=== PATIENT | female | born 1950 | race Two or more races ===

== ENCOUNTER 2022-09-13 06:33 | Outpatient (OUT) | payer MEDICARE, MEDICAID, SELFPAY ==
[2022-09-13 07:05] LABS: Basophils Percent Auto 0.4 % (0.2-2.0); Eosinophils Absolute Auto 0.2 10^3/uL (0.0-0.7); Eosinophils Percent Auto 2.4 % (0.9-7.0); Hematocrit 40.8 % (36.0-48.0); Hemoglobin 13.4 g/dL (12.0-16.0); Immature Granulocytes Abs Auto 0.02 10^3/uL (0.00-0.03); Immature Granulocytes Pct Auto 0.3 % (0.0-0.5); Lymphocytes Absolute Auto 2.6 10^3/uL (1.2-3.8); Lymphocytes Percent Auto 35.6 % (20.5-60.0); Mean Corpuscular HGB Conc 32.8 g/dL (29.9-35.2); Mean Corpuscular Hemoglobin 31.2 pg (26.7-34.0); Mean Corpuscular Volume 94.9 fL (81.0-99.0); Mean Platelet Volume 9.9 fL (9.5-13.5); Monocytes Absolute Auto 0.5 10^3/uL (0.3-0.8); Monocytes Percent Auto 6.6 % (1.7-12.0); Neutrophils Percent Auto 54.7 % (43.0-75.0); Platelet Count 247 10^3/uL (150-450); Red Cell Distribution Width 13.2 % (11.0-15.0); White Blood Count 7.4 10^3/uL (4.0-11.0)
[2022-09-13 07:30] LABS: Estimated Average Glucose 134 mg/dL; Glycohemoglobin A1C 6.3 % (4.5-6.2)
[2022-09-13 07:33] LABS: Alanine Aminotransferase 31 U/L (14-59); Albumin Globulin Ratio 0.8; Albumin Level 3.7 g/dL (3.4-5.0); Alkaline Phosphatase 76 U/L (46-116); Anion Gap 12.5; Aspartate Amino Transferase 13 U/L (15-37); BUN Creatinine Ratio 34.5; Bilirubin Total 0.4 mg/dL (0.2-1.0); Calcium 9.2 mg/dL (8.5-10.1); Carbon Dioxide 28.8 mmol/L (21.0-32.0); Chloride 101 mmol/L (98-107); Estimated GFR (African America >60 (>=60); Estimated GFR (Non-African Ame >60 (>=60); Globulin 4.6 g/dL; Glucose 212 mg/dL (74-106); Potassium 4.3 mmol/L (3.5-5.1); Sodium 138 mmol/L (136-145); Total Protein 8.3 g/dL (6.4-8.2)
[2022-09-13 07:43] LABS: Thyroid Stimulating Hormone 1.067 uIU/mL (0.358-3.740)
== END 2022-09-13 06:34 | disposition home or self-care (01) ==
LOC: LAB 06:33
PROVIDERS: PCP Nurse Practitioner; Visit Provider Nurse Practitioner
DX: E11.69 Type 2 diabetes mellitus with other specified complication (principal); I10 Essential (primary) hypertension
CPT/HCPCS: 36415; 80053; 80061; 82306; 83036; 84436; 84443; 85025

== ENCOUNTER 2022-10-02 10:48 | Outpatient (REF) | payer MEDICARE, MEDICAID, SELFPAY ==
[2022-10-02 11:18] LABS: Microalbumin Urine Random <1.3 mg/dL (<=30.0)
== END 2022-10-02 10:49 | disposition home or self-care (01) ==
LOC: LAB 10:48
PROVIDERS: PCP Nurse Practitioner; Visit Provider Nurse Practitioner
DX: E11.69 Type 2 diabetes mellitus with other specified complication (principal); I10 Essential (primary) hypertension
CPT/HCPCS: 82043

== ENCOUNTER 2022-11-19 20:30 | Emergency (ER) | payer MEDICARE, MEDICAID, SELFPAY ==
[2022-11-19 20:25] VITALS: BP 187/86; PULSE 98; RESP 20; TEMP 36.1; O2SAT 96; BMI 31.8
--- NOTE | 2022-11-19 20:36 | ED_ITS ---
Documented by User: [email or web address] Carranzaon 11/19/22 22:08 HPI - General Adult General Chief complaint: Altered Mental Status Stated complaint: HYPERGLYCEMIA Time Seen by Provider: 11/19/22 20:33 Source: other Source information: EMS Mode of arrival: ambulance Limitations: altered mental status History of Present Illness HPI narrative: 72 year old female presents to the ED via EMS for hyperglycemia. She has hx DM. She was sent from [facility]. Pt states she is feeling well and has no complaints at this time. She denies pain. Denies CP, SOB, abd pain, emesis, diar janie. She has hx MRDD and congenital blindness. Staff at her facility reported they recently discontinued her Metformin and doubled her trulicity dose. Her metformin was discontinued due to loose stools. Related Data Allergies Allergy/AdvReac Type Severity Reaction Status Date / Time Unable to Assess Allergy Verified 11/19/22 20:31 Review of Systems ROS Constitutional Denies: fever or chills Ears, nose, mouth, and throat Denies: throat pain Cardiovascular Denies: chest pain Respiratory Denies: shortness of breath or cough Gastrointestinal Denies: abdominal pain, nausea, vomiting or diarrhea Genitourinary Denies: painful urination, urinary frequency or urinary urgency Exam Constitutional Vital Signs, click to edit/add: Last Vital Signs Temp 97.0 F L 11/19/22 20:25 Pulse 98 H 11/19/22 20:25 Resp 20 11/19/22 20:25 BP 187/86 H 11/19/22 20:25 Pulse Ox 96 11/19/22 20:25 O2 Del Method Room Air 11/19/22 20:25 Common normals: no apparent distress and oriented x3 (at baseline) General appearance: cooperative and comfortable; not in distress and not ill appearing [facility] Head and scalp: normal to inspection Face and sinus: face symmetric Nose: external nose normal Mouth: oral and palatal mucosa normal, lip normal and tongue normal Neck & C-Spine Common normals: supple Chest Chest: symmetrical chest wall rise Respiratory Common normals: normal respiratory effort, no use of accessory muscles and clear to auscultation bilaterally Effort & inspection: symmetric chest movement Cardio Common normals: regular rate and regular rhythm GI Common normals: soft to palpation and non-tender Other: Abdomen round Extremity Common normals: normal capillary refill Neuro Common normals: moves all extremities Sensorium/orientation: awake Course Vital Signs Vital signs: Vital Signs Temperature 97.0 F L 11/19/22 20:25 Pulse Rate 98 H 11/19/22 20:25 Respiratory Rate 20 11/19/22 20:25 Blood Pressure 187/86 H 11/19/22 20:25 Pulse Oximetry 96 11/19/22 20:25 Oxygen Delivery Method Room Air 11/19/22 20:25 Temperature 97.0 F L 11/19/22 20:25 Pulse Rate 98 H 11/19/22 20:25 Respiratory Rate 20 11/19/22 20:25 Blood Pressure 187/86 H 11/19/22 20:25 Pulse Oximetry 96 11/19/22 20:25 Oxygen Delivery Method Room Air 11/19/22 20:25 Medical Decision Making MDM Narrative Medical decision making narrative: Her blood sugar was 389. SQ insulin was ordered. Care was resumed to Dr. Ramos. See her dictation for further evaluation and treatment. The plan is to discharge the patient back to her correction. Medical Records Medical records reviewed: Yes I reviewed the patient's medical records Lab Data Lab results reviewed: Yes I reviewed the patient's lab results Labs: Lab Results 11/19/22 11/19/22 11/19/22 Range/Units 21:00 21:16 22:42 WBC 7.5 (4.0-11.0) 10^3/uL RBC 4.30 (4.20-5.40) 10^6/uL Hgb 13.4 (12.0-16.0) g/dL Hct 40.1 (36.0-48.0) % MCV 93.3 (81.0-99.0) fL MCH 31.2 (26.7-34.0) pg MCHC 33.4 (29.9-35.2) g/dL RDW 13.2 (11.0-15.0) % Plt Count 250 (150-450) 10^3/uL MPV 10.1 (9.5-13.5) fL Neut % (Auto) 56.8 (43.0-75.0) % Lymph % (Auto) 34.0 (20.5-60.0) % [place] % (Auto) 6.9 (1.7-12.0) % Eos % (Auto) 1.7 (0.9-7.0) % Baso % (Auto) 0.3 (0.2-2.0) % Neut # (Auto) 4.3 (1.4-6.5) 10^3/uL Lymph # (Auto) 2.6 (1.2-3.8) 10^3/uL [place] # (Auto) 0.5 (0.3-0.8) 10^3/uL Eos # (Auto) 0.1 (0.0-0.7) 10^3/uL Baso # (Auto) 0.0 (0.0-0.1) 10^3/uL Abs Immat Gran (auto) 0.02 (0.00-0.03) 10^3/uL Imm/Tot Granulo (auto) 0.3 (0.0-0.5) % VBG pH 7.376 (7.330-7.430) VBG pCO2 45.8 (40.0-52.0) mmHg Sodium 135 L (136-145) mmol/L Potassium 4.1 (3.5-5.1) mmol/L Chloride 101 (98-107) mmol/L Carbon Dioxide 26.6 (21.0-32.0) mmol/L Anion Gap 11.5 BUN 18.0 (7.0-18.0) mg/dL Creatinine 0.79 (0.55-1.02) mg/dL Est GFR ( Amer) >60 (>=60) Est GFR (Non-Af Amer) >60 (>=60) BUN/Creatinine Ratio 22.8 Glucose 389 H (74-106) mg/dL Calcium 8.9 (8.5-10.1) mg/dL Total Bilirubin 0.4 (0.2-1.0) mg/dL AST 19 (15-37) U/L ALT 43 (14-59) U/L Alkaline Phosphatase 87 (46-116) U/L Total Protein 8.1 (6.4-8.2) g/dL Albumin 3.8 (3.4-5.0) g/dL Globulin 4.3 g/dL Albumin/Globulin Ratio 0.9 Urine Color Lt. yellow (YELLOW) Urine Clarity Clear (CLEAR) Urine pH 6.5 (5.0-9.0) Ur Specific [place] <=1.005 A (1.005-1.025) Urine Protein Negative (NEG/TRACE) mg/dL Urine Glucose (UA) >=1000 A (NEGATIVE) mg/dL Urine Ketones Negative (NEGATIVE) mg/dL Urine Occult Blood Negative (NEGATIVE) Urine Nitrite Negative (NEGATIVE) Urine Bilirubin Negative (NEGATIVE) Urine Urobilinogen 0.2 (0.2-1.0) EU/dL Ur Leukocyte Esterase Small A (NEGATIVE) Urine RBC 0-2 (0-2) #/HPF Urine WBC 0-2 A (NONE SEEN) #/HPF Ur Squamous Epith Cells Rare (NONE/RARE) #/LPF Urine Crystals None seen (None Seen) #/HPF Urine Bacteria None seen (NONE SEEN) #/HPF Urine Casts None seen (NONE SEEN) #/LPF Urine Mucus None seen (NONE SEEN) Ur Culture Indicated? Yes POC Glucose 296 H (74-106) mg/dL Discharge Plan Discharge Chief Complaint: Altered Mental Status Clinical Impression: Hyperglycemia Patient Disposition: Home, Self-Care Time of Disposition Decision: 23:17 Condition: Good Mode of Transportation: Private Vehicle Instructions: Diabetic Hyperglycemia (ED) Stand Alone Forms: Portal Instructions Referrals: ANIKA BARKSDALE [Primary Care Provider] - 1 week Documented by User: Rachel Ramos MD 11/19/22 23:24 HPI - General Adult General Chief complaint: Altered Mental Status Stated complaint: HYPERGLYCEMIA Time Seen by Provider: 11/19/22 20:33 Related Data Allergies Allergy/AdvReac Type Severity Reaction Status Date / Time Unable to Assess Allergy Verified 11/19/22 20:31 Exam Constitutional Vital Signs, click to edit/add: Last Vital Signs Temp 97.0 F L 11/19/22 20:25 Pulse 98 H 11/19/22 20:25 Resp 20 11/19/22 20:25 BP 187/86 H 11/19/22 20:25 Pulse Ox 96 11/19/22 20:25 O2 Del Method Room Air 11/19/22 20:25 Course Vital Signs Vital signs: Vital Signs Temperature 97.0 F L 11/19/22 20:25 Pulse Rate 98 H 11/19/22 20:25 Respiratory Rate 20 11/19/22 20:25 Blood Pressure 187/86 H 11/19/22 20:25 Pulse Oximetry 96 11/19/22 20:25 Oxygen Delivery Method Room Air 11/19/22 20:25 Temperature 97.0 F L 11/19/22 20:25 Pulse Rate 98 H 11/19/22 20:25 Respiratory Rate 20 11/19/22 20:25 Blood Pressure 187/86 H 11/19/22 20:25 Pulse Oximetry 96 11/19/22 20:25 Oxygen Delivery Method Room Air 11/19/22 20:25 Medical Decision Making MDM Narrative Medical decision making narrative: Her blood sugar was 389. SQ insulin was ordered. Care was resumed to Dr. Ramos. See her dictation for further evaluation and treatment. The plan is to discharge the patient back to her correction. This patient was seen and evaluated conjunction with the nurse practitioner. Please refer to her H and P. The patient was sent to the emergency department for evaluation of elevated blood pressure after recent medication change. They noted that she was not having any mental status changes. She has not had any fever. She has not had any vomiting or diarrhea. She has no sign of DKA. She is alert and active in the emergency department. Blood pressure was noted to be elevated. Her labs are normal with the exception of glucose of 389. She was given subcutaneous insulin and on recheck she is under 300. She will be discharged home at this time with recommendation for close follow-up with her family physician. Lab Data Lab results narrative: normal with elevated glucose, no normal Venous Ph and PCO2. Urine culture pending Labs: Lab Results 11/19/22 11/19/22 11/19/22 Range/Units 21:00 21:16 22:42 WBC 7.5 (4.0-11.0) 10^3/uL RBC 4.30 (4.20-5.40) 10^6/uL Hgb 13.4 (12.0-16.0) g/dL Hct 40.1 (36.0-48.0) % MCV 93.3 (81.0-99.0) fL MCH 31.2 (26.7-34.0) pg MCHC 33.4 (29.9-35.2) g/dL RDW 13.2 (11.0-15.0) % Plt Count 250 (150-450) 10^3/uL MPV 10.1 (9.5-13.5) fL Neut % (Auto) 56.8 (43.0-75.0) % Lymph % (Auto) 34.0 (20.5-60.0) % [place] % (Auto) 6.9 (1.7-12.0) % Eos % (Auto) 1.7 (0.9-7.0) % Baso % (Auto) 0.3 (0.2-2.0) % Neut # (Auto) 4.3 (1.4-6.5) 10^3/uL Lymph # (Auto) 2.6 (1.2-3.8) 10^3/uL [place] # (Auto) 0.5 (0.3-0.8) 10^3/uL Eos # (Auto) 0.1 (0.0-0.7) 10^3/uL Baso # (Auto) 0.0 (0.0-0.1) 10^3/uL Abs Immat Gran (auto) 0.02 (0.00-0.03) 10^3/uL Imm/Tot Granulo (auto) 0.3 (0.0-0.5) % VBG pH 7.376 (7.330-7.430) VBG pCO2 45.8 (40.0-52.0) mmHg Sodium 135 L (136-145) mmol/L Potassium 4.1 (3.5-5.1) mmol/L Chloride 101 (98-107) mmol/L Carbon Dioxide 26.6 (21.0-32.0) mmol/L Anion Gap 11.5 BUN 18.0 (7.0-18.0) mg/dL Creatinine 0.79 (0.55-1.02) mg/dL Est GFR ( Amer) >60 (>=60) Est GFR (Non-Af Amer) >60 (>=60) BUN/Creatinine Ratio 22.8 Glucose 389 H (74-106) mg/dL Calcium 8.9 (8.5-10.1) mg/dL Total Bilirubin 0.4 (0.2-1.0) mg/dL AST 19 (15-37) U/L ALT 43 (14-59) U/L Alkaline Phosphatase 87 (46-116) U/L Total Protein 8.1 (6.4-8.2) g/dL Albumin 3.8 (3.4-5.0) g/dL Globulin 4.3 g/dL Albumin/Globulin Ratio 0.9 Urine Color Lt. yellow (YELLOW) Urine Clarity Clear (CLEAR) Urine pH 6.5 (5.0-9.0) Ur Specific [place] <=1.005 A (1.005-1.025) Urine Protein Negative (NEG/TRACE) mg/dL Urine Glucose (UA) >=1000 A (NEGATIVE) mg/dL Urine Ketones Negative (NEGATIVE) mg/dL Urine Occult Blood Negative (NEGATIVE) Urine Nitrite Negative (NEGATIVE) Urine Bilirubin Negative (NEGATIVE) Urine Urobilinogen 0.2 (0.2-1.0) EU/dL Ur Leukocyte Esterase Small A (NEGATIVE) Urine RBC 0-2 (0-2) #/HPF Urine WBC 0-2 A (NONE SEEN) #/HPF Ur Squamous Epith Cells Rare (NONE/RARE) #/LPF Urine Crystals None seen (None Seen) #/HPF Urine Bacteria None seen (NONE SEEN) #/HPF Urine Casts None seen (NONE SEEN) #/LPF Urine Mucus None seen (NONE SEEN) Ur Culture Indicated? Yes POC Glucose 296 H (74-106) mg/dL Discharge Plan Discharge Chief Complaint: Altered Mental Status Clinical Impression: Hyperglycemia Patient Disposition: Home, Self-Care Time of Disposition Decision: 23:17 Condition: Good Mode of Transportation: Private Vehicle Instructions: Diabetic Hyperglycemia (ED) Stand Alone Forms: Portal Instructions Referrals: ANIKA BARKSDALE [Primary Care Provider] - 1 week
[2022-11-19 21:16] LABS: PCO2 VBG 45.8 mmHg (40.0-52.0); pH VBG 7.376 (7.330-7.430)
[2022-11-19 21:17] LABS: Basophils Percent Auto 0.3 % (0.2-2.0); Eosinophils Absolute Auto 0.1 10^3/uL (0.0-0.7); Eosinophils Percent Auto 1.7 % (0.9-7.0); Hematocrit 40.1 % (36.0-48.0); Hemoglobin 13.4 g/dL (12.0-16.0); Immature Granulocytes Abs Auto 0.02 10^3/uL (0.00-0.03); Immature Granulocytes Pct Auto 0.3 % (0.0-0.5); Lymphocytes Absolute Auto 2.6 10^3/uL (1.2-3.8); Mean Corpuscular HGB Conc 33.4 g/dL (29.9-35.2); Mean Corpuscular Hemoglobin 31.2 pg (26.7-34.0); Mean Corpuscular Volume 93.3 fL (81.0-99.0); Mean Platelet Volume 10.1 fL (9.5-13.5); Monocytes Absolute Auto 0.5 10^3/uL (0.3-0.8); Monocytes Percent Auto 6.9 % (1.7-12.0); Neutrophils Absolute Auto 4.3 10^3/uL (1.4-6.5); Neutrophils Percent Auto 56.8 % (43.0-75.0); Platelet Count 250 10^3/uL (150-450); Red Cell Distribution Width 13.2 % (11.0-15.0); White Blood Count 7.5 10^3/uL (4.0-11.0)
[2022-11-19 21:46] LABS: Alanine Aminotransferase 43 U/L (14-59); Albumin Globulin Ratio 0.9; Albumin Level 3.8 g/dL (3.4-5.0); Alkaline Phosphatase 87 U/L (46-116); Anion Gap 11.5; Aspartate Amino Transferase 19 U/L (15-37); BUN Creatinine Ratio 22.8; Bilirubin Total 0.4 mg/dL (0.2-1.0); Calcium 8.9 mg/dL (8.5-10.1); Carbon Dioxide 26.6 mmol/L (21.0-32.0); Chloride 101 mmol/L (98-107); Estimated GFR (African America >60 (>=60); Estimated GFR (Non-African Ame >60 (>=60); Globulin 4.3 g/dL; Glucose 389 mg/dL (74-106); Potassium 4.1 mmol/L (3.5-5.1); Sodium 135 mmol/L (136-145); Total Protein 8.1 g/dL (6.4-8.2)
[2022-11-19 22:01] LABS: Bilirubin Urine NEGATIVE (NEGATIVE); Blood Urine NEGATIVE (NEGATIVE); Clarity Urine CLEAR (CLEAR); Color Urine LT. YELLOW (YELLOW); Glucose Urine UA >=1000 mg/dL (NEGATIVE); Ketones Urine NEGATIVE (NEGATIVE); Leukocyte Esterase Urine SMALL (NEGATIVE); Nitrite Urine NEGATIVE (NEGATIVE); Protein Urine NEGATIVE (NEG/TRACE); Specific Gravity Urine <=1.005 (1.005-1.025); Urobilinogen Urine 0.2 EU/dL (0.2-1.0); pH Urine 6.5 (5.0-9.0)
[2022-11-19] MEDS: INSULIN REGULAR 300 UNITS/3 ML 4 UNIT SUBQ (22:06)
[2022-11-19 22:08] LABS: Urine Microscopic Indicated YES
[2022-11-19 22:10] LABS: Bacteria Urine NONE SEEN #/HPF (NONE SEEN); Cast Seen? NONE SEEN #/LPF (NONE SEEN); Crystals Seen? None Seen #/HPF (None Seen); Mucus Urine NONE SEEN (NONE SEEN); RBC Urine 0-2 #/HPF (0-2); Squamous Epithelial Cell Urine RARE #/LPF (NONE/RARE); Urine Culture Indicated YES; WBC Urine 0-2 #/HPF (NONE SEEN)
[2022-11-19 22:43] LABS: Glucometer 296 mg/dL (74-106)
== END 2022-11-19 23:56 | disposition home or self-care (01) ==
PROVIDERS: Nurse Practitioner Family; Emergency Provider Emergency Medicine; PCP Nurse Practitioner
DX: E11.65 Type 2 diabetes mellitus with hyperglycemia (principal); F79 Unspecified intellectual disabilities; H54.3 Unqualified visual loss, both eyes; R82.998 Other abnormal findings in urine
CPT/HCPCS: 36415; 80053; 81001; 82800; 85025; 87086; 87150; 87186; 99285

== ENCOUNTER 2023-06-27 06:38 | Outpatient (OUT) | payer MEDICARE, MEDICAID, SELFPAY ==
[2023-06-27 07:41] LABS: Basophils Percent Auto 0.4 % (0.2-2.0); Eosinophils Absolute Auto 0.1 10^3/uL (0.0-0.7); Eosinophils Percent Auto 1.4 % (0.9-7.0); Hematocrit 44.2 % (36.0-48.0); Hemoglobin 14.4 g/dL (12.0-16.0); Immature Granulocytes Abs Auto 0.02 10^3/uL (0.00-0.03); Immature Granulocytes Pct Auto 0.3 % (0.0-0.5); Lymphocytes Absolute Auto 3.1 10^3/uL (1.2-3.8); Mean Corpuscular HGB Conc 32.6 g/dL (29.9-35.2); Mean Corpuscular Hemoglobin 31.1 pg (26.7-34.0); Mean Corpuscular Volume 95.5 fL (81.0-99.0); Mean Platelet Volume 10.3 fL (9.5-13.5); Monocytes Absolute Auto 0.5 10^3/uL (0.3-0.8); Monocytes Percent Auto 6.7 % (1.7-12.0); Neutrophils Absolute Auto 3.6 10^3/uL (1.4-6.5); Neutrophils Percent Auto 49.2 % (43.0-75.0); Platelet Count 245 10^3/uL (150-450); Red Blood Count 4.63 10^6/uL (4.20-5.40); Red Cell Distribution Width 13.3 % (11.0-15.0); White Blood Count 7.3 10^3/uL (4.0-11.0)
[2023-06-27 09:04] LABS: Alanine Aminotransferase 49 U/L (14-59); Albumin Globulin Ratio 0.8; Albumin Level 3.9 g/dL (3.4-5.0); Alkaline Phosphatase 89 U/L (46-116); Anion Gap 14.6; Aspartate Amino Transferase 18 U/L (15-37); BUN Creatinine Ratio 17.6; Bilirubin Total 0.7 mg/dL (0.2-1.0); Calcium 9.3 mg/dL (8.5-10.1); Carbon Dioxide 29.2 mmol/L (21.0-32.0); Chloride 100 mmol/L (98-107); Chol HDL Ratio 2.4; Cholesterol 151 mg/dL (<=200); Estimated GFR (African America >60 (>=60); Estimated GFR (Non-African Ame >60 (>=60); Globulin 4.8 g/dL; Glucose 175 mg/dL (74-106); HDL Cholesterol 62 mg/dL (40-60); Potassium 3.8 mmol/L (3.5-5.1); Sodium 140 mmol/L (136-145); Total Protein 8.7 g/dL (6.4-8.2); Triglycerides 69 mg/dL (<=150); VLDL CHOLESTEROL 13.8 mg/dL
[2023-06-27 11:44] LABS: Estimated Average Glucose 355 mg/dL; Glycohemoglobin A1C >14.0 % (4.5-6.2)
== END 2023-06-27 06:39 | disposition home or self-care (01) ==
LOC: LAB 06:38
PROVIDERS: PCP Nurse Practitioner; Visit Provider Nurse Practitioner
DX: E11.69 Type 2 diabetes mellitus with other specified complication (principal); E78.2 Mixed hyperlipidemia
CPT/HCPCS: 36415; 80053; 80061; 83036; 85025

== ENCOUNTER 2024-03-06 06:50 | Outpatient (OUT) | payer MEDICARE, MEDICAID, SELFPAY ==
[2024-03-06 07:35] LABS: Basophils Percent Auto 0.4 % (0.2-2.0); Eosinophils Absolute Auto 0.2 10^3/uL (0.0-0.7); Eosinophils Percent Auto 2.8 % (0.9-7.0); Hematocrit 43.6 % (36.0-48.0); Immature Granulocytes Abs Auto 0.02 10^3/uL (0.00-0.03); Immature Granulocytes Pct Auto 0.3 % (0.0-0.5); Lymphocytes Absolute Auto 2.7 10^3/uL (1.2-3.8); Lymphocytes Percent Auto 34.3 % (20.5-60.0); Mean Corpuscular HGB Conc 32.1 g/dL (29.9-35.2); Mean Corpuscular Hemoglobin 28.6 pg (26.7-34.0); Mean Platelet Volume 9.6 fL (9.5-13.5); Monocytes Absolute Auto 0.5 10^3/uL (0.3-0.8); Monocytes Percent Auto 5.6 % (1.7-12.0); Neutrophils Absolute Auto 4.5 10^3/uL (1.4-6.5); Neutrophils Percent Auto 56.6 % (43.0-75.0); Platelet Count 267 10^3/uL (150-450); Red Cell Distribution Width 14.2 % (11.0-15.0)
[2024-03-06 08:34] LABS: Alanine Aminotransferase 34 U/L (14-59); Albumin Globulin Ratio 0.8; Albumin Level 3.6 g/dL (3.4-5.0); Alkaline Phosphatase 93 U/L (46-116); Anion Gap 13.9; Aspartate Amino Transferase 17 U/L (15-37); BUN Creatinine Ratio 13.2; Bilirubin Total 0.5 mg/dL (0.2-1.0); Calcium 9.3 mg/dL (8.5-10.1); Carbon Dioxide 33.1 mmol/L (21.0-32.0); Chloride 100 mmol/L (98-107); Chol HDL Ratio 2.3; Cholesterol 154 mg/dL (<=200); Estimated GFR (African America >60 (>=60 mL/min/1.73m^2); Estimated GFR (Non-African Ame >60 (>=60 mL/min/1.73m^2); Globulin 4.8 g/dL; Glucose 209 mg/dL (74-106); HDL Cholesterol 68 mg/dL (40-60); Sodium 143 mmol/L (136-145); Total Protein 8.4 g/dL (6.4-8.2); Triglycerides 61 mg/dL (<=150); VLDL CHOLESTEROL 12.2 mg/dL
[2024-03-06 10:05] LABS: Estimated Average Glucose 203 mg/dL; Glycohemoglobin A1C 8.7 % (4.5-6.2)
== END 2024-03-06 06:51 | disposition home or self-care (01) ==
LOC: LAB 06:51
PROVIDERS: PCP Nurse Practitioner; Visit Provider Nurse Practitioner
DX: E55.9 Vitamin D deficiency, unspecified (principal); E11.69 Type 2 diabetes mellitus with other specified complication; E11.9 Type 2 diabetes mellitus without complications; I10 Essential (primary) hypertension
CPT/HCPCS: 36415; 80053; 80061; 83036; 85025

== ENCOUNTER 2025-03-22 06:31 | Outpatient (OUT) | payer MEDICARE, MEDICAID, SELFPAY ==
--- OUTSIDE RECORDS SUMMARY | 2025-03-22 06:34 | XMS_ITS | Clinical Summary ---
Author Organization [facility] tem Address [id number] [place] [address] Care Team Providers Care Investor Relations Analyst Name Role Phone Heron Edwards FIGHTER PILOT-COMMUNITY ENGAGEMENT REPRESENTATIVE Primary Care Provider + Allergies Active AllergyReactionsCriticalityNoted DateCommentsNo Known Drug Allergies 08/01/2016 Medications * This document contains information received from the source organization and may not represent a complete record from that organization. MedicationSigDispense QuantityRefillsLast FilledStart DateEnd DateStatus eyelid cleanser combination 7 foam Apply topically. Tue, thur , sunActive CHEST CONGESTION RELIEF 100 mg/5 mL syrup TAKE 5 ML BY MOUTH EVERY 6 HOURS NEEDED FOR COUGH 473 mL ctive ammonium lactate (LAC-HYDRIN) 12 % lotion APPLY TOPICALLY TO DRY SKIN 2 TIMES DAILY NEEDED 225 g 3Active SITagliptin phosphate (JANUVIA) 100 mg tablet Indications: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)TAKE 1 TABLET BY MOUTH EVERY MORNING 30 tablet 5Active loperamide (IMODIUM) 2 mg capsule TAKE 1 CAPSULE BY MOUTH 4 TIMES DAILY NEEDED FOR DIARRHEA (MAX 16MG/24HRS) 30 capsule 5Active metFORMIN XR (GLUCOPHAGE XR) 500 mg 24 hr tablet Indications: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)Take 1 tablet (500 mg total) by mouth daily with breakfast. 30 tablet 5Active tirzepatide (MOUNJARO) 10 mg/0.5 mL pen injector Indications:DM type 2 with diabetic mixed hyperlipidemia [place]Inject 10 mg under the skin once a week. 2 mL 11006/17/5Active acetaminophen (TYLENOL) 325 mg tablet TAKE 2 TABLETS (650MG) BY MOUTH EVERY 6 HOURS NEEDED FOR MINOR DISCOMFORT OR TEMPERATURE GREATERTHAN 101 60 tablet 11006/18/5Active risperiDONE (RisperDAL) 0.5 mg tablet Indications:Impulse control disorderTake 1 tablet (0.5 mg total) by mouth in the morning and at bedtime. 62 tablet 1105Active escitalopram (LEXAPRO) 10 mg tablet Indications:Impulse control disorderTake 1 tablet (10 mg total) by mouth every morning. 31 tablet 1105Active aspirin 81 mg Indications:DM type 2, not at goal [place]Essential hypertensionTAKE 1 TABLET BY MOUTH ONCE EVERY DAY FOR HYPERTENSION (8PM) 90 tablet 107/5Active alendronate (FOSAMAX) 70 mg tablet TAKE 1 TABLET BY MOUTH ONCE WEEKLY ON SATURDAY 30 MIN BEFORE 1ST MEAL AND OTHER MEDS W/FULL GLASS WATER AND REMAIN UPRIGHT FOR 1/2 HR (6:30AM) 4 tablet 5Active chlorhexidine (PERIDEX) 0.12 % solution Indications:Decay, teeth,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, without long-term current use of insulin [place]Apply 15 mL to the mouth or throat in the morning and 15 mL before bedtime. 946 mL 110//5Active atorvastatin (LIPITOR) 10 mg tablet Indications:DM type 2 with diabetic mixed hyperlipidemia ([facility])Take 1 tablet (10 mg total) by mouth in the morning. 30 tablet 5Active cholecalciferol, vitamin D3, 2,000 units capsule Indications:Vitamin D deficiencyTake 1 capsule (2,000 Units total) by mouth in the morning. 30 capsule //5Active amLODIPine (NORVASC) 10 mg tablet Indications:DM type 2 with diabetic mixed hyperlipidemia ([facility])Take 1 tablet (10 mg total) by mouth every morning. 30 tablet 509//5Active tolnaftate (TINACTIN) 1 % powder APPLY TOPICALLY TO AFFECTED AREA OF EXCORIATION UNDER BREAST 2 TIMES DAILY NEEDED 45 g 1012/28/2025Active tolnaftate (TINACTIN) 1 % powder APPLY TOPICALLY TO AFFECTED AREA OF EXCORIATION UNDER BREAST 2 TIMES DAILY NEEDED 45 g 4105/22/2024Discontinued Active Problems ProblemNoted DateDiagnosed DateDental ownfwq5907/24/2021 Overview (02/20/2022): Added automatically from request for surgery [id number] Localized edema2Diabetes mellitus treated with injections of non- insulin /17/8093Fooijsfsuefaa37/17/2020Medicare annual wellness visit, ttmihiymre19/19/2018Impulse control hndwvohr45/15/2018Intellectual iabyewuorh74/12/2018Receptive language bogsbobq42/12/2018Ventricular diastolic dysfunction determined by gpaukosxbfuunelk87/10/2017Heart syyejd1512/19/2016 Elevated ALT uxnkvkvprjr97/27/2017Essential ozjhyksmxijm75/07/2017DM type 2 with diabetic mixed awmiphixlalads76/07/2017 Resolved Problems ProblemNoted DateDiagnosed DateResolved DateImpacted cerumen of both ears Encounters DateTypeDepartmentCare IftlWgblwgvoiyl05/24/2025Refill [facility] [address] [place] [address] Heron Edwards, FIGHTER PILOT-COMMUNITY ENGAGEMENT REPRESENTATIVE 01/04/2025 1:40 PM EDTOffice Visit [facility] [address] [place] [address] Heron Edwards, FIGHTER PILOT-COMMUNITY ENGAGEMENT REPRESENTATIVE Diabetes mellitus treated with injections of non-insulin medication ([facility]) (Primary Dx); Essential hypertension; Encounter for ftvpmsuyryjp21/13/3294Rbzpnd85/29/2025Orders Only [facility] [address] [place] [address] Lloyd Barragan, DO DM type 2 with diabetic mixed hyperlipidemia ([facility]); Vitamin D deficiencyfrom Last 3 Months Immunizations ImmunizationAdministration DatesNext DueCOVID-19, mRNA, LNP-S, PF, 100mcg/0.5mL Dose05/02/2020,04/04/2020OVID-19, mRNA, LNP-S, PF, 30mcg/0.3mL Dose05/02/2020, 04/04/2020H1N1 Inj03/02/2009Hepatitis B012/18/1982,05/04/1982Influenza High Dose Preservative Free IM01/23/2021,01/05/2019,01/09/2018Influenza Vaccine, Quadrivalent, Ovniecktfi40/03/2023,02/01/2022Influenza, High-dose, Quadrivalent 01/14/2020Influenza, Injectable, quadrivalent (PF)12/31/2016Influenza, Trivalent, Xhhsoahgkb01/13/2025,02/07/2024Influenza, Ududwbfeyyd07/09/2017MMR 09/11/1982Pneumococcal Conjugate 20-sjiqaa473Pneumococcal Polysaccharide 02/16/2013,02/08/2006Polio, Poircebwjrk63/17/9077Lznympyg23/27/1971Td (adult), 2 Lf tetanus toxoid, preservative free, /12/1993,09/11/1982,04/06/1979 Td, Ulpifbukbvd06/12/1993,09/11/1982,04/06/1979Tdap11/28/2010Typhoid, Rpmhzsvomiz77/24/1973Zoster Live12/02/2018Zoster Vaccine Ankonqvzsqc52/02/2019, 12/02/2018 Family History Medical HistoryRelationNameCommentsBreast cancerNeg Hx Social History Tobacco UseTypesPacks/DayYears UsedDateSmoking Tobacco: NeverSmokeless Tobacco: Never Tobacco Cessation:Counseling Given: Not Answered Alcohol UseStandard Drinks/WeekCommentsNo0 (1 standard drink = 0.6 oz pure alcohol)Overall Financial Resource Strain (CARDIA)AnswerDate RecordedHow hard is it for you to pay for the very basics like food, housing, medical care, and heating?Not hard at all01/04/2025PHQ-2AnswerDate RecordedTotal Ogvny515 PRAPARE - TransportationAnswerDate RecordedIn the past 12 months, has lack of transportation kept you from medical appointments or from getting medications?No 01/04/2025In the past 12 months, has lack of transportation kept you from meetings, work, or from getting things needed for daily living?No01/04/2025 Housing InstabilityAnswerDate RecordedAre you worried or concerned that in the next two months you may not have stable housing that you own, rent or stay in as a part of a household?No01/04/2025hildcareAnswerDate RecordedChildcareUnknown 08/23/2018EmploymentAnswerDate MsboabauGodqgfxyyiKirgufa87/01/2019Hunger ScreeningAnswerDate RecordedWithin the past 12 months we worried whether our food would run out before we got money to buy more.Never True01/04/2025Within the past 12 months the food we bought just didn't last and we didn't have money to get more.Never True01/04/2025Purpose - LifeAnswerDate RecordedPurpose and direction in xojuXutyupq78/15/2021CommentsNoSex and Gender Information ValueDate RecordedSex Assigned at BirthNot on fileLegal FkyYgvsmh40/06/2015 11:33 AM EDTGender IdentityNot on fileSexual OrientationNot on file Last Filed Vital Signs Vital SignReadingTime TakenCommentsBlood Moceqrdy214/6201/04/2025 1:42 PM EDT Lgxvo097901/04/2025 1:42 PM IIAXwdorlfhoeh88.8 ??C (98.3 ??F)01/04/2025 1:42 PM EDTRespiratory Hafs1244 1:42 PM EDTOxygen Abfdtbyfug79%01/04/2025 1:42 PM EDTInhaled Oxygen Concentration--Ksodek27.5 kg (135 lb 9.6 oz)01/04/2025 1:42 PM FNLYwchyc255.3 cm (4' 9.99 )01/04/2025 1:42 PM EDTBody Mass Index28.35 01/04/2025 1:42 PM EDT Plan of Treatment DateTypeDepartmentCare Team (Latest Contact Info)Vmyrgviragh56/13/2026 9:00 AM ESTOffice Visit [facility] [address] [place] [address] Heron Edwards, FIGHTER PILOT-COMMUNITY ENGAGEMENT REPRESENTATIVE [address] [place], [place] [id number] Health MaintenanceDue DateLast DoneCommentsMedicare Annual Wellness Visit /DTaP,Tdap and Td Vaccines (2 - Td or Tdap)11/28/2020 11/28/2010, 01/03/1993, 01/03/1993, Additional history existsDiabetic Ophthalmology Exam/OVID-19 Vaccine ( season) /, 05/02/2020, 05/02/2020, Additional history existsMammogram /04/2024, 02/04/2023, 07/27/2021, Additional history existsDiabetic Foot Exam/dult BMI Follow Up Plan/Fall Risk Ktiqfcfqe64/Statin Use: Vwwaflig38/29//dult BMI Zrdmtbged75/Depression Jxytevtmi30/Tobacco Ypnihifcq12RSV ( or age 60+ yrs) (1 - 1-dose 75+ series)02/02/20261755Cgawwfmzxqp63, 02/19/2022, 11/17/2015Zoster (Shingles) KtknxcoChxguiifs82/02/2019, 12/02/2018, 12/02/2018Influenza Vaccine Fbfguochq61/13/2025, 02/07/2024, 01/25/2023, Additional history exists Medical Devices Not on file Procedures Procedure NamePriorityDate/TimeAssociated DiagnosisCommentsPOCT HEMOGLOBIN A1C Xubbwmh0001/04/2025 2:01 PM EDT Diabetes mellitus treated with injections of non-insulin medication ([facility]) MAMM SCREENING BILATERAL W TQRYoksuom28/02/2025 1:51 PM EST Encounter for screening mammogram for malignant neoplasm of breast MIPLFDWODZU32/28/2022 8:26 AM EST from Last 3 Months or Most Recently Relevant to Health Maintenance Results * (ABNORMAL) POCT Hemoglobin A1c (01/04/2025 2:01 PM EDT)ComponentValueRef Range Test MethodAnalysis TimePerformed AtPathologist SignatureExternal Poct Hgb A1C 7.7(A)4 - 7 %MANUALLY TRANSCRIBED RESULTSSpecimen (Source)Anatomical Location / LateralityCollection Method / VolumeCollection TimeReceived TimeBlood 01/04/2025 2:01 PM EDT Narrative Authorizing ProviderResult TypeResult StatusHeron Edwards FIGHTER PILOT-HE[facility] REHABILITATION CENTERPOINT OF CARE TEST ORDERABLESFinal ResultPerforming OrganizationAddressCity/State/ZIP Code Phone Number MANUALLY TRANSCRIBED RESULTS * Mammography screening bilateral with CAD (03/26/2024 1:51 PM EST)Anatomical RegionLateralityModalityBreastBilateralMammographySpecimen (Source)Anatomical Location / LateralityCollection Method / VolumeCollection TimeReceived Time 03/26/2024 2:08 PM EST Narrative 03/26/2024 2:11 PM EST JOSE JHA 1950 [id number] EXAM: MAMM SCREENING BILATERAL W CAD, 03/26/2024 1:36 PM CLINICAL INDICATIONS: Screening, Encounter for screening mammogram for malignant neoplasm of breast COMPARISON: 02/04/2023 and earlier TECHNIQUE: Bilateral digital tomosynthesis MLO and CC views of the breasts were obtained, with creation of synthetic 2D views. Computer aided detection was utilized. FINDINGS: The breasts are heterogeneously dense, which may obscure small masses. There are no suspicious masses, calcifications, or areas of architectural distortion. IMPRESSION: No mammographic evidence of malignancy. BI-RADS: BI-RADS 1 - Negative RECOMMENDATION: ??Routine screening mammogram in 1 year. RISK ASSESSMENT: TC Lifetime risk: 4.99%. The patient's reported personal and family medical history was used calculate their Tyrer-Cuzick lifetime risk of malignancy. Scores less than 20% are not considered high risk per ACR guidelines and patient should continue with the above recommendation. Finalized by Yan Mary MD on 03/26/2024 2:11 PM 1 c MAMM 1 YR [facility] Accredited Performing Facility: [facility] - Mammography/DEXA Imaging [address] [place] [facility] [address] Procedure Note Yan Mary MD - 03/26/2024 JOSE ABHIJEET 1950 [id number] EXAM: MAMM SCREENING BILATERAL W CAD, 03/26/2024 1:36 PM CLINICAL INDICATIONS: Screening, Encounter for screening mammogram formalignant neoplasm of breast COMPARISON: 02/04/2023 and earlier TECHNIQUE: Bilateral digital tomosynthesis MLO and CC views of the breastswere obtained, with creation of synthetic 2D views. Computer aideddetection was utilized. FINDINGS: The breasts are heterogeneously dense, which may obscure small masses. There are no suspicious masses, calcifications, or areas of architectural distortion. IMPRESSION: No mammographic evidence of malignancy. BI-RADS: BI-RADS 1 - Negative RECOMMENDATION: Routine screening mammogram in 1 year. RISK ASSESSMENT: TC Lifetime risk: 4.99%. The patient's reported personal and family medical history was usedcalculate their Tyrer-Cuzick lifetime risk of malignancy. Scores less than20% are not considered high risk per ACR guidelines and patient shouldcontinue with the above recommendation. Finalized by Yan Mary MD on 03/26/2024 2:11 PM 1 c MAMM 1 YR [facility] Accredited Performing Facility: [facility] - Mammography/DEXA Imaging [address] [place] [facility] [address] Authorizing ProviderResult TypeResult StatusValeritammi Morocho FIGHTER PILOT-CNPIMG MAMMOGRAPHY ORDERABLESFinal Result * Colonoscopy (02/19/2022 8:26 AM EST)Specimen (Source)Anatomical Location / LateralityCollection Method / VolumeCollection TimeReceived Time02/19/2022 8:26 AM EST Narrative PM CARDIOVASCULAR - 02/19/2022 8:46 AM EST [facility] Patient Name: Jose Jha ?? Procedure Date No Time: 02/19/2022 ?? CSN : [id number] Date of : 1950 Admit Type: Outpatient Age: 72 Room: [facility] Gender: Female Note Status: Finalized Attending MD: Sadi Solis DO Procedure: ? Colonoscopy Indications: ? Screening for colorectal malignant neoplasm Providers: ? Sadi Solis, DO Medicines: ? Propofol per Anesthesia Complications: ? No immediate complications. Procedure: ? After I obtained informed consent, the scope was ? passed under direct vision. Throughout the procedure, ? the patient's blood pressure, pulse, and oxygen ? saturations were monitored continuously. The [employer] ? CF-190L # [id number] ADULT COLONOSCOPE was introduced ? through the anus and advanced to the cecum, identified ? by appendiceal orifice and ileocecal valve. The ? colonoscopy was performed without difficulty. The ? patient tolerated the procedure well. The quality of ? the bowel preparation was good. Findings: ? The perianal and digital rectal examinations were normal. ? Many medium-mouthed diverticula were found in the sigmoid colon. ? A 4 mm polyp was found in the distal rectum. The polyp was sessile. The ? polyp was removed with a hot snare. Resection and retrieval were ? complete. ? The exam was otherwise without abnormality. Estimated Blood Loss: ??Estimated blood loss: none. Impression: ?- Diverticulosis in the sigmoid colon. ? - One 4 mm polyp in the distal rectum, removed with a ? hot snare. Resected and retrieved. ? - The examination was otherwise normal. Recommendation: ?- Discharge patient to home. ? - Patient has a contact number available for ? emergencies. The signs and symptoms of potential ? delayed complications were discussed with the patient. ? Return to normal activities tomorrow. Written ? discharge instructions were provided to the patient. ? - High fiber diet for the rest of the patient's life. ? - Repeat colonoscopy in 5 years for surveillance based ? on pathology results. ? - Return to my office PRN. Procedure Code(s): ? --- Professional --- ? 32169, Colonoscopy, flexible; with removal of ? tumor(s), polyp(s), or other lesion(s) by snare ? technique Diagnosis Code(s): ? --- Professional --- ? D12.8, Benign neoplasm of rectum ? Z12.11, Encounter for screening for malignant neoplasm of colon ? K57.30, Diverticulosis of large intestine without perforation or abscess ? without bleeding CPT copyright 2020 [employer]. All rights reserved. The codes documented in this report are preliminary and upon icd 9 coder review may be revised to meet current compliance requirements. DO Sadi Stoner DO 02/19/2022 8:46:29 AM Number of Addenda: 0 Note Initiated On: 02/19/2022 8:26 AM Procedure Note Sadi Solis DO - 02/19/2022 [facility] Patient Name: Jose Jha Procedure Date No Time: 02/19/2022 CSN : [id number] Date of : 1950 Admit Type: Outpatient Age: 72 Room: [place] [address] Gender: Female Note Status: Finalized Attending MD: Sadi Solis DO Procedure: Colonoscopy Indications: Screening for colorectal malignant neoplasm Providers: Sadi Solis DO Medicines: Propofol per Anesthesia Complications: No immediate complications. Procedure: After I obtained informed consent, the scope was passed under direct vision. Throughout theprocedure, the patient's blood pressure, pulse, and oxygen saturations were monitored continuously. [employer] CF-190L # [id number] ADULT COLONOSCOPE was introduced through the anus and advanced to the cecum,identified by appendiceal orifice and ileocecal valve. The colonoscopy was performed without difficulty. The patient tolerated the procedure well. The qualityof the bowel preparation was good. Findings: The perianal and digital rectal examinations were normal. Many medium-mouthed diverticula were found in the sigmoid colon. A 4 mm polyp was found in the distal rectum. The polyp was sessile.The polyp was removed with a hot snare. Resection and retrieval were complete. The exam was otherwise without abnormality. Estimated Blood Loss: Estimated blood loss: none. Impression: - Diverticulosis in the sigmoid colon. - One 4 mm polyp in the distal rectum, removed witha hot snare. Resected and retrieved. - The examination was otherwise normal. Recommendation: - Discharge patient to home. - Patient has a contact number available for emergencies. The signs and symptoms of potential delayed complications were discussed with thepatient. Return to normal activities tomorrow. Written discharge instructions were provided to thepatient. - High fiber diet for the rest of the patient'slife. - Repeat colonoscopy in 5 years for surveillancebased on pathology results. - Return to my office PRN. Procedure Code(s): --- Professional --- 68843, Colonoscopy, flexible; with removal of tumor(s), polyp(s), or other lesion(s) by snare technique Diagnosis Code(s): --- Professional --- D12.8, Benign neoplasm of rectum Z12.11, Encounter for screening for malignant neoplasm of colon K57.30, Diverticulosis of large intestine without perforation orabscess without bleeding CPT copyright 2020 [employer]. All rights reserved. The codes documented in this report are preliminary and upon icd 9 coder reviewmay be revised to meet current compliance requirements. DO Sadi Stoner DO 02/19/2022 8:46:29 AM Number of Addenda: 0 Note Initiated On: 02/19/2022 8:26 AM Authorizing ProviderResult TypeResult StatusMiccitlali ORELLANA PROCEDURE ORDERABLESFinal ResultPerforming OrganizationAddressCity/State/ZIP CodePhone Number PM CARDIOVASCULAR from Last 3 Months or Most Recently Relevant to Health Maintenance Insurance Care Teams Team MemberRelationshipSpecialtyStart DateEnd Date Heron Edwards, FIGHTER PILOT-COMMUNITY ENGAGEMENT REPRESENTATIVE [address] [place] [address] PCP - GeneralInternal Medicine10/22/24
--- OUTSIDE RECORDS SUMMARY | 2025-03-22 06:34 | XMS_ITS | Clinical Summary ---
Author Organization [facility] Address [address] [place], [place] [address] Care Team Providers Care Coal Grader Name Role Phone Rufino Aguilar Primary Care Provider [phone] Social History Tobacco UseTypesPacks/DayYears UsedDateSmoking Tobacco: Never Assessed CommentsUnknownSex and Gender InformationValueDate RecordedSex Assigned at Not on fileLegal KbiEamtxm12/02/2012 10:03 AM ESTGender IdentityNot on file Sexual OrientationNot on file Plan of Treatment Health MaintenanceDue DateLast DoneCommentsAnxiety Vblgpiqwo35/11/1969Depression Ncxwyfajp70/11/1969Hepatitis C Ltxdadyev17/11/1969DTaP,Tdap,Td Vaccine (1 - Tdap)1970Mammogram Ztsartsbv97/11/1991CT Lxjnotnbpimv39/11/1996Cologuard (FIT-DNA)02/03/19960454Ehwuulrkmch06/11/1996Colorectal Cancer Eqpwdzhfs66/11/1996 Diabetes Tsmoufjgs11/11/1996Fecal Occult Blood02/03/1996Lipid Screening 02/03/19966122Gvanflfbeccap31/11/1996Pneumococcal Vaccine: 50+ (1 of 1 - PCV) 2001Shingrix Vaccine (1 of 2)2001Bone Density Kdstnsyff92/11/2016 Advance Directive Lrhjeycjfg35/01/2025ovid-19 Vaccine (1 - 2024- season) 2024Influenza Vaccine (#1)2024RSV Vaccine (1 - 1-dose 75+ series) 2026 Care Teams Team MemberRelationshipSpecialtyStart DateEnd Date Rufino Aguilar [address] [place] [address] [facility] - Tuvmumi09/16/03
--- OUTSIDE RECORDS SUMMARY | 2025-03-22 06:34 | XMS_ITS | CCD ---
Author Organization [facility] Care Team Providers Care Packing House Laborer Name Role Phone Unavailable Primary Care Provider UnavailTelma Shoemaker Unavailable ANIKA MOROCHO Primary Care Unavailable PAY, DR CHAMPION Admitting Unavailable PAY, DR CHAMPION Attending Unavailable ZIEBER, DR MAXIMUS Doe Consulting Unavailable PAY, DR CHAMPION Consulting Unavailable MOROCHO, ANIKA Admitting Unavailable MOROCHO, ANIKA Attending Unavailable MOROCHO, ANIKA Primary Care Unavailable MOROCHO, ANIKA Consulting Unavailable MOROCHO, ANIKA Admitting Unavailable MOROCHO, ANIKA Attending Unavailable MOROCHO, ANIKA Primary Care Unavailable MOROCHO, ANIKA Consulting Unavailable Unavailable Primary Care Provider Unavailedward e PROVIDER, UNKNOWN Admitting Unavailable PROVIDER, UNKNOWN Attending Unavailable ANIKA MOROCHO Referring Unavailable ANIKA MOROCHO Primary Care Unavailable [place] HOUSING AND RESIDENCE LIFE DIRECTOR-THERAPEUTIC ACTIVITIES SERVICES WORKER, Anika Malik Primary Care Provid er MorochoNae Guadarramaerie Unavailable [place] HOUSING AND RESIDENCE LIFE DIRECTOR-THERAPEUTIC ACTIVITIES SERVICES WORKERAnika Primary Care Provid er ARLET CONNORS Attending Unavailable ANIKA MOROCHO Referring Unavailable MOROCHOANIKA Primary Care Unavailable ANIKA MOROCHO Referring Unavailable MOROCHOANIKA WOO Primary Care Unavailable MOROCHOANIKA WOO Primary Care Unavailable MARIE NUÑEZ Attending Unavailable [place] HOUSING AND RESIDENCE LIFE DIRECTOR-THERAPEUTIC ACTIVITIES SERVICES WORKERAnika Primary Care Provid er Jerry HOUSING AND RESIDENCE LIFE DIRECTOR-THERAPEUTIC ACTIVITIES SERVICES WORKERTerese Primary Care Provider ANIKA MOROCHO Referring Unavailable ANIKA MOROCHO Primary Care Unavailable ANIKA MOROCHO Attending Unavailable ANIKA MOROCHO Attending Unavailable ANIKA MOROCHO Referring Unavailable ANIKA MOROCHO Primary Care Unavailable ANIKA MOROCHO Attending Unavailable ANIKA MOROCHO Referring Unavailable ANIKA MOROCHO Primary Care Unavailable ANIKA MOROCHO Attending Unavailable ANIKA MOROCHO Referring Unavailable ANIKA MOROCHO Primary Care Unavailable ANIKA MOROCHO Attending Unavailable ANIKA MOROCHO Referring Unavailable ANIKA MOROCHO Primary Care Unavailable TERESE EDWARDS Attending Unavailable TERESE EDWARDS Referring Unavailable TERESE EDWARDS Primary Care Unavailable MAXIMUS PEREZ Attending Unavailable MAXIMUS PEREZ Attending Unavailable MAXIMUS PEREZ Attending Unavailable Anika Mullins Unavailable Medications Current Medications MedicationDrug Class(es)DatesSig (Normalized)Sig (Original)acetaminophen 325 mg oral tablet (20 sources)Start: 11-01-2022 End: 14-99-9287zqlo 2 tablets by mouth every six hours as neededacetaminophen (Tylenol) 325 MG tablet TAKE 2 TABLETS (650MG) BY MOUTH EVERY 6 HOURS NEEDED FOR MINOR DISCOMFORT OR TEMPERATURE GREATER THAN 101 11/01/2022 ActiveStart: 57-40-4789rfvkhjkerudeh (Tylenol) 325 MG tablet 11/01/2022 Activealendronic acid 70 mg oral tablet (20 sources)BisphosphonateStart: 06-09-2019 End: 02-51-0057xsrxkgergbc (Fosamax) 70 MG tablet Take 70 mg by mouth 11/01/2022 ActiveAlendronate Sodium ActiveamLODIPine 10 mg oral tablet (20 sources)Dihydropyridine Calcium Channel BlockerStart: 06-09-2019 End: 16-41-5501etkb 1 tablet by mouth once dailyamLODIPine (Norvasc) 10 MG tablet Take 10 mg by mouth Daily 11/01/2022 ActiveNorvasc Activeamoxicillin 875 mg oral tablet (1 source)Penicillin-class AntibacterialStart: 46-11-3382rwtj 1 tablet by mouth every twelve hoursAmoxicillin 875 MG 1 tablet Orally every 12 hrs for 7 days at 8 am and 8 pm Dec, ActiveARIPiprazole 5 mg oral tablet (9 sources)Atypical AntipsychoticStart: 47-09-1347dqlk 5 mg by mouth once daily Aripiprazole Active 5 MG PO Daily June 09, 2019 12:00amaspirin 81 mg delayed release oral tablet (20 sources)Platelet Aggregation Inhibitor, Nonsteroidal Anti-inflammatory Drug Start: 11-01-2022 End: 93-69-9694cjjziof 81 MG EC tablet Take 81 mg by mouth 11/01/2022 Active Start: 03-02-3156ijco 81 mg by mouth once dailyAspirin Active 81 MG PO Daily June 09, 2019 12:00amAspirin 81 Activeatorvastatin 10 mg oral tablet (20 sources)HMG-CoA Reductase InhibitorStart: 06-09-2019 End: 95-37-8500ocdt 1 tablet by mouth once dailyatorvastatin (Lipitor) 10 MG tablet Take 10 mg by mouth Daily 11/01/2022 ActiveAtorvastatin Calcium Active carbamide peroxide 65 mg/ml otic solution (9 sources)Start: 29-02-2780Efaizmoom Peroxide (Murine Ear) 6.5 % Drops Active 5 DROPS EAR-BOTH Daily June 09, 2019 12:00amcarbamide peroxide (DEBROX/MURINE) 6.5 % otic solution Place 5 Drops in both ears 2 times a week. 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, without long-term current use of insulin ([facility]) SWISH AND SPIT 15 ML BY MOUTH TWICE DAILY *DO NOT SWALLOW* 946 mL 11 01/13/2024 12/07/2024 Discontinued (Reorder)Start: 78-37-8304Tfpovaymcrgoq Gluconate Active 15 ML BUCCAL Twice daily June 09, 2019 12:00amStart: 12-30-2017 End: 27-69-2791bhrw 15 mL by mouth twice dailychlorhexidine (PERIDEX) 0.12 % solution Indications: Decay, teeth , 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 473 mL 6 12/30/2017 01/13/2024 DiscontinuedChlorhexidine Gluconate Activecholecalciferol 0.05 mg oral capsule (20 sources)Vitamin DStart: 10-69-1371zlgu 1 capsule by mouth once in the morningcholecalciferol, vitamin D3, 2,000 units capsule Indications: Vitamin D deficiency Take 1 capsule (2,000 Units total) by mouth in the morning. 30 capsule 5 12/21/2024 ActiveStart: 10-26-2022 End: 46-93-5078pyyz 1 capsule by mouth once dailycholecalciferol (Vitamin D-3) 50 MCG (2000 UT) capsule Take 2,000 Units by mouth Daily 10/26/2022 ActiveStart: 10-26-2022 End: 69-71-1309jtiz 1 capsule by mouth once in the morningcholecalciferol, vitamin D3, 2,000 units capsule Indications: Vitamin D deficiency Take 1 capsule (2,000 Units total) by mouth in the morning. 30 each 11 10/26/2022 11/05/2023 Jipugaappkti05 hr dextromethorphan hydrobromide 30 mg / guaiFENesin 600 mg extended release oral tablet (1 source)Uncompetitive R-qayjgj-L-aspartate Receptor Antagonist, Sigma-1 AgonistStart: 16-69-1313hecx 1 tablet by mouth every twelve hoursMucinex DM 30- 600 MG 1 tablet as needed Orally every 12 hrs at 8 am and 8pm Dec, ActiveDulaglutide (Trulicity) 4.5 mg/0.5 mL pen injector (2 sources)Start: 87-37-3562Sowongjreoe (Trulicity) 4.5 mg/0.5 mL pen injector Active MG SUBCUT November 14, 2023 12:00amdulaglutide (TRULICITY) 4.5 mg/0.5 mL pen injector (11 sources)Start: 71-39-6999ndpcav 4.5 mg by subcutaneous injection every week dulaglutide (TRULICITY) 4.5 mg/0.5 mL pen injector Indications: 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) Inject 4.5 mg under the skin once a week. 2 mL 09/05/2023 ActiveStart: 09-05-2023 End: 86-35-4113gonvss 4.5 mg by subcutaneous injection every weekdulaglutide (TRULICITY) 4.5 mg/0.5 mL pen injector Indications: 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) Inject 4.5 mg under the skin once a week. 2 mL 09/05/2023 09/05/2023 Discontinued (Reorder)escitalopram 10 mg oral tablet (20 sources)Serotonin Reuptake InhibitorStart: 06-33-8501Ulxcwtxpssmi Oxalate Active MG PO November 14, 2023 12:00amStart: 99-84-5677qpeg 1 tablet by mouth in the morningescitalopram (Lexapro) 10 MG tablet Take 10 mg by mouth in the morning. 10/30/2022 ActiveEscitalopram Oxalate Activeeyelid cleanser combination 7 foam (20 sources)eyelid cleanser combination 7 foam Apply topically. mynor Lynn sun Activeeyelid cleanser combination 7 foam Apply topically. mynor Lynn sun 0 ActiveglipiZIDE (1 source)SulfonylureaglipiZIDE ActiveglipiZIDE 2.5 mg / metFORMIN hydrochloride 500 mg oral tablet (18 sources)Biguanide, SulfonylureaStart: 53-80-7580viqh 2 tablets by mouth once dailyGlipizide-Metformin Active 2 TAB PO Daily June 09, 2019 12:00am 0700 Start: 56-26-6564zbjw 1 tablet by mouth at bedtimeGlipizide-Metformin Active 1 TAB PO Bedtime June 09, 2019 12:00amguaiFENesin 20 mg/ml oral solution (20 sources)Start: 30-92-2214Nlwna Congestion Relief 100 MG/5ML liquid 11/01/2022 ActiveStart: 17-00-5048mwml 5 mL by mouth every six hours as needed for coughChest Congestion Relief 100 MG/5ML liquid TAKE 5 ML BY MOUTH EVERY 6 HOURS NEEDED FOR COUGH 11/01/2022 Activetake 5 mL by mouth every six hours as neededguaifenesin (ROBITUSSIN) 100 MG/5ML syrup Take 5 mL by mouth every 6 hours as needed. Activeammonium lactate 120 mg/ml topical lotion (20 sources)Start: 69-71-5503tvdmwvad lactate (Lac-Hydrin) 12 % lotion Apply topically 11/01/2022 ActiveStart: 09-21-9926odsyzvsq lactate (LAC-HYDRIN) 12 % lotion APPLY TOPICALLY TO DRY SKIN 2 TIMES DAILY NEEDED 225 g11 11/01/2022 Activelisinopril 5 mg oral tablet (20 sources)Angiotensin Converting Enzyme InhibitorStart: 06-09-2019 End: 33-52-7851nplk 1 tablet by mouth once dailylisinopril 5 MG tablet Take 5 mg by mouth Daily 11/01/2022 ActiveLisinopril Activeloperamide hydrochloride 2 mg oral capsule (20 sources)Opioid AgonistStart: 11-01-2022 End: 84-23-8158hhahjaijgz (Imodium) 2 MG capsule 2 mg 11/01/2022 Activetake 2 mg by mouth four times daily as neededLoperamide HCl (IMODIUM ORAL) Take 2 mg by mouth 4 times daily as needed. Viscef10 hr metFORMIN hydrochloride 500 mg extended release oral tablet (11 sources)BiguanideStart: 55-22-4800fvnl 1 tablet by mouth once daily at breakfastmetFORMIN XR (GLUCOPHAGE XR) 500 mg 24 hr tablet Indications: 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) Take 1 tablet (500 mg total) by mouth daily with breakfast. 30 tablet 11 06/17/2024 ActiveMounjaro 7.5 MG/0.5ML solution auto-injector (3 sources)Start: 45-22-2494Klhcnpmf 7.5 MG/0.5ML solution auto-injector 06/08/2024 Activemupirocin 0.02 mg/mg topical ointment (7 sources)RNA Synthetase Inhibitor Antibacterialmupirocin (BACTROBAN) 2 % ointment Apply 1 Dose topically 2 times daily. Apply to affected area twice daily . Activenirmatrelvir-ritonavir (PAXLOVID) tablets (1 source)Start: 11-15-2023 End: 72-62-9499pxua 2 tablets by mouth in the morningnirmatrelvir-ritonavir (PAXLOVID) tablets Indications: COVID-19 Take 2 tablets by mouth in the morning and 2 tablets before bedtime. Do all this for 5 days. HOLD ATORVASTATIN WHILE TAKING THIS MEDICATION. 20 tablet 11/15/2023 11/20/2023 Activenystatin 923475 unt/ml topical cream (2 sources)Polyene AntifungalStart: 48-52-7040Afkwkqxs Active 1 APPLIC TOPICAL Twice daily June 09, 2019 12:00amondansetron 4 mg disintegrating oral tablet (9 sources)Serotonin-3 Receptor AntagonistStart: 21-87-0598xmfm 4 mg by mouth every six hoursOndansetron Active 4 MG PO Q6H June 09, 2019 12:00am oseltamivir 75 mg oral capsule (2 sources)Neuraminidase InhibitorStart: 80-41-9172vovc 1 capsule by mouth twice dailyOseltamivir (Tamiflu) 75 mg capsule Active 75 MG PO Twice daily 10 June 09, 2019 12:45pmpioglitazone 30 mg oral tablet (11 sources)Peroxisome Proliferator Receptor alpha Agonist, Peroxisome Proliferator Receptor gamma Agonist, ThiazolidinedioneStart: 11-14-2023 Pioglitazone Active MG PO November 14, 2023 12:00amStart: 09-05-2023 End: 44-96-2217odlf 1 tablet by mouth in the morningpioglitazone (ACTOS) 30 mg tablet Indications: 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) Take 1 tablet (30 mg total) by mouth in the morning. At 8am. 30 tablet 11 09/05/2023 01/16/2024 Discontinued (Therapy completed)predniSONE 10 mg oral tablet (3 sources)Start: 01-12-2024 End: 05-23-2034fyon 3 tablets by mouth once daily, then take 2 tablets by mouth once daily, then take 1 tablet by mouth once dailypredniSONE (DELTASONE) 10 mg tablet Take 3 tablets (30 mg total) by mouth daily for 3 days, THEN 2 tablets (20 mg total) daily for 3 days, THEN 1 tablet (10 mg total) daily for 3 days. 18 tablet 01/12/2024 01/21/2024 ActiverisperiDONE 0.5 mg oral tablet (20 sources)Atypical AntipsychoticStart: 71-21-1477Ljlhhuuezqu Active MG PO November 14, 2023 12:00amStart: 16-58-9371xzbh 1 tablet by mouth in the morning risperiDONE (RisperDAL) 0.5 MG tablet Take 0.5 mg by mouth in the morning and 0.5 mg in the evening. 10/30/2022 Activetake 1 tablet by mouth twice daily risperiDONE (RISPERDAL) 0.25 MG tablet Take 0.25 mg by mouth 2 times daily. ActiverisperiDONE ActiveSITagliptin 100 mg oral tablet (20 sources)Dipeptidyl Peptidase 4 InhibitorStart: 07-08-2023 End: 16-39-2510rfnx 1 tablet by mouth once daily in the morningSITagliptin phosphate (JANUVIA) 100 mg tablet Indications: 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) TAKE 1 TABLET BY MOUTH EVERY MORNING 30 tablet 11 05/27/2024 Activetirzepatide (MOUNJARO) 10 mg/0.5 mL pen injector (11 sources)Start: 54-62-8292fobovp 10 mg by subcutaneous injection every week tirzepatide (MOUNJARO) 10 mg/0.5 mL pen injector Indications: 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) Inject 10 mg under the skin once a week. 2 mL 11 06/17/2024 Activetolnaftate 0.01 mg/mg topical powder (20 sources)Start: 97-68-5511elaumsdrmk (Tinactin) 1 % powder if needed 11/01/2022 ActiveStart: 11-01-2022 End: 30-17-7222igfjspdmkr (TINACTIN) 1 % powder APPLY TOPICALLY TO AFFECTED AREA OF EXCORIATION UNDER BREAST 2 TIMES DAILY NEEDED 45 g 11 02/04/2024 Active End: 72-88-3261tvywabpohw (TINACTIN) 1 % cream Apply 1 Dose topically in the morning and 1 Dose before bedtime. 01/16/2024 Discontinued (Therapy completed) Trulicity 3 MG/0.5ML solution pen-injector (6 sources)Start: 14-46-3506lmsklr 3 mg by subcutaneous injection every week Trulicity 3 MG/0.5ML solution pen-injector Inject 3 mg under the skin 1 (one) time per week 03/14/2023 Active Completed/Discontinued Medications MedicationDrug Class(es)DatesSig (Normalized)Sig (Original)calcium carbonate 1250 mg / cholecalciferol 0.01 mg oral tablet (2 sources)Vitamin DStart: 06-09-2019 End: 75-40-3627mmxo 1 tablet by mouth three times dailyCalcium Carbonate-Vitamin D3 (Oystercal-D) 500 mg(1,250mg) -400 unit Tablet Discontinued 1 TAB PO Three times daily June 09, 2019 12:00am November 14, 2023 12:26pm0.5 ml dulaglutide 3 mg/ml auto-injector (10 sources)GLP-1 Receptor AgonistStart: 06-09-2019 End: 03-28-1681Beblmzuwmhm (Trulicity) 1.5 mg/0.5 mL Pen Injector Discontinued 1.5 MG SUBCUT every week June 09, 2019 12:00am November 14, 2023 12:26pm Trulicity Activedulaglutide (TRULICITY) 3 mg/0.5 mL pen injector (9 sources)Start: 03-14-2023 End: 57-20-2688yewcsr 3 mg by subcutaneous injection every weekdulaglutide (TRULICITY) 3 mg/0.5 mL pen injector Indications: 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) Inject 3 mg under the skin once a week. 2 mL 11 03/14/2023 09/05/2023 DiscontinuedStart: 43-87-1896rmjdac 3 mg by subcutaneous injection every weekdulaglutide (TRULICITY) 3 mg/0.5 mL pen injector Indications: 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) Inject 3 mg under the skin once a week. 2 mL 11 03/14/2023 Activedulaglutide 4.5 mg/0.5 mL pen injector (1 source)Start: 11-14-2023 End: 19-78-3276xjuwkbqlind 4.5 mg/0.5 mL pen injector 11/14/2023 01/16/2024 Discontinued (Duplicate Listing)loratadine 10 mg oral tablet (3 sources)Start: 01-12-2024 End: 46-79-1820dfax 1 tablet by mouth in the morningloratadine (CLARITIN) 10 mg tablet Take 1 tablet (10 mg total) by mouth in the morning for 10 doses. 10 tablet 01/12/2024 01/16/2024 Discontinued (Therapy completed)tirzepatide (MOUNJARO) 7.5 mg/0.5 mL pen injector (4 sources)Start: 03-10-2024 End: 44-92-0434nqfnsd 7.5 mg by subcutaneous injection every weektirzepatide (MOUNJARO) 7.5 mg/0.5 mL pen injector Indications: 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) Inject 7.5 mg under the skin once a week. 2 mL 11 03/10/2024 06/17/2024 Discontinued (Therapy completed)Start: 81-42-5870drpyhw 7.5 mg by subcutaneous injection every weektirzepatide (MOUNJARO) 7.5 mg/0.5 mL pen injector Indications: 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) Inject 7.5 mg under the skin once a week. 2 mL 11 03/10/2024 Active Problems Active Problems Problem ClassificationProblemDateDocumented DateEpisodic/ChronicBlindness and vision defects (1 source)Unspecified visual loss; Translations: [UNSPECIFIED VISUAL LOSS]Onset: 92-75-8677UhaxawbNqdbmiyfpdqtz disorders (20 sources)Unspecified intellectual disabilities; Translations: [Intellectual disability]Onset: 129405-45-8567EqgughdKbjlwifp mellitus with complications (20 sources)Type 2 diabetes mellitus with other specified complication; Translations: [Mixed hyperlipidemia dueto type 2 diabetes mellitus]Onset: 46-59-6772IqkimdiEsfvawck mellitus without complication (20 sources)Diabetic on non-insulin injectable medication; Translations: [Type 2 diabetes mellitus without complications]Onset: 529253-60-5142Ybjkrkk Disorders of lipid metabolism (2 sources)Mixed hyperlipidemia; Translations: [Mixed hyperlipidemia]Onset: 78-29-1716UryqqidWxnzpnrtm hypertension (20 sources)Essential (primary) hypertension; Translations: [Essential hypertension]Onset: 739793-08-0231UjpfhmmSrcmltulxohoa symptoms and ill- defined conditions (1 source)Nocturnal enuresis; Translations: [Nocturnal enuresis]06-07-2024 ChronicImpulse control disorders, NEC (20 sources)Impulse control disorder; Translations: [Impulse disorder, unspecified]Onset: 952816-01-7444IgcqqkqJicdfpqxl (2 sources)Influenza; Translations: [Influenza due to unidentified influenza virus with other respiratory manifestations]10-94-0541AyvyauffQftccxo (3 sources)Onychomycosis due to dermatophyte ; Translations: [Tinea unguium] 59-34-6944RlvinwfhCesagcwxzux deficiencies (7 sources)Vitamin D deficiency, unspecified; Translations: [Vitamin D deficiency]Onset: 516002-52-2984TpydqecGkedo and ill-defined heart disease (20 sources)Disorder of cardiac ventricle; Translations: [Other ill-defined heart diseases]Onset: 385421-71-0540KsgpwknPtcfv connective tissue disease (6 sources)Pain in toe; Translations: [Pain in right toe(s)]28-83-5361Rbhrdfzs Other diseases of bladder and urethra (1 source)Spasm of bladder; Translations: [Other specified disorders of bladder] 98-45-1611JgofezfFaehn nutritional; endocrine; and metabolic disorders (20 sources)Hypercalcemia; Translations: [Hypercalcemia]Onset: 05-11-2019 45-83-2326KgaupxyRlwtn skin disorders (3 sources)Dystrophia unguium; Translations: [Nail dystrophy]24-78-2134Whyxahom Other skin disorders (1 source)Ingrowing nail; Translations: [Ingrowing nail]70-71-6564XjjqddjgBltisb media and related conditions (1 source)Otitis media, unspecified, right earEpisodicUnclassified (1 source)Long-term (current) use of injectable non-insulin antidiabetic drugs; Translations: [Long-term (current) use of injectable non-insulin antidiabetic drugs]Onset: 90-56-4673Fwwoopafbufr (1 source)Establish careOnset: 90-38-5394Ydezr infection (2 sources)COVID-19; Translations: [Other specified viral infection]11-14-2023 Episodic Past or Other Problems Problem ClassificationProblemDateDocumented DateEpisodic/ChronicDisorders of teeth and jaw (20 sources)Dental caries; Translations: [Dental caries, unspecified]Onset: 35-09-8950XhusuokfR Codes: Struck by; against (1 source)Striking against other object with subsequent fall, initial encounter; Translations: [VENKAT [place] OTH OBJ SBSQT FALL INIT]Onset: 63-07-7024Zkyfrxrq Heart valve disorders (20 sources)Heart murmur; Translations: [Cardiac murmur, unspecified]Onset: 496933-19-4751QgtcrbzaKmijvlyynbpoc and screening for infectious disease (5 sources)Contact with and (suspected) exposure to other viral communicable diseases; Translations: [Patient encounter status]Onset: 29-06-8956LxascpqbHhxs disorders (20 sources)Mood disordersOnset: 01-16-2024 Resolved: Other aftercare (1 source)legal support assistant (current) use of aspirin; Translations: [CODING AUDITOR CURRENT USE OF ASPIRIN]Onset: 24-11-0320FabhoborUyhjf aftercare (1 source)Other chcf (current) drug therapy; Translations: [OTH CODING AUDITOR CURRENT DRUG THERAPY]Onset: 52-60-9970OfcdorgqIgvxo aftercare (1 source)legal support assistant (current) use of oral hypoglycemic drugs; Translations: [CODING AUDITOR USE ORAL HYPOGLYCEMIC DX]Onset: 23-28-1971ChzomxlqBalhm ear and sense organ disorders (20 sources)Impacted cerumen of bilateral ears; Translations: [Impacted cerumen, bilateral]Onset: 12-26-2016 Resolved: 131690-25-2305OacqerbrCybzt injuries and conditions due to external causes (1 source)Angioedema; Translations: [Angioneurotic edema, subsequent encounter] 03-06-6332ZxexwccuVcbyi injuries and conditions due to external causes (1 source)Angioneurotic edema, initial encounter; Translations: [Angioneurotic edema, initial encounter]Onset: 51-07-1712MyaisljcKfyaj injuries and conditions due to external causes (1 source)Angioneurotic edema, subsequent encounter; Translations: [Angioneurotic edema, subsequent encounter]Onset: 72-64-1878WriyrafrTfijn liver diseases (20 sources)ALT (SGPT) level raised; Translations: [Elevated ALT measurement] Onset: 017712-11-1392ZumyeryfPsalb screening for suspected conditions (not mental disorders or infectious disease) (1 source)Patient encounter status; Translations: [Encounter for screening mammogram for malignant neoplasm of breast]05-28-8083QislefokItehs skin disorders (2 sources)Facial swellingOnset: 19-04-4478UffogrnwPhnojufe codes; unclassified (20 sources)Localized edema; Translations: [Localized edema]Onset: 06-02-2021 39-60-8794GopscjigCthboyntsha injury; contusion (4 sources)Contusion of left knee, initial encounter; Translations: [CONTUSION LEFT KNEE INITIAL ENC]Onset: 63-77-8841EnbzmuhjDooxudejdcqm (20 sources)Onset: 01-16-2024 Resolved: Viral infection (1 source)COVID-19 Results Test NameValueInterpretationReference RangeFacilityPOCT Hemoglobin A1con 53-50-6750QvG5f (Bld) [Mass fraction]7.7 %Abnormal4 - 7 %[facility] Interpretation and review of laboratory resultsAbnoThedaCare Regional Medical Center–NeenahCBC WITH AUTO DIFFERENTIALon 83-02-1870KJOOCMTEN ABSOLUTE COUNT (10*3/UL) BY AUTOMATED COUNT0.1 10*3/uLNormal0.0-0.2PHol[facility] Ambulatory PPGComment on above:Performed By: #### CBCA #### [facility] ([facility]) [address] [place] [address] VIRBASOPHILS RELATIVE PERCENT BY AUTOMATED COUNT0.7 %Normal [facility] Ambulatory PPGComment on above:Performed By: #### CBCA #### [facility] ([facility]) [address] [place] [address] VIRCELLAVISION DIFFERENTIAL TYPEAUTOMATED DIFFERENTIALNormal [facility] Ambulatory PPGComment on above:Performed By: #### CBCA #### [facility] ([facility]) [address] [place] [address] VIREosinophils (Bld) [#/Vol]0.2 10*3/uLNormal0.0-0.4[facility]ulatory PPGComment on above:Performed By: #### CBCA #### [facility] ([facility]) [address] [place] [address] VIREOSINOPHILS RELATIVE PERCENT BY AUTOMATED COUNT1.7 %Normal [facility] Ambulatory PPGComment on above:Performed By: #### CBCA #### [facility] ([facility]) [address] [place] [address] VIRErythrocyte distribution width (RBC) [Ratio]14.1 %Normal 11.5-15[facility] Ambulatory PPGComment on above:Performed By: #### CBCA #### [facility] ([facility]) [address] [place] [address] VIRHematocrit (Bld) [Volume fraction]41.8 %Ihrhql62-05YpoAadoho [facility] Ambulatory PPGComment on above:Performed By: #### CBCA #### [facility] ([facility]) [address] [place] [address] VIRHemoglobin (Bld) [Mass/Vol]14.4 g/uCCirkxt83.7-15.5[facility] Ambulatory PPGComment on above:Performed By: #### CBCA #### [facility] ([facility]) [address] [place] [address] VIRLYMPHOCYTES ABSOLUTE COUNT (10*3/UL) BY AUTOMATED COUNT2.7 10*3/uLNormal1.0-3.5PHol[facility] Ambulatory PPGComment on above:Performed By: #### CBCA #### [facility] ([facility]) [address] [place] [address] VIRLYMPHOCYTES RELATIVE PERCENT BY AUTOMATED COUNT30.2 %Normal [facility] Ambulatory PPGComment on above:Performed By: #### CBCA #### [facility] ([facility]) [address] [place] [address] VIRMCH (RBC) [Entitic mass]30.9 ndJhtvgj62-74QnmCttcvw Hospital Ambulatory PPGComment on above:Performed By: #### CBCA #### [facility] ([facility]) [address] [place] [address] VIRMCHC (RBC) [Mass/Vol]34.5 g/zZPwjtoz27-33HvnIcsjtb Hospital Ambulatory PPGComment on above:Performed By: #### CBCA #### [facility] ([facility]) [address] [place] [address] VIRMCV (RBC) [Entitic vol]90 iGPqtpkl56-763UedQwwsqw Hospital Ambulatory PPGComment on above:Performed By: #### CBCA #### [facility] ([facility]) [address] [place] [address] VIRMONOCYTES ABSOLUTE COUNT (10*3/UL) BY AUTOMATED COUNT0.7 10*3/uLNormal0.0-0.9[facility] Ambulatory PPGComment on above:Performed By: #### CBCA #### [facility] ([facility]) [address] [place] [address] VIRMONOCYTES RELATIVE PERCENT BY AUTOMATED COUNT7.8 %Normal [facility] Ambulatory PPGComment on above:Performed By: #### CBCA #### [facility] ([facility]) [address] [place] [address] VIRNEUTROPHILS ABSOLUTE COUNT BY AUTOMATED COUNT5.2 10*3/uL Normal1.5-6.6[facility] Ambulatory PPGComment on above:Performed By: #### CBCA #### [facility] ([facility]) [address] [place] [address] VIRNEUTROPHILS RELATIVE PERCENT BY AUTOMATED COUNT59.6 %Normal [facility] Ambulatory PPGComment on above:Performed By: #### CBCA #### [facility] ([facility]) [address] [place] [address] VIRPlatelet mean volume (Bld) [Entitic vol]8.4 fLNormal7-12 [facility] Ambulatory PPGComment on above:Performed By: #### CBCA #### [facility] ([facility]) [address] [place] [address] VIRPlatelets (Bld) [#/Vol]257 10*3/fVUrmohr590-677RetPlxbvb Hospital Ambulatory PPGComment on above:Performed By: #### CBCA #### [facility] ([facility]) [address] [place] [address] VIRRBC COUNT4.67 X10E12/LNormal3.8-5.2PHol[facility] Ambulatory PPGComment on above:Performed By: #### CBCA #### [facility] ([facility]) [address] [place] [address] VIRWBC (Bld) [#/Vol]8.8 10*3/uLNormal4-11[facility] Ambulatory PPGComment on above:Performed By: #### CBCA #### [facility] ([facility]) [address] [place] [address] VIRCOMPREHENSIVE METABOLIC PANELon 08-24-5722Xrrpanm [Mass/Vol] 4.6 g/dLNormal3.2-5.3PHol[facility] Ambulatory PPGComment on above:Performed By: #### CMP #### [facility] ([facility]) [address] [place] [address] VIRALP [Catalytic activity/Vol]75 U/AJphuvt40-147GhiMoucjn Hospital Ambulatory PPGComment on above:Performed By: #### CMP #### [facility] ([facility]) [address] [place] [address] VIRALT [Catalytic activity/Vol]26 U/LNormal<=31PHol[facility] Ambulatory PPGComment on above:Performed By: #### CMP #### [facility] ([facility]) [address] [place] [address] VIRAnion gap [Moles/Vol]10 mmol/LNormal5-15[facility] Ambulatory PPGComment on above:Performed By: #### CMP #### [facility] ([facility]) [address] [place] [address] VIRAST [Catalytic activity/Vol]17 U/LNormal<=41[facility] Ambulatory PPGComment on above:Performed By: #### CMP #### [facility] ([facility]) [address] [place] [address] VIRBilirubin [Mass/Vol]0.5 mg/dLNormal0.3-1.2PHol[facility] Ambulatory PPGComment on above:Performed By: #### CMP #### [facility] ([facility]) [address] [place] [address] VIRCalcium [Mass/Vol]10.1 mg/dLNormal8.5-10.5PHol[facility] Ambulatory PPGComment on above:Performed By: #### CMP #### [facility] ([facility]) [address] [place] [address] VIRChloride [Moles/Vol]100 mmol/YEigatn97-448BluQsfpzb Hospital Ambulatory PPGComment on above:Performed By: #### CMP #### [facility] ([facility]) [address] [place] [address] VIRCO2 [Moles/Vol]27 mmol/JLdgwqf14-51SzyKtmpsj Hospital Ambulatory PPGComment on above:Performed By: #### CMP #### [facility] ([facility]) [address] [place] [address] VIRCreatinine [Mass/Vol]0.67 mg/dLNormal0.40-1.00[facility] Ambulatory PPGComment on above:Result Comment: METHOD TRACEABLE TO IDMS STANDARDPerformed By: #### CMP #### [facility] ([facility]) [address] [place] [address] VIREGFR (CKD-EPI) NON-RACE DEPENDENT>^90Normal>=60[facility] Ambulatory PPGComment on above:Result Comment: Reported eGFR is based on the CKD-EPI 2020 equation that does not use a race coefficient.Performed By: #### CMP #### [facility] ([facility]) [address] [place] [address] VIRGlucose [Mass/Vol]173 mg/gMEdgn00-04GrvHlssrf Hospital Ambulatory PPGComment on above:Performed By: #### CMP #### [facility] ([facility]) [address] [place] [address] VIRPotassium [Moles/Vol]4.1 mmol/LNormal3.5-5.0[facility] Ambulatory PPGComment on above:Performed By: #### CMP #### [facility] ([facility]) [address] [place] [address] VIRProtein [Mass/Vol]8.5 g/dLHigh6.0-8.0[facility] Ambulatory PPGComment on above:Performed By: #### CMP #### [facility] ([facility]) [address] [place] [address] VIRSodium [Moles/Vol]137 mmol/SIanioo377-047FldWxlmbi Hospital Ambulatory PPGComment on above:Performed By: #### CMP #### [facility] ([facility]) [address] [place] [address] VIRUrea nitrogen [Mass/Vol]15 mg/dLNormal5-27[facility] Ambulatory PPGComment on above:Performed By: #### CMP #### [facility] ([facility]) [address] [place] [address] VIRPOCT Hemoglobin M6jLqhehhe By: Michelle Kahn on 09-17-2024 HbA1c (Bld) [Mass fraction]8 %Abnormal4 - 7 %[facility] Interpretation and review of laboratory resultsAbnoalProHealth Waukesha Memorial Hospital SystemTSHon 51-80-8822RAS4.77 uIU/mLNormal0.49-4.67[facility] Ambulatory PPGComment on above:Performed By: #### TSH #### [facility] ([facility]) [address] [place] [address] VIRVITAMIN D 25 HYDROXYon 71-09-0068FXCISAM D 25 HYD TOT36.0 ng/eGCwuysw98.0-100.0[facility] Ambulatory PPGComment on above:Order Comment: Vitamin D status 25 [place] Vitamin D Deficiency <20 ng/mL Insufficiency 20-29 ng/mL Sufficiency 30-100 ng/mL Toxicity >100 ng/mL NOTE: A pediatric reference range has not been established by the marzipan maker of this kit. The [place] [employer] recommends a Vitamin D level of = or >20ng/mL in infants and children.Performed By: #### VITD #### [facility] ([facility]) [address] [place] [address] VIRPOCT Hemoglobin Y0rPgnqare By: Nia Merino on 06-17-2024 HbA1c (Bld) [Mass fraction]10.3 %Abnormal4 - 7 %[facility] Interpretation and review of laboratory resultsAbnoThedaCare Regional Medical Center–NeenahMAMM SCREENING BILATERAL W CADon 31-13-8826KNMD SCREENING BILATERAL W CADMAMM SCREENING BILATERAL W CAD JOSE JHA 1950 [id number] EXAM: MAMM SCREENING BILATERAL W CAD, 03/26/2024 [...] 03/26/2024 2:11 PM 1 c MAMM 1 YRNormalProChristus Good Shepherd Medical Center – MarshallCBC AND AUTO DIFFon 23-08-2595PKIUEJHW BASOPHIL0.0 X10E9/LNormal0.0-0.2PProMedica Toledo HospitalComment on above: Performed By: #### CMP CBCA #### [facility] ([id number]) [address] [place] [address]JHUSOTJP NEUTROPHIL4.5 X10E9/LNormal1.5-6.6Sal[facility] City HospitalComment on above:Performed By: #### CMP, CBCA #### [facility] ([id number]) [address] [place] [address]Gdwtoujxw/100 WBC (Bld)0.5 %[facility] Comment on above:Performed By: #### CMP, CBCA #### [facility] ([id number]) [address] [place] [address]Weedhbxkpby (Bld) [#/Vol]0.2 10*3/uLNormal0.0-0.4[facility] City HospitalComment on above:Performed By: #### CMP, CBCA #### [facility] ([id number]) [address] [place] [address]Ihgwlqohiwd/100 WBC (Bld)1.9 %[facility] Comment on above:Performed By: #### CMP, CBCA #### [facility] ([id number]) [address] [place] [address]Ufskvkfvoyb distribution width (RBC) [Ratio]15.3 %High11.5-15.0 [facility]ist Medical CenterComment on above:Performed By: #### CMP, CBCA #### [facility] ([id number]) [address] [place] [address]Ofsvpqehyv (Bld) [Volume fraction]34.4 %Lsz86-69XiiZxkxgaChristus Good Shepherd Medical Center – MarshallComment on above:Performed By: #### CMP, CBCA #### [facility] ([id number]) [address] [place] [address]Vcysxjmkxx (Bld) [Mass/Vol]11.3 g/dLLow11.7-15.5PProMedica Toledo HospitalComment on above:Performed By: #### CMP, CBCA #### [facility] ([id number]) [address] [place] [address]Ckoelyphfna (Bld) [#/Vol]2.5 10*3/uLNormal1.0-3.5PProMedica Toledo HospitalComment on above:Performed By: #### CMP, CBCA #### [facility] ([id number]) [address] [place] [address]Cxiakzzugri/100 WBC (Bld)31.3 %NormalSalem City Hospital Comment on above:Performed By: #### CMP, CBCA #### [facility] ([id number]) [address] [place] [address]SUE (RBC) [Entitic mass]31.2 tgPdhiuj65-26EeuUyioqcSalem City HospitalComment on above:Performed By: #### CMP, CBCA #### [facility] ([id number]) [address] [place] [address], [place] [address]NDIV (RBC) [Mass/Vol]32.8 g/aSAycgae34-99DjpEfzvlhChristus Good Shepherd Medical Center – MarshallComment on above:Performed By: #### CMP, CBCA #### [facility] ([id number]) [address] [place] [address]EOQ (RBC) [Entitic vol]95 hTJyiter54-048JtpAbphkgSalem City HospitalComment on above:Performed By: #### CMP, CBCA #### [facility] ([id number]) [address] [place] [address]85[address]Bwbcxrwgi (Bld) [#/Vol]0.9 10*3/uLNormal0-0.9[facility] City HospitalComuniversity of michigan health on above:Performed By: #### CMP, CBCA #### [facility] ([id number]) [address] [place] [address]Zmrblozhe/100 WBC (Bld)11.4 %[facility] Comment on above:Performed By: #### CMP, CBCA #### [facility] ([id number]) [address] [place] [address]Andlwxxvluq/100 WBC (Bld)54.9 %[facility] Comment on above:Performed By: #### CMP, CBCA #### [facility] ([id number]) [address] [place] [address]Djwzrkqp mean volume (Bld) [Entitic vol]8.6 fLNormal7-12 [facility] HospitalComuniversity of michigan health on above:Performed By: #### CMP, CBCA #### [facility] ([id number]) [address] [place] [address]Tmrmaefim (Bld) [#/Vol]197 10*3/cWRemsaa613-435OtjSiqgbq [facility]remont HospitalComment on above:Performed By: #### CMP, CBCA #### [facility] ([id number]) [address] [place] [address]FWD COUNT3.61 X10E12/LLow3.80-5.20[facility] Comment on above:Performed By: #### PASCUAL, CBCA #### [facility] ([id number]) [address] [place] [address]FIA (Bld) [#/Vol]8.1 10*3/uLNormal4.0-11.0ProChristus Good Shepherd Medical Center – MarshallComment on above:Performed By: #### CMP, CBCA #### [facility] ([id number]) [address] [place] [address]WVYHCDSHSBROO METABOLIC PANELon 06-11-0200Iwtsypg [Mass/Vol]4.1 g/dLNormal3.2-5.3PProMedica Toledo HospitalComment on above:Performed By: #### PASCUAL, CBCA #### [facility] ([id number]) [address] [place] [address], [place] [address]EGL [Catalytic activity/Vol]67 U/AHczqfc23-176CxrAelufbChristus Good Shepherd Medical Center – MarshallComment on above:Performed By: #### PASCUAL, CBCA #### [facility] ([id number]) [address] [place] [address], [place] [address]RJG [Catalytic activity/Vol]23 U/LNormal0-31PProMedica Toledo HospitalComment on above:Performed By: #### CMP, CBCA #### [facility] ([id number]) [address] [place] [address], [place] [address]Egodo gap [Moles/Vol]9 mmol/LNormal5-15ProChristus [facility] Shepherd Medical Center – MarshallComment on above:Performed By: #### CMP, CBCA #### [facility] ([id number]) [address] [place] [address], [place] [address]PRO [Catalytic activity/Vol]23 U/LNormal0-41ProChristus [facility] Shepherd Medical Center – MarshallComment on above:Performed By: #### CMP, CBCA #### [facility] ([id number]) [address] [place] [address], [place] [address]Sttgqdyti [Mass/Vol]0.7 mg/dLNormal0.3-1.2PProMedica Toledo HospitalComment on above:Performed By: #### CMP, CBCA #### [facility] ([id number]) [address] [place] [address], [place] [address]Djnouhr [Mass/Vol]8.9 mg/dLNormal8.5-10.5PProMedica Toledo HospitalComment on above:Performed By: #### PASCUAL, CBCA #### [facility] ([id number]) [address] [place] [address], [place] [address]Ljihiwmy [Moles/Vol]102 mmol/XCnesfu85-840IucRxmvmkChristus Good Shepherd Medical Center – MarshallComment on above:Performed By: #### PASCUAL, CBCA #### [facility] ([id number]) [address] [place] [address], [place] [address]CP7 [Moles/Vol]26 mmol/OXiubvr36-28XuoKnbhclProMedica Toledo Hospital Comment on above:Performed By: #### PASCUAL, CBCA #### [facility] ([id number]) [address] [place] [address], [place] [address]Jvbjkjsqyn [Mass/Vol]0.67 mg/dLNormal0.40-1.00ProChristus Good Shepherd Medical Center – MarshallComment on above:Result Comment: METHOD TRACEABLE TO IDMS STANDARD Performed By: #### PASCUAL, CBCA #### [facility] ([id number]) [address] [place] [address], [place] [address]yAVZ (CKD-EPI) NON-RACE DEPENDENT>90Normal>59ProChristus Good Shepherd Medical Center – MarshallComment on above:Result Comment: Reported eGFR is based on the CKD-EPI 2020 equation that does not use a race coefficient.Performed By: #### CMP, CBCA #### [facility] ([id number]) [address] [place] [address], [place] [address]Grlcvag [Mass/Vol]200 mg/gXSsai62-30BvfFankmsSalem City Hospital Comment on above:Performed By: #### PASCUAL CBCA #### [facility] ([id number]) [address] [place] [address], [place] [address]Ueviaqndp [Moles/Vol]4.4 mmol/LNormal3.5-5.0ProChristus [facility] Shepherd Medical Center – MarshallComment on above:Performed By: #### CMP, CBCA #### [facility] ([id number]) [address] [place] [address], [place] [address]Bvgmnun [Mass/Vol]8.1 g/dLHigh6.0-8.0[facility] Comment on above:Performed By: #### PASCUAL, CBCA #### [facility] ([id number]) [address] [place] [address], [place] [address]Dcrubv [Moles/Vol]137 mmol/BEvfxjk260-953UtpUnuaft [facility]remont HospitalComment on above:Performed By: #### PASCUAL, CBCA #### [facility] ([id number]) [address] [place] [address]Qloa nitrogen [Mass/Vol]24 mg/dLNormal5-27ProChristus Good Shepherd Medical Center – MarshallComment on above:Performed By: #### CMP, CBCA #### [facility] ([id number]) [address] [place] [address], [place] [address]CBLM Hemoglobin A1con 01-26-2932NjN4z (Bld) [Mass fraction]6.3 %4 - 7 %[facility] HospitalRespiratory specimen 2019 novel coronavirus RNA detection by probe and target amplifion 11-14-2023 SARS-CoV-2 (COVID-19) RNA MACRINA+probe Ql (Resp)PositiveHarrison Community HospitalCBC AND AUTO DIFFon 67-71-8675Zlzqwwqqa/100 WBC (Bld)0.3 %NormalProOhiohealth Van Wert Hospital SystemComment on above:Performed By: #### CBCKathy, CMP, 3016-3, 62973-7, HA1C #### [facility] ([id number]) [address], [address] [place], [place] [address]Azyzelpfpai (Bld) [#/Vol]0.1 10*3/uLNormal0.0-0.4ProOhiohealth Van Wert Hospital SystemComment on above:Performed By: #### CBCA, CMP, 3016-3, 60408-2, HA1C #### [facility] ([id number]) [address], [facility] [address] [place], [place] [address]Pcdesdgtsda/100 WBC (Bld)1.2 %NormalProOhiohealth Van Wert Hospital System Comment on above:Performed By: #### CBCA, CMP, 3016-3, 92913-4, HA1C #### [facility] ([id number]) [address], [facility] [address] [place], [place] [address]Cmbrwjyfpun distribution width (RBC) [Ratio]13.6 %Normal 11.5-15.0ProOhiohealth Van Wert Hospital SystemComment on above:Performed By: #### CBCKathy, CMP, 3016-3, 98774-2, HA1C #### [facility] ([id number]) [address] [address] [place], [place] [address]Mxlhhmmyib (Bld) [Volume fraction]39.7 %[place]21-16VegFdfgrg Health SystemComment on above:Performed By: #### CBCA, CMP, 3016-3, 33515-8, HA1C #### [facility] ([id number]) [address] [address] [place], [place] [address]Ygqhiodxpc (Bld) [Mass/Vol]13.6 g/xLCphuow51.7-15.5Pro[facility] SystemComment on above:Performed By: #### CBCA, CMP, 3016-3, 94386-3, HA1C #### [facility] ([id number]) [address], [address] [place], [place] [address]Eqkypzksgvj (Bld) [#/Vol]2.7 10*3/uLNormal1.0-3.5PAdena Pike Medical CenterComment on above:Performed By: #### CBCA, CMP, 3016-3, 93937-8, HA1C #### [facility] ([id number]) [address], [address] [place], [place] [address]Zzonwyrzdpi/100 WBC (Bld)33.0 %NormalBlanchard Valley Health System Comment on above:Performed By: #### CBCA, CMP, 3016-3, 96144-4, HA1C #### [facility] ([id number]) [address], [address] [place], [place] [address]RXW (RBC) [Entitic mass]31.8 scEvihyc07-38ZodMsylht Health SystemComment on above:Performed By: #### CBCA, CMP, 3016-3, 61908-8, HA1C #### [facility] ([id number]) [address], [address] [place], [place] [address]WAEZ (RBC) [Mass/Vol]34.3 g/xLAlqqyj67-29JvyOkqidxBlanchard Valley Health System Comment on above:Performed By: #### CBCA, CMP, 3016-3, 17503-1, HA1C #### [facility] ([id number]) [address], [address] [place], [place] [address]PBJ (RBC) [Entitic vol]93 aYFocsbd19-486BqbDvtmrs Health System Comment on above:Performed By: #### CBCA, CMP, 3016-3, 61596-8, HA1C #### [facility] ([id number]) [address], [address] [place], [place] [address]Yboibslpt (Bld) [#/Vol]0.5 10*3/uLNormal0-0.9[facility] SystemComment on above:Performed By: #### CBCA, CMP, 3016-3, 90626-0, HA1C #### [facility] ([id number]) [address], [address] [place], [place] [address]Qyabilfwq/100 WBC (Bld)6.7 %NormalProOhiohealth Van Wert Hospital SystemComment on above:Performed By: #### CBCA, CMP, 3016-3, 58770-0, HA1C #### [facility] ([id number]) [address], [address] [place], [place] [address]Krjnztkklos/100 WBC (Bld)58.8 %NormalTrinity Health System System Comment on above:Performed By: #### CBCA, CMP, 3016-3, 45329-9, HA1C #### [facility] ([id number]) [address], [address] [place], [place] [address]Xdqmwjtq mean volume (Bld) [Entitic vol]8.7 fLNormal7-12 [facility] SystemComment on above:Performed By: #### CBCA, CMP, 3016-3, 00950-4, HA1C #### [facility] ([id number]) [address], [address] [place], [place] [address]Eztdnlbgr (Bld) [#/Vol]248 10*3/iYRppihl992-748GnxKvtwsw Health SystemComment on above:Performed By: #### CBCA, CMP, 3016-3, 06489-7, HA1C #### [facility] ([id number]) [address], [address] [place], [place] [address]QLWIOWLX BASOPHIL0.0 X10E9/LNormal0.0-0.2Pro[facility] Sanborn HospitalComment on above:Performed By: #### CBCA, CMP, 3016-3, 16230-1, HA1C #### [facility] ([id number]) [address], [address] [place], [place] [address]QMQBHAYK NEUTROPHIL4.8 X10E9/LNormal1.5-6.6ProMercer County Community HospitalComment on above:Performed By: #### PASCUAL ESTRELLA, 3016-3, 58615-1, HA1C #### [facility] ([id number]) [address], [address] [address]YPC COUNT4.28 X10E12/LNormal3.80-5.20ProChildren[facility] Comment on above:Performed By: #### PASCUAL ESTRELLA, 3016-3, 22833-1, HA1C #### [facility] ([id number]) [address] [address]XFY (Bld) [#/Vol]8.1 10*3/uLNormal4.0-11.0ProMercer County Community HospitalComment on above:Performed By: #### PASCUAL ESTRELLA, 3016-3, 91045-5, HA1C #### [facility] ([id number]) [address] [address]BJX auto differentialon 37-64-6030Tagalmmiq (Bld) [#/Vol]0.0 10*3/[facility] SystemNeutrophils (Bld) [#/Vol]4.8 10*3/[facility] SystemRBC (Bld) [#/Vol]4.28 10*6/[facility] HospitalWBC corrected for nucl RBC Auto (Bld) [#/Vol]8.1PThe [facility] COMPREHENSIVE METABOLIC PANELon 46-70-0296Hcpxdib [Mass/Vol]4.3 g/dLNormal 3.2-5.3PSelect Medical Specialty Hospital - ColumbusComment on above:Performed By: #### CBCA, CMP, 3016-3, 00982-4, HA1C #### [facility] ([id number]) [address] [place], [place] [address]YBG [Catalytic activity/Vol]70 U/UAtlhuo11-796UprNazuay [place] HospitalComment on above:Performed By: #### SAMEER CMP, 3016-3, 93940-0, HA1C #### [facility] ([id number]) [address], [address] [place], [place] [address]LBH [Catalytic activity/Vol]30 U/LNormal0-31ProMedSamaritan Hospital HospitalComment on above:Performed By: #### CBCKathy, CMP, 3016-3, 76106-9, HA1C #### [facility] ([id number]) [address], [address] [place], [place] [address]Jpvzw gap [Moles/Vol]9 mmol/LNormal5-15ProChildren'[facility] For [facility] Hospital Comment on above:Performed By: #### PASCUAL ESTRELLA, 3016-3, 70826-3, HA1C #### [facility] ([id number]) [address], [address] [place], [place] [address]XKI [Catalytic activity/Vol]20 U/LNormal0-41ProChildren'S Hospital For Rehabilitation HospitalComment on above:Performed By: #### SAMEER, CMP, 3016-3, 24565-3, HA1C #### [facility] ([id number]) [address], [address] [place], [place] [address]Stdgkzqcd [Mass/Vol]0.6 mg/dLNormal0.3-1.2ProMedhelen keller hospital [place] HospitalComment on above:Performed By: #### CBCKathy, CMP, 3016-3, 99078-2, HA1C #### [facility] ([id number]) [address], [address] [place], [place] [address]Pwzpong [Mass/Vol]9.8 mg/dLNormal8.5-10.5ProMedhelen keller hospital [place] HospitalComment on above:Performed By: #### SAMEER, CMP, 3016-3, 60409-1, HA1C #### [facility] ([id number]) [address], [address] [place], [place] [address]Bzpstjti [Moles/Vol]98 mmol/IXvuols50-385KkeIefuml [place] HospitalComment on above:Performed By: #### SAMEER, CMP, 3016-3, 58902-2, HA1C #### [facility] ([id number]) [address], [address] [place], [place] [address]WX6 [Moles/Vol]28 mmol/QHsxvbd51-84PirTtiplwSelect Medical Specialty Hospital - [facility] Comment on above:Performed By: #### PASCUAL ESTRELLA, 3016-3, 00249-3, HA1C #### [facility] ([id number]) [address], [address] [place], [place] [address]Mitvcvxpys [Mass/Vol]0.63 mg/dLNormal0.40-1.00ProMercer County Community HospitalComment on above:Result Comment: METHOD TRACEABLE TO IDMS STANDARD Performed By: #### PASCUAL ESTRELLA, 3016-3, 05916-0, HA1C #### [facility] ([id number]) [address] [address] [place], [place] [address]lWQM (CKD-EPI) NON-RACE DEPENDENT>90Normal>59ProMercer County Community HospitalComment on above:Result Comment: Reported eGFR is based on the CKD-EPI 2020 equation that does not use a race coefficient.Performed By: #### SAMEER, PASCUAL, 3016-3, 88072-0, HA1C #### [facility] ([id number]) [address] [address] [place], [place] [address]Pyoktzu [Mass/Vol]212 mg/gTBjyd69-56WbuNejkytOhioHealth Grant Medical Center Comment on above:Performed By: #### DOROTHYA, CMP, 3016-3, 33673-6, HA1C #### [facility] ([id number]) [address] [place], [place] [address]Xfsbdsand [Moles/Vol]4.0 mmol/LNormal3.5-5.0ProChildren'S Hospital For Rehabilitation HospitalComment on above:Performed By: #### PASCUAL ESTRELLA, 3016-3, 61581-6, HA1C #### [facility] ([id number]) [address] [place], [place] [address]Iteraax [Mass/Vol]7.7 g/dLNormal6.0-8.0ProChildren'[facility] Hospital [facility] Hospital Comment on above:Performed By: #### SAMEER, PASCUAL, 3016-3, 12524-8, HA1C #### [facility] ([id number]) [address], [address] [place], [place] [address]Cwzqvn [Moles/Vol]135 mmol/QVnvyai499-559OxiXackrm [place] HospitalComment on above:Performed By: #### PASCUAL ESTRELLA, 3016-3, 26067-5, HA1C #### [facility] ([id number]) [address], [address] [place], [place] [address]Aiaa nitrogen [Mass/Vol]16 mg/dLNormal5-27ProChildren'S Hospital For Rehabilitation HospitalComment on above:Performed By: #### SAEMER, PASCUAL, 3016-3, 58050-1, HA1C #### [facility] ([id number]) [address], [address] [place], [place] [address]FCZ A1C (GLYCO-HGB)on 66-01-4945Onyerpt [Mass/Vol]206 mg/dL NormalProChildren'S Hospital For Rehabilitation HospitalComment on above:Performed By: #### SAMEER, PASCUAL, 3016-3, 38401-3, HA1C #### [facility] ([id number]) [address], [address] [place], [place] [address]MyQ7h (Bld) [Mass fraction]8.8 %High4.4-5.6ProChildren'S Hospital For Rehabilitation HospitalComment on above:Result Comment: NOTE ADA Guidelines Result HgbA1c Normal : less than 5.7 % Prediabetes : 5.7 % to 6.4 % Diabetes : > 6.4 % Use with caution in patients with abnormal hemoglobin variants as the half-life of red blood cells and in vivo glycation rates are affected.Performed By: #### PASCUAL ESTRELLA, 3016-3, 19947-0, HA1C #### [facility] ([id number]) [address] [facility], [address] [place], [place] [address]MNXU urinalysis dipstick onlyon 35-62-2276Kleoergpvo (U)clear [facility] SystemExternal Poct Urine BilirubinNegativeProUniversity Hospitals Lake West Medical Centerca Health SystemExternal Poct Urine BloodNegativeProVeterans Affairs Medical Center-B[facility] Health SystemExternal Poct Urine ColoryellowProOhiohealth [facility] SystemExternal Poct Urine GlucoseNegative [facility] Health SystemExternal Poct Urine KetonesNegativeTrumbull Regional Medical Center Health SystemExternal Poct Urine Leukocyte EsteraseNegativeTrumbull Regional Medical Center Health System External Poct Urine NitriteNegativeTrumbull Regional Medical Center Health SystemExternal Poct Urine Ph 5.5PLallie Kemp Regional Medical Center Health SystemExternal Poct Urine ProteinNegativeProVeterans Affairs Medical Center-Birmingham Health SystemExternal Poct Urine Specific Gravity1.025[facility] SystemExternal Poct Urine Urobilinogen0.2PHolzer Hospital SystemTrinity Health System SystemTSH Qnon 68-00-5076JWY0.63 uIU/mLNormal0.49-4.67OhioHealth Grant Medical CenterComment on above:Performed By: #### PASCUAL ESTRELLA, 3016-3, 13985-7, HA1C #### [facility] ([id number]) [address] [place], [place] [address]Wszaajc D+Metabolites [Mass/Vol]on 09-92-3009COPNOKJ D 25 HYD TOT33.5 ng/tUMdlujy32-819VvfLumngt [place] HospitalComment on above:Result Comment: Vitamin D status 25 [place] Vitamin D Deficiency <20 ng/mL Insufficiency 20-29 ng/mL Sufficiency 30-100 ng/mL Toxicity >100 ng/mL NOTE: A pediatric reference range has not been established by the marzipan maker of this kit. The [place] [employer] recommends a Vitamin D level of = or >20ng/mL in infants and children.Performed By: #### CBCA, CMP, 3016-3, 10528-6, HA1C #### [facility] ([id number]) [address] [facility], [address] [place], [place] [address]GMTG Hemoglobin A1con 89-54-9396OyN3c (Bld) [Mass fraction]8.2 g/dLAbnormal4 - 7 g/dLBlanchard Valley Health SystemInterpretation and review of laboratory resultsAbnoPrime Healthcare ServicesProgress Noteson 90-63-7330Pxyshkaqonjtj Authentication Interface Message Text----- Saturday, October 03, 2022 at 11:57:14 AM ----- ----- Provider: Randy Leon DMD -- Clinic: [place] ----- OR EVALUATION Patient presents for evaluation to determine best course of treatment due to history of No significant medical history. Patient is accompanied by caregiver for today's appointment. Patient partially cooperated for a partial intraoral exam. Clinical findings: Normal findings It is best suited that this patient have full comprehensive examination, radiographs and treatment completed in the OR setting. Explained that the patient will be added to our OR waiting list, and the legal guardian will be contacted once a time slot becomes available. Legal Guardian: [employer] in [place] is patient's legal guardian. Hortensiaroberto Home: Telma (nurse): [phone] NOTE: Patient allowed me to just look in her mouth today. Was able to note red, irriated gingiva and generalize plaque/calculus build up. Patient is not indicating that she is in any pain. Explained process of the waitlist/OR to patient's caregiver. Next Visit: ORNormalThe [facility] SystemCBC AUTO DIFFon 53-84-5920UOBC #0.0 103/ulNormal0.0-0.1The [facility] CenterComment on above:Performed By: #### CBC #### [facility] [address] [place] [address] Dr. Gagandeep BrookeBasophils/100 WBC (Bld)0.5 %Normal0.2-2.0[facility] Comment on above:Performed By: #### CBC #### [facility] [address] [place] [address] Dr. Gagandeep Boo #0.2 103/ulNormal0.0-0.7The [facility] Medical CenterComment on above: Performed By: #### CBC #### [facility] [address] [place] [address] Dr. Gagandeep Castilloosinophils/100 WBC (Bld)2.5 %Normal0.9-7.0[facility] Comment on above:Performed By: #### CBC #### [facility] [address] [place] [address] Dr. Gagandeep Castillorythrocyte distribution width (RBC) [Ratio]13.5 %Jaogso66.0-15.0 The [facility] CenterComment on above:Performed By: #### CBC #### [facility] [address] [place] [address] Dr. Gagandeep BrookeHematocrit (Bld) [Volume fraction]40.7 %Sbmnka50.0-48.0The [facility] CenterComment on above:Performed By: #### CBC #### [facility] [address] [place] [address] Dr. Gagandeep BrookeHemoglobin (Bld) [Mass/Vol]13.7 g/zZXtzzno76.0-16.0The [facility] CenterComment on above:Performed By: #### CBC #### [facility] [address] [place] [address] Dr. Gagandeep Vega #0.01 10e3/ulNormal0.00-0.03The [facility] CenterComment on above:Performed By: #### CBC #### [facility] [address] [place] [address] Dr. Gagandeep Vega %0.1 %Normal0.0-0.5The [facility] Medical CenterComment on above: Performed By: #### CBC #### [facility] [address] [place] [address] Dr. Gagandeep He #2.9 103/ulNormal1.2-3.8The [facility] CenterComment on above:Performed By: #### CBC #### [facility] [address] [place] [address] Dr. Gagandeep Garcíahocytes/100 WBC (Bld)39.1 %Tqrmwa05.5-60.0The [facility] Medical CenterComment on above:Performed By: #### CBC #### [facility] [address] [place] [address] Dr. Gagandeep Simons DIFF REQNONormalThe [facility] CenterComment on above: Performed By: #### CBC #### [facility] [address] [place] [address] Dr. Gagandeep Weller (RBC) [Entitic mass]31.2 foXzmpei95.7-34.0The [facility] CenterComment on above:Performed By: #### CBC #### [facility] [address] [place] [address] Dr. Gagandeep Coulter (RBC) [Mass/Vol]33.7 g/lDLkkgef68.9-35.2The [facility] CenterComment on above:Performed By: #### CBC #### [facility] [address] [place] [address] Dr. Gagandeep Rojas (RBC) [Entitic vol]92.7 bUKwhdgq57.0-99.0The [facility] CenterComment on above:Performed By: #### CBC #### [facility] [address] [place] [address] Dr. Gagandeep Watson #0.6 103/ulNormal0.3-0.8The [facility] CenterComment on above:Performed By: #### CBC #### [facility] [address] [place] [address] Dr. Yilan ChangMonocytes/100 WBC (Bld)8.5 %Normal1.7-12.0The [facility] Comment on above:Performed By: #### CBC #### [facility] [address] [place] [address] Dr. Gagandeep Hoffmann #3.6 103/ulNormal1.4-6.5The [facility] CenterComment on above:Performed By: #### CBC #### [facility] [address] [place] [address] Dr. Gagandeep Comerutrophils/100 WBC (Bld)49.3 %Mtlcqc03.0-75.0The [facility] CenterComment on above:Performed By: #### CBC #### [facility] [address] [place] [address] Dr. Gagandeep BrookePlatelet mean volume (Bld) [Entitic vol]9.5 fLNormal9.5-13.5The [facility] CenterComment on above:Performed By: #### CBC #### [facility] [address] [place] [address] Dr. Gagandeep BrookePLT244 103/vzXkzswf804-546Fny [facility] CenterComment on above: Performed By: #### CBC #### [facility] [address] [place] [address] Dr. Gagandeep BrookeRBC4.39 106/ulNormal4.20-5.40The [facility] CenterComment on above:Performed By: #### CBC #### [facility] [address] [place] [address] Dr. Gagandeep BrookeWBC7.3 103/ulNormal4.0-11.0The [facility] CenterComment on above: Performed By: #### CBC #### [facility] [address] [place] [address] Dr. Gagandeep BrookeGLYCOHEMOGLOBIN A1Con 83-62-0625YRX RECOMMENDATIONSEE BELOWNormal The [facility] CenterComment on above:Result Comment: ADA RECOMMENDED LIMIT 4.0 - 6.0 ADA THERAPEUTIC TARGET < 7.0 ACTION SUGGESTED > 7.0Performed By: #### A1C #### [facility] [address] [address] [address] Gagandeep BrookeGlucose [Mass/Vol]123 mg/dLOhio Valley Surgical HospitalComment on above:Performed By: #### A1C #### [facility] [address] [address] [address] Gagandeep BrookeHbA1c (Bld) [Mass fraction]5.9 %Normal4.5-6.2The [facility] CenterComment on above:Performed By: #### A1C #### [facility] [address] [address] [address] Gagandeep BrookeLIPID PROFILEon 47-33-8910TGMJ-HDL RATIO NORMSEE [facility] HospitalComun[facility] of [facility] on above:Result Comment: 3.3 - 4.4 LOW RISK 4.4 - 7.1 AVERAGE RISK 7.1 - 11.0 MODERATE RISK >11.0 HIGH RISKPerformed By: #### LIPID, CMP #### [facility] [address] [address] [address] Gagandeep Petersesterol [Mass/Vol]126 mg/dLNormal<=200[facility] Comment on above:Performed By: #### LIPID, CMP #### [facility] [address] [address] [address] Gagandeep Petersesterol in HDL [Mass/Vol]70 mg/dLCritically wglw12-19Bbi [facility] on above:Performed By: #### LIPID, CMP #### [facility] [address] [address] [address] Gagandeep Petersesterol in LDL [Mass/Vol]45.2 mg/dLOhio Valley Surgical HospitalComuniversity of michigan health on above:Performed By: #### LIPID, CMP #### [facility] [address] [address] [address] Gagandeep Petersesterol.total/Cholesterol in HDL [Mass ratio]1.8 {ratio} NormalThe [facility] Medical CenterComment on above:Performed By: #### LIPID, CMP #### [facility] [address] [address] [address] Gagandeep Mosqueda NORMAL> or = 60 mg/dl - LOW CARDIOVASCULAR RISK <40 mg/dl - HIGH CARDIOVASCULAR RISKOhio Valley Surgical HospitalComment on above:Performed By: #### LIPID, CMP #### [facility] [address] [address] [address] Gagandeep Fermin CALC NORMALSEE BELOWOhio Valley Surgical HospitalComment on above:Result Comment: <100 mg/dl OPTIMAL 100 - 129 mg/dl NEAR OR ABOVE OPTIMAL 130 - 159 mg/dl BORDERLINE HIGH 160 - 189 mg/dl HIGH >190 mg/dl VERY HIGH Performed By: #### LIPID, CMP #### [facility] [address] [address] [address] Gagandeep BrookeTriglyceride [Mass/Vol]54 mg/dLNormal<=150The [facility] Comment on above:Performed By: #### LIPID, CMP #### [facility] [address] [address] [address] Gagandeep GayLDL CALC10.8 mg/dLNoLutheran HospitalComment on above: Performed By: #### LIPID, CMP #### [facility] [address] [address] [address] Gagandeep BrookePROYao 14(COMP METB)on 45-87-1807Apzsceq [Mass/Vol]3.9 g/dLNormal 3.4-5.0Wilson HealthComment on above:Performed By: #### LIPID, CMP #### [facility] [address] [place] [address] Dr. Gagandeep BrookeAlbumin/Globulin [Mass ratio]0.9 {ratio}NormalThe [facility] CenterComment on above:Performed By: #### LIPID, CMP #### [facility] [address] [place] [address] Dr. Gagandeep Sewell [Catalytic activity/Vol]74 U/KSbtycm75-765Kpl [facility] CenterComuniversity of mich[facility] health on above:Performed By: #### LIPID, CMP #### [facility] [address] [place] [address] Dr. Yilan ChangALT [Catalytic activity/Vol]26 U/WZlsscs72-37Blb [facility] CenterComment on above:Performed By: #### LIPID, CMP #### [facility] [address] [place] [address] Dr. Gagandeep Manzanoon gap [Moles/Vol]13.1 mmol/LNormalWilson Health Comment on above:Performed By: #### LIPID, CMP #### [facility] [address] [place] [address] Dr. Gagandeep BrookeAST [Catalytic activity/Vol]19 U/WInxinu00-72Spt [facility] CenterComment on above:Performed By: #### LIPID, CMP #### [facility] [address] [place] [address] Dr. Gagandeep BrookeBilirubin [Mass/Vol]0.4 mg/dLNormal0.2-1.0[facility] Comment on above:Performed By: #### LIPID, CMP #### [facility] [address] [place] [address] Dr. Gagandeep BrookeCalcium [Mass/Vol]9.1 mg/dLNormal8.5-10.1[facility] Comment on above:Performed By: #### LIPID, CMP #### [facility] [address] [place] [address] Dr. Gagandeep BrookeChloride [Moles/Vol]102 mmol/JBaheci66-283UrqWilson Health Comment on above:Performed By: #### LIPID, CMP #### [facility] [address] [place] [address] Dr. Gagandeep BrookeCO2 [Moles/Vol]27.4 mmol/MEzyifg15.0-32.0The [facility] Comment on above:Performed By: #### LIPID, CMP #### [facility] [address] [place] [address] Dr. Gagandeep BrookeCreatinine [Mass/Vol]0.50 mg/dLCritically low0.55-1.02The [facility] CenterComment on above:Performed By: #### LIPID, CMP #### [facility] [address] [place] [address] Dr. Gagandeep CastilloGFR-AF CZECH>60Normal>=60The [facility] CenterComment on above:Performed By: #### LIPID, CMP #### [facility] [address] [place] [address] Dr. Gagandeep CastilloGFR-NON AF CZECH>60Normal>=60The [facility] CenterComment on above:Performed By: #### LIPID, CMP #### [facility] [address] [address] [address] Gagandeep BrookeGlobulin (S) [Mass/Vol]4.4 g/dLNormalThe [facility] CenterComment on above:Performed By: #### LIPID, CMP #### [facility] [address] [place] [address] Dr. Gagandeep BrookeGlucose [Mass/Vol]104 mg/kOCdaedu59-892WhgWilson Health Comment on above:Performed By: #### LIPID, CMP #### [facility] [address] [place] [address] Dr. Gagandeep BrookePotassium [Moles/Vol]4.5 mmol/LNormal3.5-5.1[facility] Comment on above:Performed By: #### LIPID, CMP #### [facility] [address] [place] [address] Dr. Gagandeep BrookeProtein [Mass/Vol]8.3 g/dLCritically high6.4-8.2Wilson HealthComment on above:Performed By: #### LIPID, CMP #### [facility] [address] [place] [address] Dr. Gagandeep BrookeSodium [Moles/Vol]138 mmol/ZEltdus500-440Hhj [facility] Comment on above:Performed By: #### LIPID, CMP #### [facility] [address] [place] [address] Dr. Gagandeep BrookeUrea nitrogen [Mass/Vol]15.0 mg/dLNormal7.0-18.0The [facility] CenterComment on above:Performed By: #### LIPID, CMP #### [facility] [address] [place] [address] Dr. Gagandeep Espinal nitrogen/Creatinine [Mass ratio]30.0 mg/mgNormalThe [facility] CenterComment on above:Performed By: #### LIPID, CMP #### [facility] [address] [place] [address] Dr. Gagandeep BrookeCOVID/FLU RT-PCRon 41-79-1436XVNX-CoV-2 (COVID-19) RNA MACRINA+probe Ql (Unsp spec)PositiveNort Protek-dor Other COVID/FLU RT-PCRNegativeNoSoStupid.com Other t4 LABCORPon 92-24-2566G3 [Mass/Vol]8.4 ug/dLNormal 4.5-12.0The [facility] CenterComment on above:Performed By: #### T4LC #### [facility] [address] [place] [address] Dr. Gagandeep GarciaC AUTO DIFFon 30-69-5111GLSV #0.0 103/ulNormal0.0-0.1Wilson HealthComment on above:Performed By: #### CBC #### [facility] [address] [place] [address] Dr. Gagandeep Guadarramasophils/100 WBC (Bld)0.5 %Normal0.2-2.0[facility] Comment on above:Performed By: #### CBC #### [facility] [address] [place] [address] Dr. Gagandeep Boo #0.2 103/ulNormal0.0-0.7The [facility] CenterComment on above: Performed By: #### CBC #### [facility] [address] [place] [address] Dr. Gagandeep Castilloosinophils/100 WBC (Bld)2.2 %Normal0.9-7.0The [facility] Comment on above:Performed By: #### CBC #### [facility] [address] [place] [address] Dr. Gagandeep Castillorythrocyte distribution width (RBC) [Ratio]14.1 %Zmyuhf11.0-15.0 The [facility] CenterComment on above:Performed By: #### CBC #### [facility] [address] [place] [address] Dr. Gagandeep BrookeHematocrit (Bld) [Volume fraction]41.6 %Djforp11.0-48.0The [facility] CenterComment on above:Performed By: #### CBC #### [facility] [address] [place] [address] Dr. Gagandeep BrookeHemoglobin (Bld) [Mass/Vol]13.8 g/oNJhzgyk27.0-16.0The [facility] CenterComment on above:Performed By: #### CBC #### [facility] [address] [place] [address] Dr. Gagandeep Vega #0.02 10e3/ulNormal0.00-0.03The [facility] CenterComment on above:Performed By: #### CBC #### [facility] [address] [place] [address] Dr. Gagandeep Vega %0.3 %Normal0.0-0.5The [facility] CenterComment on above: Performed By: #### CBC #### [facility] [address] [place] [address] Dr. Gagandeep He #2.9 103/ulNormal1.2-3.8The [facility] CenterComment on above:Performed By: #### CBC #### [facility] [address] [place] [address] Dr. Gagandeep Garcíahocytes/100 WBC (Bld)36.7 %Wxxeps75.5-60.0The [facility] CenterComment on above:Performed By: #### CBC #### [facility] [address] [place] [address] Dr. Gagandeep KooUAL DIFF REQNONormalThe [facility] CenterComment on above: Performed By: #### CBC #### [facility] [address] [place] [address] Dr. Gagandeep Weller (RBC) [Entitic mass]30.5 dnVxwsoj23.7-34.0The [facility] CenterComment on above:Performed By: #### CBC #### [facility] [address] [place] [address] Dr. Gagandeep Rojas (RBC) [Mass/Vol]33.2 g/kREljbhv64.9-35.2The [facility] CenterComment on above:Performed By: #### CBC #### [facility] [address] [place] [address] Dr. Gagandeep Rojas (RBC) [Entitic vol]91.8 fGRinjze79.0-99.0The [facility] CenterComment on above:Performed By: #### CBC #### [facility] [address] [place] [address] Dr. Gagandeep Watson #0.5 103/ulNormal0.3-0.8The [facility] CenterComment on above:Performed By: #### CBC #### [facility] [address] [place] [address] Dr. Gagandeep Batesocytes/100 WBC (Bld)6.6 %Normal1.7-12.0The [facility] Comment on above:Performed By: #### CBC #### [facility] [address] [place] [address] Dr. Gagandeep Hoffmann #4.2 103/ulNormal1.4-6.5The [facility] CenterComment on above:Performed By: #### CBC #### [facility] [address] [place] [address] Dr. Gagandeep Comerutrophils/100 WBC (Bld)53.7 %Ezydfp66.0-75.0The [facility] CenterComment on above:Performed By: #### CBC #### [facility] [address] [place] [address] Dr. Gagandeep Vaughnlet mean volume (Bld) [Entitic vol]9.8 fLNormal9.5-13.5The [facility] CenterComment on above:Performed By: #### CBC #### [facility] [address] [address] [address] Gagandeep BrookePLT260 103/cnFmrdxw772-221Suo [facility] on above: Performed By: #### CBC #### [facility] [address] [address] [address] Gagandeep BrookeRBC4.53 106/ulNormal4.20-5.40The [facility] CenterComun[facility] on above:Performed By: #### CBC #### [facility] [address] [address] [address] Gagandeep BrookeWBC7.8 103/ulNormal4.0-11.0The [facility] on above: Performed By: #### CBC #### [facility] [address] [place] [address] Dr. Gagandeep BrookeGLYCOHEMOGLOBIN A1Con [id number] RECOMMENDATIONSEE BELOWNormal The [facility] CenterComun[facility] on above:Result Comment: ADA RECOMMENDED LIMIT 4.0 - 6.0 ADA THERAPEUTIC TARGET < 7.0 ACTION SUGGESTED > 7.0Performed By: #### A1C #### [facility] [address] [place] [address] Dr. Gagandeep BrookeGlucose [Mass/Vol]123 mg/dLNormalThe [facility] CenterComun[facility] on above:Performed By: #### A1C #### [facility] [address] [place] [address] Dr. Gagandeep BrookeHbA1c (Bld) [Mass fraction]5.9 %Normal4.5-6.2The [facility] CenterCom[facility] on above:Performed By: #### A1C #### [facility] [address] [place] [address] Dr. Gagandeep BrookeMICROALBUMIN, RAND URon [id number]<1.3Normal<=30.0The [facility] CenterCom[facility] on above:Performed By: #### MALBR #### [facility] [address] [address] [address] Gagandeep BrookePROF 14(COMP METB)on [id number] [Mass/Vol]4.3 g/dLNormal 3.4-5.0The [facility] CenterComment on above:Performed By: #### CMP, TSH #### [facility] [address] [place] [address] Dr. Gagandeep BrookeAlbumin/Globulin [Mass ratio]0.9 {ratio}NormalThe [facility] CenterComment on above:Performed By: #### CMP, TSH #### [facility] [address] [address] [address] Gagandeep Sewell [Catalytic activity/Vol]75 U/WYrkkqn82-802Opa [facility] CenterComment on above:Performed By: #### CMP, TSH #### [facility] [address] [place] [address] Dr. Gagandeep Pollock [Catalytic activity/Vol]34 U/IJwleci03-10Sqx [facility] CenterComment on above:Performed By: #### CMP, TSH #### [facility] [address] [place] [address] Dr. Gagandeep Baldwin gap [Moles/Vol]19.9 mmol/LNormalThe [facility] Comment on above:Performed By: #### CMP, TSH #### [facility] [address] [place] [address] Dr. Gagandeep Fletcher [Catalytic activity/Vol]16 U/PLhxzqj65-21Dqp [facility] CenterComment on above:Performed By: #### CMP, TSH #### [facility] [address] [place] [address] Dr. Gagandeep BrookeBilirubin [Mass/Vol]0.4 mg/dLNormal0.2-1.0The [facility] Comment on above:Performed By: #### CMP, TSH #### [facility] [address] [place] [address] Dr. Gagandeep BrookeCalcium [Mass/Vol]9.4 mg/dLNormal8.5-10.1The [facility] Comment on above:Performed By: #### CMP, TSH #### [facility] [address] [place] [address] Dr. Yilan ChangChloride [Moles/Vol]102 mmol/ANvxhtl76-584Kez [facility] Comment on above:Performed By: #### CMP, TSH #### [facility] [address] [place] [address] Dr. Gagandeep BrookeCO2 [Moles/Vol]22.2 mmol/JEfukty62.0-32.0The [facility] Comment on above:Performed By: #### CMP, TSH #### [facility] [address] [address] [address] Gagandeep BrookeCreatinine [Mass/Vol]0.53 mg/dLCritically low0.55-1.02The [facility] CenterComment on above:Performed By: #### CMP, TSH #### [facility] [address] [place] [address] Dr. Gagandeep CastilloGFR-AF CZECH>60Normal>=60The [facility] CenterComment on above:Performed By: #### CMP, TSH #### [facility] [address] [place] [address] Dr. Gagandeep CastilloGFR-NON AF CZECH>60Normal>=60The [facility] CenterComment on above:Performed By: #### CMP, TSH #### [facility] [address] [place] [address] Dr. Gagandeep BrookeGlobulin (S) [Mass/Vol]4.4 g/dLNormalThe [facility] CenterComment on above:Performed By: #### CMP, TSH #### [facility] [address] [place] [address] Dr. Gagandeep BrookeGlucose [Mass/Vol]71 mg/dLCritically wed78-091Bkb [facility] CenterComment on above:Performed By: #### CMP, TSH #### [facility] [address] [place] [address] Dr. Gagandeep BrookePotassium [Moles/Vol]4.2 mmol/LNormal3.5-5.1The [facility] Comment on above:Performed By: #### CMP, TSH #### [facility] [address] [place] [address] Dr. Yilan ChangProtein [Mass/Vol]8.7 g/dLCritically high6.4-8.2The [facility] CenterComment on above:Performed By: #### CMP, TSH #### [facility] [address] [address] [address] Gagandeep Akbardium [Moles/Vol]140 mmol/XCqgypv207-528Kno [facility] Comment on above:Performed By: #### CMP, TSH #### [facility] [address] [address] [address] Gagandeep Espinal nitrogen [Mass/Vol]18.0 mg/dLNormal7.0-18.0The [facility] CenterComment on above:Performed By: #### CMP, TSH #### [facility] [address] [address] [address] Gagandeep Espinal nitrogen/Creatinine [Mass ratio]33.9 mg/mgNoLutheran HospitalComment on above:Performed By: #### CMP, TSH #### [facility] [address] [address] [address] Gagandeep Marrero [id number] uIU/mLNormal0.358-3.740Wilson HealthComment on above:Performed By: #### CMP, TSH ####[facility] [address] [address]. Gagandeep Moore RANGESEE BELOWOhio Valley Surgical HospitalComment on above:Result Comment: <0.34 UIU/ml HYPERTHYROID 0.34-5.60 UIU/ml EUTHYROID >5.60 UIU/ml HYPOTHYROIDPerformed By: #### CMP, TSH ####[facility] [address] [id number]. Gagandeep Brooke Vital Signs Date TimeVital SignValuePerforming UvtuijlkwGhfshqqq47-44-1177 09:28-0500Body odsacm107.9 cmSteven [email or web address] DPM Work Phone: [facility] HospitalWnsyhxpkrk41-03-5140 09:28-0500Body mass index (BMI) [Ratio]27.47 kg/i2Tjinma Chris DPM Work Phone: [facility] HospitalHhzwfrlzla97-91-1182 09:28-0500Body kwrdik11.69 kgSteven Chris DPM Work Phone: [facility] HospitalSucwhjbcqf40-20-8965 13:42-0400Body .3 cmTerese Griffinzer HOUSING AND RESIDENCE LIFE DIRECTOR-THERAPEUTIC ACTIVITIES SERVICES WORKER Work Phone: [facility]10-13-2025 13:42-0400Body mass index (BMI) [Ratio]28.35 kg/m2Terese Griffinzer HOUSING AND RESIDENCE LIFE DIRECTOR-THERAPEUTIC ACTIVITIES SERVICES WORKER Work Phone: [facility] [employer] Bordwc47-06-6125 13:42-0400Body wpfxgvtwqic37.29 [degF]Terese Griffinzer HOUSING AND RESIDENCE LIFE DIRECTOR-THERAPEUTIC ACTIVITIES SERVICES WORKER Work Phone: [facility] [employer] Lexyjf70-01-7712 13:42-0400Body nhaspv42.51 kgTerese Griffinzer HOUSING AND RESIDENCE LIFE DIRECTOR-THERAPEUTIC ACTIVITIES SERVICES WORKER Work Phone: [facility]10-13-2025 13:42-0400Diastolic blood wufqyjas38 mm[Hg]Terese Griffinzer HOUSING AND RESIDENCE LIFE DIRECTOR-THERAPEUTIC ACTIVITIES SERVICES WORKER Work Phone: [facility] [employer] Rgdziu20-85-6890 13:42-0400Heart rate 71 /minTerese Griffinzer HOUSING AND RESIDENCE LIFE DIRECTOR-THERAPEUTIC ACTIVITIES SERVICES WORKER Work Phone: [facility] [employer] Ijiier36-59-7351 13:42-0400 Respiratory rate18 /minTerese Griffinzer HOUSING AND RESIDENCE LIFE DIRECTOR-THERAPEUTIC ACTIVITIES SERVICES WORKER Work Phone: [facility]10-13-2025 13:42-2339ErX9% (BldA) [Mass fraction]96 %Terese Griffinzer HOUSING AND RESIDENCE LIFE DIRECTOR-THERAPEUTIC ACTIVITIES SERVICES WORKER Work Phone: [facility]10-13-2025 13:42-0400Systolic blood mgkauita906 mm[Hg]Terese Griffinzer HOUSING AND RESIDENCE LIFE DIRECTOR-THERAPEUTIC ACTIVITIES SERVICES WORKER Work Phone: [facility]06-20-2025 08:38-0400Body mass index (BMI) [Ratio]29.05 kg/l2WbzpdbeAnika Morocho APRN-THERAPEUTIC ACTIVITIES SERVICES WORKER Work Phone: [facility] [employer] Elwngq53-55-4213 08:38-0400Body fjqxtgvozba92 [degF]Anika Morocho APRN-THERAPEUTIC ACTIVITIES SERVICES WORKER Work Phone: [facility]06-20-2025 08:38-0400Body .05 kgAnika Morocho APRN-THERAPEUTIC ACTIVITIES SERVICES WORKER Work Phone: [facility]06-20-2025 08:38-0400Diastolic blood jupgnvbr49 mm[Hg]Anika Morocho APRN-THERAPEUTIC ACTIVITIES SERVICES WORKER Work Phone: [facility]06-20-2025 08:38-0400Heart rate 81 /minAnika Morocho APRN-THERAPEUTIC ACTIVITIES SERVICES WORKER Work Phone: [facility]06-20-2025 08:38-0400 Respiratory rate18 /minAnika Morocho APRN-[place] Work Phone: [facility]06-20-2025 08:38-3957HjA0% (BldA) [Mass fraction]96 %Anika Morocho APRN-[place] Work Phone: [facility]06-20-2025 08:38-0400Systolic blood hrzncidq953 mm[Hg]Anika Morocho APRN-THERAPEUTIC ACTIVITIES SERVICES WORKER Work Phone: [facility]05-09-2025 09:11-0400Body mass index (BMI) [Ratio]29.05 kg/f7ZwpwjyrAnika Morocho APRN-THERAPEUTIC ACTIVITIES SERVICES WORKER Work Phone: [facility] [employer] Qzmyho50-19-8282 09:11-0400Body jhizienjpyd08.5 [degF]Anika Morocho APRN-THERAPEUTIC ACTIVITIES SERVICES WORKER Work Phone: [facility] [employer] Idzysc27-30-3391 09:11-0400Body zerjvd15.05 kgAnika Morocho APRN-THERAPEUTIC ACTIVITIES SERVICES WORKER Work Phone: [facility]05-09-2025 09:110400Diastolic blood ffhokfpa89 mm[Hg]Anika Morocho APRN-THERAPEUTIC ACTIVITIES SERVICES WORKER Work Phone: [facility]05-09-2025 09:110400Heart rate 64 /minAnika Morocho HOUSING AND RESIDENCE LIFE DIRECTOR-THERAPEUTIC ACTIVITIES SERVICES WORKER Work Phone: [facility]05-09-2025 09:11-0400 Respiratory rate18 /minAnika Morocho HOUSING AND RESIDENCE LIFE DIRECTOR-THERAPEUTIC ACTIVITIES SERVICES WORKER Work Phone: [facility]05-09-2025 09:11-3076PyU9% (BldA) [Mass fraction]96 %Anika Morocho APRN-THERAPEUTIC ACTIVITIES SERVICES WORKER Work Phone: [facility]05-09-2025 09:11-0400Systolic blood mm[Hg]Anika Morocho APRN-THERAPEUTIC ACTIVITIES SERVICES WORKER Work Phone: [facility]05-08-2025 12:53-0400Body tygiyj413.9 cmSteven Rusher DPM Work Phone: [phone])[address]05-08-2025 12:53-0400Body mass index (BMI) [Ratio]27.47 kg/f0Xhxrjx Rusher DPM Work Phone: [phone])[address]05-08-2025 12:53-0400Body arfxtg34.69 kgSteven Rusher DPM Work Phone: [phone])[address]02-14-2025 09:16-0500Body mass index (BMI) [Ratio]29.47 kg/q2LavlrwgAnika Morocho HOUSING AND RESIDENCE LIFE DIRECTOR-THERAPEUTIC ACTIVITIES SERVICES WORKER Work Phone: [facility]02-14-2025 09:16-0500Body gvxpeafumlk18.29 [degF]Anika Morocho APRN-THERAPEUTIC ACTIVITIES SERVICES WORKER Work Phone: [facility]02-14-2025 09:16-0500Body ynwnrg30.96 kgAnika Morocho HOUSING AND RESIDENCE LIFE DIRECTOR-THERAPEUTIC ACTIVITIES SERVICES WORKER Work Phone: [facility]02-14-2025 09:16-0500Diastolic blood axfohrai13 mm[Hg]Anika Morocho HOUSING AND RESIDENCE LIFE DIRECTOR-THERAPEUTIC ACTIVITIES SERVICES WORKER Work Phone: [facility]02-14-2025 09:16-0500Heart rate 79 /minAnika Morocho HOUSING AND RESIDENCE LIFE DIRECTOR-THERAPEUTIC ACTIVITIES SERVICES WORKER Work Phone: [facility]02-14-2025 09:16-0500 Respiratory rate17 /minAnika Morocho HOUSING AND RESIDENCE LIFE DIRECTOR-THERAPEUTIC ACTIVITIES SERVICES WORKER Work Phone: [facility]02-14-2025 09:16-0877DsZ5% (BldA) [Mass fraction]98 %Anika Morocho HOUSING AND RESIDENCE LIFE DIRECTOR-THERAPEUTIC ACTIVITIES SERVICES WORKER Work Phone: [facility]02-14-2025 09:16-0500Systolic blood fprtibwf994 mm[Hg]Anika Morocho HOUSING AND RESIDENCE LIFE DIRECTOR-THERAPEUTIC ACTIVITIES SERVICES WORKER Work Phone: [facility]11-25-2024 10:13-0500Body bppqiz395.4 cmSteven Rusher DPM Work Phone: [phone])[address]11-25-2024 10:13-0500Body mass index (BMI) [Ratio]26.56 kg/f7Nxjdlx Rusher DPM Work Phone: [phone]11-25-2024 10:13-0500Body .69 kgSteven Rusher DPM Work Phone: [phone] [address]-15-2024 09:02-0500Body mass index (BMI) [Ratio]31.98 kg/y1Tyuzbijaugust Morocho HOUSING AND RESIDENCE LIFE DIRECTOR-THERAPEUTIC ACTIVITIES SERVICES WORKER Work Phone: [facility]11-15-2024 09:02-0500Body upxqjy83.4 kgMarisabelriaugust Morocho HOUSING AND RESIDENCE LIFE DIRECTOR-THERAPEUTIC ACTIVITIES SERVICES WORKER Work Phone: [facility]11-15-2024 09:02-0500Diastolic blood sokmjtfc33 mm[Hg]Anika Morocho HOUSING AND RESIDENCE LIFE DIRECTOR-THERAPEUTIC ACTIVITIES SERVICES WORKER Work Phone: [facility] [employer] Isksey30-75-1933 09:02-0500Heart rate 58 /minAnika Morocho APRN-THERAPEUTIC ACTIVITIES SERVICES WORKER Work Phone: [facility] [employer] Oybvjl72-59-5693 09:02-6145SgP0% (BldA) [Mass fraction]94 %Anika Morocho APRN-THERAPEUTIC ACTIVITIES SERVICES WORKER Work Phone: [facility] [employer] Qtraxw99-40-6293 09:02-0500Systolic blood mm[Hg]Anika Morocho APRN-THERAPEUTIC ACTIVITIES SERVICES WORKER Work Phone: [facility] [employer] Flsqgc23-27-3006 15:03-0400Body fyxxgl051.3 cmVyaneli Morocho APRN-THERAPEUTIC ACTIVITIES SERVICES WORKER Work Phone: [facility] [employer] Zwhaek98-98-1350 15:03-0400Body mass index (BMI) [Ratio]34.74 kg/z1PrmufeeAnika Morocho APRN-THERAPEUTIC ACTIVITIES SERVICES WORKER Work Phone: [facility] [employer] Shdmdj24-88-2827 15:03-0400Body aqaefqnukfw42.29 [degF]Anika Morocho APRN-THERAPEUTIC ACTIVITIES SERVICES WORKER Work Phone: [facility] [employer] Jnjzvv80-96-1949 15:03-0400Body nzqjjy14.39 kgAnika Morocho APRN-THERAPEUTIC ACTIVITIES SERVICES WORKER Work Phone: [facility] [employer] Snwtlt79-89-1110 15:03-0400Diastolic blood idtyayzf45 mm[Hg]Anika Morocho APRN-THERAPEUTIC ACTIVITIES SERVICES WORKER Work Phone: [facility] [employer] Figgrm99-46-1151 15:03-0400Heart rate 70 /minAnika Morocho APRN-THERAPEUTIC ACTIVITIES SERVICES WORKER Work Phone: [facility] [employer] Cxqgxk63-29-4044 15:03-0400 Respiratory rate18 /minAnika Morocho APRN-THERAPEUTIC ACTIVITIES SERVICES WORKER Work Phone: [facility] [employer] Zurivo33-35-2761 15:03-2517ByR8% (BldA) [Mass fraction]92 %Anika TEJADA Work Phone: [facility] [employer] Umpksq55-81-8038 15:03-0400Systolic blood ospxwifv566 mm[Hg]Anika TEJADA Work Phone: [facility] [employer] Okubea96-40-4812 14:59-0400Body imynzjbewpg42.3 [degF]Anika Morocho APRN-[place] Work Phone: [facility]10-15-2024 14:59-0400Heart rate 63 /Sharda Morocho APRN-[place] Work Phone: [facility]10-15-2024 14:59-0400 Respiratory rate18 /Sharda Morocho APRN-[place] Work Phone: [facility]10-15-2024 14:59-9485RlM6% (BldA) [Mass fraction]96 %Anika TEJADA Work Phone: [facility]08-22-2024 13:38-0400Body zyytfa583.32 [facility] 13:38-0400Body mass index (BMI) [Ratio]30.4 kg/f8FfnhbbajwHarrison Community Hospital08-22-2024 13:38-0400Body yexgzjnfggn78 [degF][facility]08-22-2024 13:38-0400Body mrjrej36.94 kgH[facility]08-22-2024 13:38-0400Diastolic blood buccgpjh62 mm[Hg][facility] 11-14-2023 13:38-0400Heart rate71 /[facility] 11-14-2023 13:38-0400Respiratory rate18 /[facility] 11-14-2023 13:38-6133SxP6% (BldA) [Mass fraction]95 %[facility]08-22-2024 13:38-0400Systolic blood mm[Hg][facility]06-07-2024 09:01-0400Body mass index (BMI) [Ratio]27.99 kg/m2 Anika Morocho HOUSING AND RESIDENCE LIFE DIRECTOR-THERAPEUTIC ACTIVITIES SERVICES WORKER Work Phone: [facility]06-07-2024 09:01-0400Body bxikrcolqhg89.29 [degF]Anika Morocho HOUSING AND RESIDENCE LIFE DIRECTOR-THERAPEUTIC ACTIVITIES SERVICES WORKER Work Phone: [facility]06-07-2024 09:01-0400Body akvkrs69.74 kgAnika Morocho HOUSING AND RESIDENCE LIFE DIRECTOR-THERAPEUTIC ACTIVITIES SERVICES WORKER Work Phone: [facility]06-07-2024 09:01-0400Diastolic blood zudnsgdt52 mm[Hg]Anika Morocho HOUSING AND RESIDENCE LIFE DIRECTOR-THERAPEUTIC ACTIVITIES SERVICES WORKER Work Phone: [facility]06-07-2024 09:01-0400Heart rate 79 /minAnika Morocho HOUSING AND RESIDENCE LIFE DIRECTOR-THERAPEUTIC ACTIVITIES SERVICES WORKER Work Phone: [facility]06-07-2024 09:01-0400Systolic blood euijeond688 mm[Hg]Anika Morocho HOUSING AND RESIDENCE LIFE DIRECTOR-THERAPEUTIC ACTIVITIES SERVICES WORKER Work Phone: [facility]05-17-2024 08:00-0400Body mass index (BMI) [Ratio]27.99 kg/i8OcqcrlsAnika Morocho APRN-THERAPEUTIC ACTIVITIES SERVICES WORKER Work Phone: [facility]05-17-2024 08:00-0400Body xmyduwbechu17.9 [degF]Anika Morocho HOUSING AND RESIDENCE LIFE DIRECTOR-THERAPEUTIC ACTIVITIES SERVICES WORKER Work Phone: [facility]05-17-2024 08:00-0400Body .74 kgAnika Morocho HOUSING AND RESIDENCE LIFE DIRECTOR-THERAPEUTIC ACTIVITIES SERVICES WORKER Work Phone: [facility]05-17-2024 08:00-0400Diastolic blood kytpphce79 mm[Hg]Anika Morocho HOUSING AND RESIDENCE LIFE DIRECTOR-THERAPEUTIC ACTIVITIES SERVICES WORKER Work Phone: [facility]05-17-2024 08:00-0400Heart rate 76 /minAnika Morocho HOUSING AND RESIDENCE LIFE DIRECTOR-THERAPEUTIC ACTIVITIES SERVICES WORKER Work Phone: [facility] [employer] Ifynvs51-94-1793 08:00-0400 Respiratory rate16 /minAnika Morocho APRN-THERAPEUTIC ACTIVITIES SERVICES WORKER Work Phone: [facility] [employer] Wiqvew74-53-4836 08:00-1144OhG8% (BldA) [Mass fraction]98 %Anika Morocho APRN-THERAPEUTIC ACTIVITIES SERVICES WORKER Work Phone: [facility] [employer] Djuldy99-27-0895 08:00-0400Systolic blood nyquhyjw996 mm[Hg]Anika Morocho APRN-THERAPEUTIC ACTIVITIES SERVICES WORKER Work Phone: [facility] [employer] Egpgyr76-91-3582 14:29-0400Body bxoadc073.3 cmVyaneli Morocho APRN-THERAPEUTIC ACTIVITIES SERVICES WORKER Work Phone: [facility] [employer] Waitvh86-06-9712 14:29-0400Body mass index (BMI) [Ratio]28.38 kg/e8AkpxlrbAnika Morocho APRN-THERAPEUTIC ACTIVITIES SERVICES WORKER Work Phone: [facility] [employer] Ngbozp80-18-2338 14:29-0400Body gjnkhqicbpu58.81 [degF]Anika Morocho APRN-THERAPEUTIC ACTIVITIES SERVICES WORKER Work Phone: [facility] [employer] Ujdpzp73-99-0192 14:29-0400Body reexde24.6 kgAnika Morocho APRN-THERAPEUTIC ACTIVITIES SERVICES WORKER Work Phone: [facility] [employer] Muhpgs71-30-5747 14:29-0400Diastolic blood szlejhzd85 mm[Hg]Anika Morocho APRN-THERAPEUTIC ACTIVITIES SERVICES WORKER Work Phone: [facility] [employer] Gisaju40-74-4849 14:29-0400Heart rate 75 /minAnika Morocho APRN-THERAPEUTIC ACTIVITIES SERVICES WORKER Work Phone: [facility] [employer] Bvrbre41-47-0079 14:29-0400 Respiratory rate18 /minAnika Morocho APRN-THERAPEUTIC ACTIVITIES SERVICES WORKER Work Phone: [facility] [employer] Ycmfkr22-83-4110 14:29-2627GnY8% (BldA) [Mass fraction]94 %Anika Morocho HOUSING AND RESIDENCE LIFE DIRECTOR-THERAPEUTIC ACTIVITIES SERVICES WORKER Work Phone: [facility] [employer] Myrjdt43-80-3810 14:29-0400Systolic blood yzawglkh053 mm[Hg]Anika Moorcho HOUSING AND RESIDENCE LIFE DIRECTOR-THERAPEUTIC ACTIVITIES SERVICES WORKER Work Phone: [facility] [employer] Bvjlze26-52-1848 08:03-0500Body mass index (BMI) [Ratio]28.59 kg/e1AvbfrpuAnika Morocho HOUSING AND RESIDENCE LIFE DIRECTOR-THERAPEUTIC ACTIVITIES SERVICES WORKER Work Phone: [facility] [employer] Xroynj64-07-3637 08:03-0500Body auvoapwgpoh19.11 [degF]Anika Morocho HOUSING AND RESIDENCE LIFE DIRECTOR-THERAPEUTIC ACTIVITIES SERVICES WORKER Work Phone: [facility] [employer] Tgytey89-88-8640 08:03-0500Body xgpmvu57.05 kgAnika Morocho HOUSING AND RESIDENCE LIFE DIRECTOR-THERAPEUTIC ACTIVITIES SERVICES WORKER Work Phone: [facility] [employer] Okyhgs58-68-7640 08:03-0500Diastolic blood mm[Hg]Anika Morocho HOUSING AND RESIDENCE LIFE DIRECTOR-THERAPEUTIC ACTIVITIES SERVICES WORKER Work Phone: [facility] [employer] Tycjug48-05-4001 08:03-0500Heart rate 78 /minAnika Morocho APRN-THERAPEUTIC ACTIVITIES SERVICES WORKER Work Phone: [facility] [employer] Nwmaqu77-82-3967 08:03-0500 Respiratory rate16 /minAnika Morocho HOUSING AND RESIDENCE LIFE DIRECTOR-THERAPEUTIC ACTIVITIES SERVICES WORKER Work Phone: [facility] [employer] Gnegrd72-02-2118 08:03-0500Systolic blood zodyuldl955 mm[Hg]Anika Morocho HOUSING AND RESIDENCE LIFE DIRECTOR-THERAPEUTIC ACTIVITIES SERVICES WORKER Work Phone: [facility] [employer] Ciazot25-88-5997 12:55-0400Body xkxdcqfssti72.1 [degF]Telma Camacho Other [place] [employer] Other 10-09-2022 12:55-0400Body pwitxr17.78 kgTelma Camacho Other [facility] [employer] Other 10-09-2022 12:55-0400Respiratory rate18 /minSemily Camacho Other [facility] [employer] Other 10-09-2022 12:55-1735RsL2% (BldA) [Mass fraction]92 % Telma Camacho Other [facility] [employer] Other Encounters Encounter DateEncounter TypeCare ProviderFacilityStart: 02-01-2025 End: 78-96-1179Xohxqa flowsheetSteven A Rusher DPM Work Phone: [facility] PodiatryStart: 02-01-2025 End: 98-94-6935Rzldqs flowsheetSteven A Rusher DPM Work Phone: [facility] PodiatryStart: 02-01-2025 End: 16-17-8047Toxdnsh encounter procedureSteven A Rusher DPM Work Phone: [facility] PodiatryComment on above:Dermatophytosis of nail (Primary Dx); Dystrophic nail; Pain around toenail, right foot; Pain around toenail, left footStart: 02-01-2025 End: 45-24-8683hymvidohimLTBTIM A RUSHERNot AvailableStart: 01-04-2025 End: 56-73-6365Gfvjvk outpatient visit 25 minutesTerese Edwards HOUSING AND RESIDENCE LIFE DIRECTOR-THERAPEUTIC ACTIVITIES SERVICES WORKER Work Phone: [facility] - Family MedicineComment on above:Diabetes mellitus treated with injections of non- insulin medication ([facility]-H[facility]) (Primary Dx); Essential hypertension; Encounter for immunizationStart: 01-04-2025 End: 66-97-9275xoeivmorddLCLZ D KROTZERSum[facility] Ambulatory PPGStart: 12-21-2024 End: 23-17-3586Udfjtq Lillian Barragan DO Work Phone: [facility] - Family MedicineComment on above:DM type 2 with diabetic mixed hyperlipidemia ([facility]-HCC); Vitamin D deficiencyStart: 12-07-2024 End: 56-04-8309GafzueLiydvbs Boggs [facility]ITALProMedica [facility] Internal Medicine - Family MedicineComment on above:Decay, teeth; 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, without long-term current use of insulin ([facility])Start: 11-04-2024 End: 34-77-7238JbnwuaNbvigbqPaul Morocho APRN-THERAPEUTIC ACTIVITIES SERVICES WORKER Work Phone: [facility] Internal Medicine - Family MedicineStart: 10-16-2024 End: 34-65-3255OodkkjFacdmziPaul Morocho APRN-THERAPEUTIC ACTIVITIES SERVICES WORKER Work Phone: [facility] Internal Medicine - Family MedicineComment on above:DM type 2 with diabetic mixed hyperlipidemia ([facility]-HCC) Start: 10-13-2024 End: 89-22-0898TiaacyZqouydrPaul Morocho APRN-THERAPEUTIC ACTIVITIES SERVICES WORKER Work Phone: [facility] Internal Medicine - Family MedicineComment on above:Vitamin D deficiency; DM type 2, not at goal ([facility]-HCC); Essential hypertension; DM type 2 with diabetic mixed hyperlipidemia ([facility]-HCC)Start: 09-17-2024 End: 47-32-3344Kfxcuvmk SupportAnika Morocho APRN-THERAPEUTIC ACTIVITIES SERVICES WORKER Work Phone: [facility] Internal Medicine - Family MedicineComment on above:DM type 2 with diabetic mixed hyperlipidemia ([facility]-HCC) (Primary Dx); Vitamin D deficiencyStart: 09-11-2024 End: 02-36-5672jievzjqzhjDumdwvy J Castillo APRN-THERAPEUTIC ACTIVITIES SERVICES WORKER Work Phone: [facility] Internal Medicine - Family MedicineStart: 09-11-2024 End: 28-32-3158Rqwdpas encounter procedureAnika Morocho APRN-THERAPEUTIC ACTIVITIES SERVICES WORKER Work Phone: [facility] Internal Medicine - Family MedicineComment on above:Medicare annual wellness visit, subsequent (Primary Dx) Start: 07-31-2024 End: 97-05-8969Rkadtuulff CareAnika Morocho APRN-CECILLE Work Phone: [facility] - Family MedicineComment on above:Essential hypertension (Primary Dx); Diabetes mellitus treated with injections of non-insulin medication (CMS-HCC); 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) ; Impulse control disorder; Intellectual disabilityStart: 07-30-2024 End: 99-25-9272Fukswo flowsheetSteven A Rusher DPM Work Phone: [facility] PODIATRYStart: 07-30-2024 End: 11-85-3971Prsfya flowsheetSteven A Rusher DPM Work Phone: [facility] PODIATRYStart: 07-30-2024 End: 55-17-7990Wldvkko encounter procedureSteven A Rusher DPM Work Phone: n[facility] PODIATRYComment on above:Dermatophytosis of nail (Primary Dx); Dystrophic nail; Onychocryptosis; Pain around toenail, right foot; Pain around toenail, left footStart: 07-30-2024 End: 70-31-8164aundjibumxWQKCUB A RUSHERNot AvailableStart: 07-02-2024 End: 91-03-3446rvodpdcahiMPKK J BELLEVUE HOSPITALZORAIDAAshtabula County Medical Centertart: 06-18-2024 End: 97-33-7696VrbpaaAgkdqwjPaul Morocho APRN-CECILLE Work Phone: [facility] Family MedicineStart: 06-17-2024 End: 53-25-7070Tfnqzkeb SupportAnika Morocho APRN-CECILLE Work Phone: [facility] - Family MedicineComment on above:DM type 2 with diabetic mixed hyperlipidemia ([facility]CC) (Primary Dx)Start: 06-15-2024 End: 66-89-6354RdyldiJtqynvvPaul Morocho APRN-CECILLE Work Phone: [facility] - Family MedicineStart: 05-27-2024 End: 82-99-1463WbdanhNmqzniePaul Morocho APRN-THERAPEUTIC ACTIVITIES SERVICES WORKER Work Phone: [facility] - Family MedicineComment on above:DM type 2 with diabetic mixed hyperlipidemia ([facility]) Start: 05-08-2024 End: 51-49-3324Mvsoxtxfks CareAnika Morocho APRN-THERAPEUTIC ACTIVITIES SERVICES WORKER Work Phone: [facility] - Family MedicineComment on above:Diabetes mellitus treated with injections of non- insulin medication (CMS-HCC) (Primary Dx); Essential hypertension; 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) ; Impulse control disorder; Intellectual disability; Comprehensive diabetic foot examination, type 2 DM, encounter for ([facility]) Start: 03-26-2024 End: 58-85-3402rydtnypjrxZDBHOZSChanell Diaz [facility] Presbyteriantart: 02-17-2024 End: 25-13-1855Bcihmz flowsheetSteven A Rusher DPM Work Phone: [facility] PODIATRYStart: 02-17-2024 End: 68-87-7252Ubipbp flowsheetSteven A Rusher DPM Work Phone: [facility] PODIATRYStart: 02-17-2024 End: 90-96-9064Mzsnygu encounter procedureSteven A Rusher DPM Work Phone: [facility] PODIATRYComment on above:Dermatophytosis of nail (Primary Dx); Dystrophic nail; Pain around toenail, right foot; Pain around toenail, left footStart: 02-17-2024 End: 47-66-4144esfgdayeilYZBLCU A RUSHERNot AvailableStart: 02-07-2024 End: 52-09-9689Myfngpew SupportAnika Morocho APRN-THERAPEUTIC ACTIVITIES SERVICES WORKER Work Phone: [facility] Medicine - Family MedicineComment on above:Encounter for immunization (Primary Dx)DM type 2 with diabetic mixed hyperlipidemia ([facility]-HCC) (Primary Dx); Impulse control disorder; Intellectual disability; Essential hypertensionStart: 02-03-2024 End: 76-19-7058YbbshuFyizdal J Rashawn DEVINE-THERAPEUTIC ACTIVITIES SERVICES WORKER Work Phone: [facility] - Family MedicineStart: 01-16-2024 End: 61-20-8983Esdblv outpatient visit 15 minutesKristinaugust Malik Rashawn HOUSING AND RESIDENCE LIFE DIRECTOR-THERAPEUTIC ACTIVITIES SERVICES WORKER Work Phone: [facility] Internal Medicine - Family MedicineComment on above:Angioedema, subsequent encounter (Primary Dx)Start: 01-16-2024 End: 85-75-4115gsmzdpslzwUEWEIAYNorth Valley Hospital Ambulatory PPG Start: 01-13-2024 End: 15-39-0989LujivvYyqzfej Helena Rashawn DEVINE-THERAPEUTIC ACTIVITIES SERVICES WORKER Work Phone: [facility] Internal Medicine - Family MedicineComment on above:Decay, teeth; 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, without long-term current use of insulin ([facility])Start: 01-13-2024 End: 59-12-2485Qoxslnfgp encounterTiffany Cardenas [facility] HospitalMeditn [facility] Internal Medicine - Family MedicineComment on above:Er Follow-upStart: 01-12-2024 End: 59-08-7491Bfksueftt department patient visitCrichton Rehabilitation Centertart: 01-07-2024 End: 39-93-7513Qjnqoazb SupportValesandrita Helena Rashawn HOUSING AND RESIDENCE LIFE DIRECTOR-THERAPEUTIC ACTIVITIES SERVICES WORKER Work Phone: [facility] - Family MedicineComment on above:DM type 2 with diabetic mixed hyperlipidemia ([facility]-HCC) (Primary Dx)Start: 11-15-2023 End: 88-30-8098Vmuitr outpatient visit 15 minutesAnika Helena Rashawn HOUSING AND RESIDENCE LIFE DIRECTOR-THERAPEUTIC ACTIVITIES SERVICES WORKER Work Phone: [facility] - Family MedicineComment on above:COVID-19 (Primary Dx)Start: 11-14-2023 End: 11-24-3801nanoxhpqssKsbtaysigVeterans Health Administration Work Phone: Start: 11-14-2023 End: 10-68-7690Xqjiqdj encounter [facility] Work Phone: Start: 11-14-2023 End: 40-15-6282kapgkjjapfQbosudphoNewark Hospital Work Phone: Start: 11-14-2023 End: 64-96-3026Gmrtnbd encounter procedureM[facility] Work Phone: Start: 11-10-2023 End: 38-52-5303Bfynhw encounterMetroHealthStart: 11-04-2023 End: 47-13-8454VuedbfFurpaaiPaul TEJADA Work Phone: [facility] Phys[facility] Internal Medicine - Family MedicineComment on above:Vitamin D deficiency; DM type 2, not at goal ([facility]); Essential hypertension; DM type 2 with diabetic mixed hyperlipidemia ([facility]-HCC)Start: 09-05-2023 End: 77-88-5493Qclzgy OnlyAnika TEJADA Work Phone: [facility] Internal Medicine - Family MedicineComment on above:DM type 2 with diabetic mixed hyperlipidemia ([facility]) Start: 09-04-2023 End: 91-72-0272pecuncxtopJJPFETM J CASTILLOTrinity Health System SystemComment on above: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, without long-term current use of insulin ([facility]) (Primary Dx); DM type 2 with diabetic mixed hyperlipidemia ([facility]) ; Vitamin D deficiency; Bladder spasmsStart: 08-30-2023 End: 28-72-8911svgryhlbotHcemixpChanell TEJADA Work Phone: [facility] Internal Medicine - Family MedicineStart: 08-30-2023 End: 21-87-5742Axxujtc encounter Alessandro TEJADA Work Phone: [facility] Internal Medicine - Family MedicineComment on above:Medicare annual wellness visit, subsequent (Primary Dx); Nocturnal enuresis; Encounter for screening mammogram for malignant neoplasm of breastStart: 08-09-2023 End: 29-91-8830Ajzbmewofv Dominik Morocho APRN-THERAPEUTIC ACTIVITIES SERVICES WORKER Work Phone: [facility] Internal Medicine - Family MedicineComment on above: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, without long-term current use of insulin (CMS-HCC) (Primary Dx); 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) ; Diabetes mellitus treated with injections of non-insulin medication (CMS-HCC) ; Intellectual disability; Impulse control disorderStart: 07-08-2023 End: 08-75-7815Yuecbh outpatient visit 15 minutesMarisabelsandrita Helena TEJADA Work Phone: [facility] Internal Medicine - Family MedicineComment on above: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) (Primary Dx)Start: 52-83-8707Tayrdxqqib Dominik Morocho APRN-THERAPEUTIC ACTIVITIES SERVICES WORKER Work Phone: [facility] Internal Medicine - Family MedicineComment on above: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) (Primary Dx); Essential hypertension; Diabetes mellitus treated with injections of non-insulin medication (CMS-HCC) ; Receptive language disorder; Intellectual disability; Impulse control disorderStart: 82-29-2766Llvodv Fredrick Morocho APRN-THERAPEUTIC ACTIVITIES SERVICES WORKER Work Phone: [facility] Medicine - Family MedicineComment on above: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) Start: 08-63-7521Jrklzw Fredrick Morocho APRN-THERAPEUTIC ACTIVITIES SERVICES WORKER Work Phone: [facility] Internal Medicine - Family MedicineComment on above: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) Start: 90-35-8640Bexekf Fredrick Morocho APRN-THERAPEUTIC ACTIVITIES SERVICES WORKER Work Phone: [facility] Internal Medicine - Family MedicineComment on above: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) (Primary Dx)Start: 10-03-2022 End: 10-91-5181vibriwauadSMXHKDA PROVIDERFacility:METROHealthStart: 10-03-2022 End: 08-62-4766Rpqhpva encounter Kj Leon DMD Work Phone: [facility] DentistryStart: 73-27-3375Heofgd encounterMetroHealthStart: 03-22-2022 End: 94-68-7640lrdoyfpztdVGQEZGH CASTILLOFacility:V0Mrglb: 12-31-2021 End: 83-39-2285expreezrcuGbkcknypc Breault Other [facility] [employer] Other Start: 46-10-0918Wzihlq outpatient visit 15 minutes Telma CamachoFPG Urgent Care ClydeStart: 00-46-0718Qyxdts encounter MetroHealthStart: 38-21-5978rdqkbpwpblMclw Kay Karbon RN, BSNMetroHPresbyterian Medical Center[facility] Start: 08-28-2021 End: 13-60-8159Qfdqjau encounter Sahara Espinoza DDS Work Phone: [facility] DentistryStart: 61-46-2985Dnuhsgbud encounterMeldominick Vito RNMetroHealth Main ORComment on above:Pre-surgical Evaluation (Anesthesia consent obtained)Start: 08-23-2021 End: 18-85-8727myhzgqntrkDLXADXX CASTILLOFacility:K2Ejnrt: 55-82-5369Wvclvblci encounterMeldominick Padron RNMetroHealth Pre Surgical EvaluationComment on above:Pre-surgical Evaluation (Pre-op COVID testing not needed )Start: 79-40-7960Erxeidblp to same day surgery Antony Saravia DDS Work Phone: [facility] DentistryStart: 04-21-2021 End: 80-34-3900vlasnlhwszPNHZQZL CASTILLOFacility:H6Qallj: 78-64-9601Rhrdiih encounter procedureValesandrita Morocho HOUSING AND RESIDENCE LIFE DIRECTOR-THERAPEUTIC ACTIVITIES SERVICES WORKER Work Phone: [facility] Procedures DateProcedureProcedure DetailPerforming ClinicianStart: 51-29-4170Nnskfocodh glycosylated u2uTzms D Jerry HOUSING AND RESIDENCE LIFE DIRECTOR-THERAPEUTIC ACTIVITIES SERVICES WORKER Work Phone: Start: 00-31-9652Rsqjm depression screening assessment Terese Edwards [facility] Work Phone: Start: 10-74-7590Tbqzxxtyjc glycosylated g5zUiawnvwaugust Morocho APRROCKEFELLER WAR [facility] Work Phone: Start: 59-45-4639Mfywb depression screening assessment Anika Morocho APRNMETROPOLITAN STATE HOSPITAL Work Phone: Start: 70-57-9354Nahdmxppqi glycosylated w5dVkamzkkaugust Morocho [facility] Work Phone: Start: 63-21-3470WvhqjrcufyiWjdyhje Castillo [facility] Work Phone: Start: 69-06-0343Xnoicy-up visitFollow-upANIKA MOROCHOStart: 55-98-6366Xdbfx depression screening assessmentAnika Morocho [facility] Work Phone: Start: 83-63-7766Yxorvpxuil glycosylated d2yPshmuchAnika Morocho [facility] Work Phone: Start: 06-79-6044Irvxp dip stick/tablet rgnt non-auto w/o micrscpValeriaugust Morocho APRROCKEFELLER W[facility] Work Phone: Start: 70-78-6153Hjqft depression screening assessment Anika Morocho [facility] Work Phone: Start: 78-63-6877Nrdofvaybx glycosylated n4cDcdflflaugust Morocho [facility] Work Phone: Start: 80-52-5040Jaivc depression screening assessment Anika Morocho [facility] Work Phone: Start: 78-37-8302YaotkeulzvpTpemwmu Castillo HOUSING AND RESIDENCE LIFE DIRECTORROCKEFELLER WAR [facility] Work Phone: Start: 15-85-8348Gsscwfhenvsg [Mass/volume] in Urine by Test stripAnika Morocho APRROCKEFELLER [facility] Work Phone: Start: 75-57-9854Edtcu depression screening assessment Anika Morocho HOUSING AND RESIDENCE LIFE DIRECTORMETROPOLITAN STATE HOSPITAL Work Phone: Start: 38-12-9168VghoqtrcjaoCdjrbai Castillo APRNMETROPOLITAN STATE HOSPITAL Work Phone: Start: 12-02-8332Hyokwzlr retinal eye examAnika Morocho APRNMETROPOLITAN STATE HOSPITAL Work Phone: Plan of Treatment DateCare ActivityDetailAuthorStart: 15-29-4016Ubahlxqvylm [Mass/volume] in Serum or PlasmaCholesterolMetroHealthStart: 63-41-2785Akmtdoprd for malignant neoplasm of colonColonoscopyTrinity Health System SystemStart: 07-14-7949Hqyaj BMI ScreeningAdult BMI ScreeningTrinity Health System SystemStart: 68-74-3997Frwtdwubic ScreeningDepression ScreeningTrinity Health System SystemStart: 84-31-0547Edflevf ScreeningTobacco ScreeningTrinity Health System SystemStart: 54-67-5378Zqdppc Use: DiabeticStatin Use: DiabeticTrinity Health System SystemStart: 71-06-2211Rezvbk Use: DiabeticStatin Use: DiabeticTrinity Health System SystemStart: 44-27-6629Nhzupouany ScreeningDepression ScreeningTrinity Health System SystemStart: 20-71-4645Obbm Risk ScreeningFall Risk ScreeningTrinity Health System SystemStart: 40-17-3395Dmrckwe ScreeningTobacco ScreeningTrinity Health System SystemStart: 47-15-3575Qypcr BMI Follow Up PlanAdult BMI Follow Up PlanTrinity Health System SystemStart: 09-11-2025 Adult BMI ScreeningAdult BMI ScreeningTrinity Health System SystemStart: 08-03-2025 Tobacco ScreeningTobacco ScreeningTrinity Health System SystemStart: 08-02-2025 End: 71-81-7452Jgkldsi encounter hlngpphes77/11/2026 9:30 AM EDT Procedure Visit [facility] [address] [place] [place] [id number] Maximus Perez DPM [address] [place], [place] [id number] [facility] PodiatryStart: 79-51-6926Blrlz BMI ScreeningAdult BMI ScreeningTrinity Health System SystemStart: 11-34-5531Hepxbof ScreeningTobacco ScreeningTrinity Health System SystemStart: 70-23-3376Ncmiozh ScreeningTobacco ScreeningTrinity Health System SystemStart: 16-08-6812Xbcnh BMI ScreeningAdult BMI ScreeningTrinity Health System SystemStart: 31-99-8185Eofwvesu foot examination Diabetic Foot ExamProOhiohealth Van [facility] SystemStart: 04-06-2025 End: 95-54-2316Ojlikee encounter vwrzhyzff96/13/2026 9:00 AM EST Office Visit [facility] [address] [place] [address] Terese Edwards, HOUSING AND RESIDENCE LIFE DIRECTOR-THERAPEUTIC ACTIVITIES SERVICES WORKER [address], [address] [address] [facility] Family MedicineStart: 18-02-5437Iwoylijld for malignant neoplasm of breastMammogramTrinity Health System SystemStart: 02-10-2025 Tobacco ScreeningTobacco ScreeningTrinity Health System SystemStart: 32-85-2145Xjqii BMI ScreeningAdult BMI ScreeningTrinity Health System SystemStart: 02-01-2025 End: 11-39-9607Zfqcbam encounter procedureNOMS FH PODIATRYComment on above: ArrivedStart: 65-63-1527Skrzt BMI Follow Up PlanAdult BMI Follow Up Plan [facility] SystemStart: 17-54-0273Rbgwu BMI ScreeningAdult BMI Screening [facility] SystemStart: 45-42-6686Mefqpucgfd ScreeningDepression Screening [facility] SystemStart: 37-20-1798Ulzg Risk ScreeningFall Risk Screening [facility] SystemStart: 53-51-0449Rbhrlze ScreeningTobacco Screening [facility] SystemStart: 72-05-7153Vhcuy BMI ScreeningAdult BMI Screening [facility] SystemStart: 44-37-2435Wmmsmuy ScreeningTobacco Screening [facility]: 01-04-2025 End: 24-20-7610Dzpixba encounter ouiqlvqhb23/13/2025 1:40 PM EDT Office Visit [facility] [address] [place] [address] Terese Edwards, HOUSING AND RESIDENCE LIFE DIRECTOR-THERAPEUTIC ACTIVITIES SERVICES WORKER [address], [address] [address] [facility] MedicineStart: 30-39-3222XGRRN-19 Vaccine ( season)COVID-19 Vaccine ( season)[facility] Start: 76-58-1175Rusitfiag vaccinationInfluenza VaccineBlanchard Valley Health System Start: 61-92-8494Mglmqge ScreeningTobacco ScreeningNovant Healthtart: 09-17-2024 End: 38-40-6252Pbsjruwt Catmwth9609/17/2024 3:00 PM EDT Clinical Support [facility] Internal [facility] - [facility] [address] [place] [address] Anika Morocho, HOUSING AND RESIDENCE LIFE DIRECTOR-THERAPEUTIC ACTIVITIES SERVICES WORKER [address] [place] [address] [facility] Internal Medicine [facility] MedicineStart: 04-66-6836Hlqjgywjdv Screening Depression ScreeningTrinity Health System SystemStart: 49-80-1265Rxkj Risk Screening Fall Risk ScreeningTrinity Health System SystemStart: 50-13-9519Oylpnyp Screening Tobacco ScreeningTrinity Health System SystemStart: 38-90-9639Nnsdr BMI Follow Up PlanAdult BMI Follow Up PlanNovant Healthtart: 43-14-4771Ffkng BMI ScreeningAdult BMI ScreeningTrinity Health System SystemStart: 07-30-2024 End: 66-21-3482Frqeixo encounter wvxyxlobt97/08/2025 1:00 PM EDT Procedure [facility] [address] [place] [address] Maximus Perez DPM [address] [place] [address] ArrivedNOMS PODIATRYComment on above:ArrivedStart: 51-80-5183Hhitj BMI Follow Up PlanAdult BMI Follow Up PlanTrinity Health System SystemStart: 07-07-2024 Adult BMI ScreeningAdult BMI ScreeningTrinity Health System SystemStart: 07-07-2024 Depression ScreeningDepression ScreeningTrinity Health System SystemStart: 07-07-2024 Fall Risk ScreeningFall Risk ScreeningTrinity Health System SystemStart: 07-07-2024 Tobacco ScreeningTobacco ScreeningNovant Healthtart: 06-17-2024 End: 10-14-5896Bjbfkfir Geszskz2906/17/2024 2:45 PM EDT Clinical Support [facility] [address] [place] [address] [facility]Yhpvno [facility] Internal [facility] - Family Medicine Start: 06-16-2024 End: 46-37-2679Kvucfsm encounter rotzcacgd99/25/2025 10:15 AM EDT Procedure Visit [facility] [address] [place] [phone] Maximus Perez DPM [address] [place] [address] [facility] PODIATRYStart: 02-17-2024 End: 44-30-9072Pkwokoa encounter tylrybdfn47/25/2024 10:15 AM EST Procedure Visit [facility] [address] [place] [phone] Maximus Perez DPM [address] [place], [place] [phone] ArrivedNOMS PODIATRYComment on above:ArrivedStart: 98-62-2219Uzawxec ScreeningTobacco ScreeningNovant Healthtart: 90-95-2131Mpnwf BMI ScreeningAdult BMI ScreeningProWestern Reserve Hospitaltart: 85-19-5717Yupgpxyft for malignant neoplasm of breastMammogramNovant Healthtart: 90-16-2697Ntwdfargx vaccinationInfluenza Vaccine (#1)[facility] Start: 04-19-5057WQELI-19 Vaccine ()COVID-19 Vaccine ()[facility] SystemStart: 81-33-3130LOKEY-19 Vaccine ()COVID-19 Vaccine ()[facility] Start: 78-76-2338Ttzjzlrqc vaccinationInfluenza VaccineBlanchard Valley Health System Start: 51-18-8359Hubia BMI Follow Up PlanAdult BMI Follow Up PlanNovant Healthtart: 52-06-4900Pkibu screening for proteinUrine Microalbumin [facility]art: 09-04-2023 End: 86-01-4149Dboubzcj Ddbaefh0809/04/2023 3:00 PM EDT Clinical Support [facility] Physicians Internal Medicine - Family Medicine [address] [place] [address] [facility] Internal Medicine - Family Medicine Start: 08-30-2023 End: 22-43-2676BRM Breast - bilateral screeningMammography screening bilateral with CAD Imaging Routine Encounter for screening mammogram for malignant neoplasm of breast Expected: 08/30/2023, Expires: 08/29/2024[facility] SystemComment on above:Expected: 08/30/2023, Expires: 08/29/2024Start: 38-46-8877Rotmsqujku ScreeningDepression ScreeningTrinity Health System SystemStart: 51-83-1070Oxsl Risk ScreeningFall Risk ScreeningNovant Healthtart: 18-64-7461Xsdtcehrn vaccinationInfluenza Vaccine (#1)[facility]HealthStart: 14-47-5133GCFTK-19 Vaccine ()COVID-19 Vaccine ()[facility]woodStart: 95-93-5648LKCOT-19 Vaccine ()COVID-19 Vaccine ()[facility] SystemStart: 10-03-2022 End: 72-69-9585Yuxjpip encounter sjbxdsyan58/12/2023 Procedure Visit Dentistry Michelle Luna, [facility] [address] [place], [place] [id number] [facility] DentistryStart: 07-27-2022 Screening for malignant neoplasm of breastMammographyMetroHealthStart: 15-35-1062Eigcufve screeningDibourbon community hospital Ophthalmology [facility] Start: 25-58-4468Paakcrtsy vaccinationInfluenza Vaccine (#1)[facility]woodStart: 08-28-2021 End: 62-96-6441Sjvvkkxip to same day surgery troziz7308/28/2021 Surgery Ambulatory Surgery Jim Espinoza DDS [address] [place] [address] [facility] Ambulatory SurgeryComment on above:DENTAL RESTORATIONSStart: 79-12-1224Msgovxyitw hospital visit by dxlaaziqq72/06/2022 Hospital Encounter Ambulatory Surgery Jim Espinoza DDS [address] [place] [place] [address] [facility] Ambulatory SurgeryStart: 08-28-2021 End: 13-74-0877ZVODGM RESTORATIONSPHE Surgery CenterStart: 08-28-2021 End: 24-92-5142Jpcndwv encounter lrapuyvhj02/06/2022 Procedure Visit Dentistry Jim Espinoza DDS [address] [place] [address] [facility] [place] DentistryStart: 60-17-3537RKZUO-19 Vaccine (4 - Booster for Moderna series)COVID-19 Vaccine (4 - Booster for Moderna series) [facility] FacilityroHealthStart: 18-37-3409ZICWY-19 Vaccine (4 - Booster for Moderna series) COVID-19 Vaccine (4 - Booster for Moderna series)MetroHealthStart: 11-28-2020 DTaP,Tdap and Td Vaccines (8 - Td or Tdap)DTaP,Tdap and Td Vaccines (8 - Td or Tdap)[facility] SystemStart: 20-93-4520Tyfeaql vaccinationMetroHealth Start: 48-22-5627KIOGY-19 Vaccine (3 - Booster for Moderna series)COVID-19 Vaccine (3 - Booster for Moderna series)MetroHealthStart: 05-98-6720Eaghikxwc- zoster vaccine (product)Shingles (RZV) Vaccine (3 of 3)MetroHealthStart: 02-13-2019Medicare Annual Wellness VisitMedicare Annual Wellness VisitTrinity Health System SystemStart: 58-74-9396Zuaqin Wellness Visit (G0439)Annual Wellness Visit (G0439)MetroHealthStart: 41-75-8389Ddubpsqpnahu vaccinationPneumococcal Vaccine(s) (65+ yrs) (1 of 1 - PPSV23)[facility]roHealthStart: 31-73-4950Nyvotfbwvwuk vaccinationMetroHealthStart: 33-05-8333Nwsmtaszw for osteoporosisBone DensitometryMetroHealthStart: 87-85-5401Kdrkkvykenho vaccinationPneumococcal Vaccine(s) (65+ yrs) (2 - PCV)MetroHealthStart: 96-63-2678Oazaciarl B (HBV) Vaccine (optional start 60+ years)Hepatitis B (HBV) Vaccine (optional start 60+ years)MetroHealthStart: 48-03-3234NJF vaccine (optional 60+ years)RSV vaccine (optional 60+ years)MetroHealthStart: 83-35-7420Qikhtaofewo of occult blood in single stool specimenFITMetroHealthStart: 78-32-2133Loeycbegv for malignant neoplasm of breastMammographyMetroHealthStart: 44-55-8967Njljmxmmf for malignant neoplasm of colonCRC ScreeningMetroHealthStart: 99-76-2584Adzhxfgcupx [Mass/volume] in Serum or PlasmaCholesterolMetroHealthStart: 56-91-2773Hpxjsxuce for malignant neoplasm of colonMetroHealthStart: 68-33-4842Ybzchtbyn for malignant neoplasm of breastMammographyMetroHealthStart: 19-19-7150Wtvbcs wellness visitAnnual Wellness Visit (G0438)MetroHealthStart: 77-32-5838Xhfzdjley A (HAV) Vaccine (optional start 19+ years)Hepatitis A (HAV) Vaccine (optional start 19+ years)MetroHealthStart: 67-95-6210Lrumojia foot examinationDiabetic Foot ExamProWestern Reserve Hospitaltart: 78-46-1964Mnhhtjhvi C screeningHepatitis C AntibodyMetroHealthStart: 79-91-4531Jjikdxdve for malignant neoplasm of colon [facility] End: 57-54-4180CYF W Auto Differential panel - BloodCBC auto differential Lab Routine 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) 1 Occurrences starting 04/02/2023 until 04/02/2024[facility] SystemComment on above:1 Occurrences starting 04/02/2023 until 04/02/2024 End: 87-26-8587SVT W Auto Differential panel - BloodCBC auto differential Lab Routine 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) 1 Occurrences starting 06/19/2023 until 06/18/2024[facility] SystemComment on above:1 Occurrences starting 06/19/2023 until 06/18/2024 End: 82-77-7613CMF W Auto Differential panel - BloodCBC auto differential Lab Routine 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) 1 Occurrences starting 09/17/2024 until 09/17/2025[facility] SystemComment on above:1 Occurrences starting 09/17/2024 until 6CBC W Auto Differential panel - BloodCBC auto differential Lab Routine 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) :10 PM [facility] End: 85-19-8560Oqnihmqmhtxgi metabolic 2000 panel - Serum or PlasmaComprehensive metabolic panel Lab Routine DM type 2 with diabetic mixed hyperlipidemia (CMS- HCC) 1 Occurrences starting 04/02/2023 until 04/02/2024[facility] Work Phone: Comment on above:1 Occurrences starting 04/02/2023 until 04/02/2024 End: 70-89-2575Nsbuevvnakhjn metabolic 2000 panel - Serum or PlasmaComprehensive metabolic panel Lab Routine DM type 2 with diabetic mixed hyperlipidemia (CMS- HCC) 1 Occurrences starting 09/04/2023 until 09/03/2024[facility] Comment on above:1 Occurrences starting 09/04/2023 until 09/03/2024omprehensive metabolic 2000 panel - Serum or PlasmaComprehensive metabolic panel Lab Routine 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) 09/04/2023 11:22 PM EDWilson Health End: 96-29-6652Qagdbjpoauhru metabolic 1999 panel - Serum or PlasmaComprehensive metabolic panel Lab Routine DM type 2 with diabetic mixed hyperlipidemia (CMS- HCC) 1 Occurrences starting 06/19/2023 until 06/18/2024[facility] Comment on above:1 Occurrences starting 06/19/2023 until 06/18/2024 End: 77-09-9731Smitlaqbhxwkk metabolic 2000 panel - Serum or PlasmaComprehensive metabolic panel Lab Routine DM type 2 with diabetic mixed hyperlipidemia (CMS- HCC) 1 Occurrences starting 09/17/2024 until 09/17/2025[facility] Center[facility] Work Phone: Comment on above:1 Occurrences starting 09/17/2024 until 09/17/2025omprehensive metabolic 2000 panel - Serum or Plasma Comprehensive metabolic panel Lab Routine 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) 09/17/2024 3:10 PM EDMemorial [facility] HospitalDENTAL RESTORATIONSDENTAL RESTORATIONS Routine scheduled Dental cariesPHE Surgery CenterDENTAL RESTORATIONSDENTAL RESTORATIONS Routine scheduled CariesPHE Surgery Center End: 34-09-1203Hcerhrlzux A1c/Hemoglobin.total in BloodHemoglobin A1c Lab Routine 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) 1 Occurrences starting 04/02/2023 until 04/02/2024[facility] SystemComment on above:1 Occurrences starting 04/02/2023 until 04/02/2024 End: 64-38-0511Hbrjpcqywx A1c/Hemoglobin.total in BloodHemoglobin A1c Lab Routine 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) 1 Occurrences starting 09/04/2023 until 09/03/2024ProUniversity Hospitals Lake West Medical CenterYoungevity International Health SystemComment on above:1 Occurrences starting 09/04/2023 until 09/03/2024Hemoglobin A1c/Hemoglobin.total in BloodHemoglobin A1c Lab Routine 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) 09/04/2023 11:22 PM [facility] [employer] [facility] End: 98-30-7833Ycmilldeyj A1c/Hemoglobin.total in BloodHemoglobin A1c Lab Routine 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) 1 Occurrences starting 06/19/2023 until 06/19/2024[employer] Work Phone: Comment on above:1 Occurrences starting 06/19/2023 until 06/19/2024 End: 60-31-5202Dvsrb 1996 panel - Serum or PlasmaLipid profile Lab Routine 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) 1 Occurrences starting 04/02/2023 until 04/02/2024ProUniversity Hospitals Lake West Medical Centerditlo SystemComment on above:1 Occurrences starting 04/02/2023 until 04/02/2024 End: 94-54-4839Crdgb panelLipid panel Lab Routine 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) 1 Occurrences starting 06/19/2023 until 06/18/2024 [facility] SystemComment on above:1 Occurrences starting 06/19/2023 until 06/18/2024POCT urinalysis dipstick onlyPOCT urinalysis dipstick only Point of Care Testing Routine Nocturnal enuresis Ordered: 08/30/2023[employer]Bio[employer] Work Phone: Comment on above:Ordered: 08/30/2023 End: 50-70-5282Pdczymofous [Units/volume] in Serum or PlasmaTSH Lab Routine 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) 1 Occurrences starting 09/04/2023 until 09/03/2024ProUniversity Hospitals Lake West Medical Centerditlo SystemComment on above:1 Occurrences starting 09/04/2023 until 09/03/2024Thyrotropin [Units/volume] in Serum or PlasmaTSH Lab Routine 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) 09/04/2023 11:22 PM [employer] End: 75-85-3137Ehwyoprmzvn [Units/volume] in Serum or PlasmaTSH Lab Routine DM type 2 with diabetic mixed hyperlipidemia ([facility]-HCC) 1 Occurrences starting 09/17/2024 until 09/17/2025ProUniversity Hospitals Lake West Medical Centerditlo SystemComment on above:1 Occurrences starting 09/17/2024 until 09/17/2025Thyrotropin [Units/volume] in Serum or PlasmaTSH Lab Routine 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 Hospitalditlo SystemComment on above:1 Occurrences starting 09/17/2024 until 09/18/2025Vitamin D 25 hydroxyVitamin D 25 hydroxy Lab Routine Vitamin D deficiency 09/17/2024 3:10 PM 121nexusVitamin D+Metabolites [Mass/volume] in Serum or PlasmaVitamin D 25 hydroxy Lab Routine Vitamin D deficiency 09/04/2023 11:22 PM PRX [facility] Immunizations Immunization DateImmunizationNotesCare GooaegtfOigutsnz11-78-0347Cuzbjfyh trivalent influenza vaccine, adjuvanted, preservative freeTerese Edwards HOUSING AND RESIDENCE LIFE DIRECTOR-THERAPEUTIC ACTIVITIES SERVICES WORKER Work Phone: [facility] [employer] Uanabh66-91-3210Wwwnyrmdxsaq, In Clinic,; Translations: [Drug or medicament (substance)]Terese Edwards HOUSING AND RESIDENCE LIFE DIRECTOR-THERAPEUTIC ACTIVITIES SERVICES WORKER Work Phone: [facility] SystemWhosfl64-49-2972Vmyjvlso trivalent influenza vaccine, adjuvanted, preservative freeValerie Rashawn HOUSING AND RESIDENCE LIFE DIRECTOR-THERAPEUTIC ACTIVITIES SERVICES WORKER Work Phone: [facility] Hospitalditlo Ifroqc61-06-4345Ymqaflyoloug, In Clinic,; Translations: [Drug or medicament (substance)]Anika Morocho HOUSING AND RESIDENCE LIFE DIRECTOR-[facility] Work Phone: [facility] SystemThkoae53-24-9486kaehnuxxu virus vaccine, unspecified formulationValerie Rashawn HOUSING AND RESIDENCE LIFE DIRECTOR-[facility] Work Phone: [facility] SystemTtsuml79-88-4424Llsmmswkw Vaccine, Quadrivalent, AdjuvantedValerie Morocho HOUSING AND RESIDENCE LIFE DIRECTOR-[facility] Work Phone: [facility] SystemLbrrhy15-57-9063Orjfrhhdicde Conjugate 20-valentValerie Morocho HOUSING AND RESIDENCE LIFE DIRECTOR-[facility] Work Phone: [facility] SystemDpfdwk38-88-8799pekiigzhv virus vaccine, unspecified formulationValerie Rashawn HOUSING AND RESIDENCE LIFE DIRECTOR-[facility] Work Phone: [facility] SystemSuecqu92-46-5456Vbjrjwivc, seasonal vaccine, quadrivalent, adjuvanted, 0.5mL dose, preservative free (XMD=630)Jennifer Leon DMD Work Phone: [phone]yKhkuij49-82-0557fyieqjzvp virus vaccine, unspecified formulationJennifer Leon DMD Work Phone: [phone]nPuicqh12-58-0659Xlkptlo Monovalent (12+ yrs) COVID-19 vaccine, mRNA, spike protein, LNP, PF, 100 mcg/0.5 mL (QIU=537)Jennifer Leon DMD Work Phone: [phone]aLpigmx37-93-8436dyeiwfqpm, high dose seasonal, preservative-freeMelissa Snahnican OKKfksyYngepx53-03-4212nqgwmppcw virus vaccine, unspecified lrebnrosibvTrgsjMdmovx79-82-3145GWOFT-70, mRNA, LNP-S, PF, 30mcg/0.3mL DoseValerie Morocho HOUSING AND RESIDENCE LIFE DIRECTOR-[facility] Work Phone: [facility]02-08-2021Moderna Monovalent (12+ yrs) COVID-19 vaccine, mRNA, spike protein, LNP, PF, 100 mcg/0.5 mL (LJP=706)Jennifer Suttonrashel DMD Work Phone: [phone]mWdvyin87-53-7161ZWQKS-94, mRNA, LNP-S, PF, 30mcg/0.3mL DoseValerie Morocho HOUSING AND RESIDENCE LIFE DIRECTOR-THERAPEUTIC ACTIVITIES SERVICES WORKER Work Phone: [facility]01-11-2021Moderna Monovalent (12+ yrs) COVID-19 vaccine, mRNA, spike protein, LNP, PF, 100 mcg/0.5 mL (ERH=513)Jennifer Leon DMD Work Phone: [phone]iRgskkd37-67-8420Oeoicyyix, injectable, high-dose seasonal, quadrivalent, 0.7 mL, preservative free (BLS=285)Bea Rani DDS Work Phone: [phone]aDjkqyf10-70-6063vmepoi vaccine recombinantMadhura Rani DDS Work Phone: [phone]vFyxipy65-63-2037vbrjqbkud, high dose seasonal, preservative-freeMadhura Rani DDS Work Phone: [phone]iGwzbtg52-97-1883vdoati vaccine recombinantValerie Morocho HOUSING AND RESIDENCE LIFE DIRECTOR-THERAPEUTIC ACTIVITIES SERVICES WORKER Work Phone: [facility]09-10-2019zoster vaccine, live Bea Rani DDS Work Phone: [phone]uDetnzm68-96-5564uiwcnsdxt, high dose seasonal, preservative-freeMadhura Rani DDS Work Phone: met166-7026YsgciOscdcn32-733604TfllkNkdtgd60-85-1728cwvcvajvo virus vaccine, unspecified formulationMadhura Rani DDS Work Phone: [phone]qEwccpz44-51-7249idygtofdo, injectable, quadrivalent, preservative freeValerie Morocho HOUSING AND RESIDENCE LIFE DIRECTOR-THERAPEUTIC ACTIVITIES SERVICES WORKER Work Phone: [facility] SystemRjkvop19-15-6536oocerwzzinqe polysaccharide vaccine, 23 valentBea Saravia DDS Work Phone: [phone]uSomidx09-00-1478achpbwd toxoid, reduced diphtheria toxoid, and acellular pertussis vaccine, adsorbedMnerika Saravia DDS Work Phone: [phone]dBbmkyh00-46-6241plbsw kbytawxyy-K0V7-68, injectableMaerika Saravia DDS Work Phone: [phone]nOpsslq90-31-7125iiqxv qoxoewane-B5E3-19, preservative-free, injectableStevdenis Perez DP Work Phone: [facility] HospitalVovkgncpgj38-74-9901nlvutngomhmt polysaccharide vaccine, 23 valentBea Saravia DDS Work Phone: [phone]yKcstfq61-18-4080NI(adult) unspecified formulation Anika Morocho HOUSING AND RESIDENCE LIFE DIRECTOR-THERAPEUTIC ACTIVITIES SERVICES WORKER Work Phone: [facility]10-12-1993tetanus and diphtheria toxoids, adsorbed, preservative free, for adult use (2 Lf of tetanus toxoid and 2 Lf of diphtheria toxoid)Beara Saravia DDS Work Phone: [phone]xXovgku83-61-5391pmagntrsr B vaccine, adult dosage Anika Morocho HOUSING AND RESIDENCE LIFE DIRECTOR-THERAPEUTIC ACTIVITIES SERVICES WORKER Work Phone: [facility]06-20-1983measles, mumps and rubella virus vaccineStrong Memorial Hospitalmaria elena Saravia DDS Work Phone: [phone]oYiywrz74-32-7345YI(adult) unspecified formulation Anika Morocho HOUSING AND RESIDENCE LIFE DIRECTOR-THERAPEUTIC ACTIVITIES SERVICES WORKER Work Phone: [facility]06-20-1983tetanus and diphtheria toxoids, adsorbed, preservative free, for adult use (2 Lf of tetanus toxoid and 2 Lf of diphtheria toxoid)Beara Saravia S Work Phone: [phone]oYodzhq32-94-3668kfsysfztf B vaccine, adult dosage Anika Morocho [facility] Work Phone: [facility]01-13-1980TD(adult) unspecified formulationMarisabelriaugust Morocho [facility] Work Phone: [facility]01-13-1980tetanus and diphtheria toxoids, adsorbed, preservative free, for adult use (2 Lf of tetanus toxoid and 2 Lf of diphtheria toxoid)Bea Saravia S Work Phone: [phone]qMnwtqy47-04-2592awshnbm vaccine, unspecified formulationMnerika Saravia DDS Work Phone: [phone]wYwuzur83-28-8160rtivtgbc (smallpox) vaccine Beara Saravia S Work Phone: [phone]yDleyhp39-14-6584zcyrbfbdfw vaccine, unspecified formulationMnerika Saravia S Work Phone: [facility] Payers DatePayer CategoryPayerPolicy ID2017Medicaid [id number] 1984Medicare [id number] [id number] [id number] [id number] [id number] 2.0.1.596089.3.57[id number] 2.840.1.881846.3.57[id number] 2.0.1.612661.3.57[id number] 2.16.840.1.253981.3.57[id number] 2.16.840.1.357110.3.57[id number] 2.16.840.1.653194.3.57[id number] 2.16.840.1.458072.3.57[id number] 2.16.840.1.748004.3.57[id number] 2.16.840.1.486333.3.57[id number] 2.16840.1.583018.3.57[id number] 2.16.840.1.011689.3.57[id number] 2.840.1.427065.3.57[id number] 2.16.840.1.365788.3.57[id number] 2.840.1.107346.3.57[id number] 2.16840.1.227343.3.57[id number] 2.16840.1.313928.3.57[id number] 2.16.840.1.410549.3.579.2.1259Selw. d. partlow developmental centerSeCharlotte [facility] 97u8cuv0-9rhp-2744-777o-2233fz05g90p Social History DateTypeDetailFacilityTobacco smoking status NHISTobacco smoking consumption unknownMetroHealth Work Phone: Start: 01-25-4004Vak Assigned At [facility] RidgeNot on file MetroHealthStart: 08-25-2021 End: 24-74-5344Unekdxn smoking status NHISNever smoked tobaccoMetroHealthStart: 08-25-2021 End: 60-69-2741Rawrycn use and exposureSmokeless tobacco non-userMetroHealth Start: 08-25-2021 End: 95-85-4831Mmllfax intakeLifetime non-drinker (finding)[facility]HealthStart: 08-25-2021 End: 28-40-3018Tss Assigned At [facility] Hospitaltart: 08-25-2021 End: 75-56-6369Rubohpg of Social functionNovant Healthtart: 81-61-3198Pmd Assigned At [facility] Southtart: 01-16-2024 End: 23-20-2721Psxpngkyt beverage intakeCurrent non-drinker of alcohol (finding) [facility] SystemPrestiamocitart: 18-56-3938Awp hard is it for you to pay for the very basics like food, housing, medical care, and heatingNot hard at all [facility] SystemPrestiamocitart: 56-37-3713DzjFgixop (finding)[facility] Clinical Notes 04-21-2021 to 02-01-2025 Note Date & LzajFpneWairitdz51-28-0635 History of Present illness Narrative* Maximus Perez, DPM - 02/01/2025 9:30 AM EST Images from the original note were not included. Subjective Patient ID: Jose Jha is a 74 y.o. female who presents for DM Foot Care (Established patientpresents today with her caregiver Fidel for diabetic nail care. PCP: Nae JAIME 01/04/25, A1C: 7.7, BS: n/a). HPI Resident of a [facility]; accompanied by her caregiver, Fidel. Chief complaint: Symptomatic toenail deformity. Patient is seen for care of thickened, discolored and deformed toenails; primarily involving bilateral great toes. Fairly chronic condition of multiple years duration. There is pressure discomfort with shoe gear; along with catching and snagging on clothing etc.. There has been no bleeding or drainage. Self care measures not practical. Care staff unable to provide effective care. Palliative care measures have provided favorable transient symptom relief. Risk factors: Advanced visual impairment (legally blind). type II diabetes. ASA therapy. Medical comorbidities. Toenail deformity. Digital and/or shoe trauma and related complications. Medications Current Outpatient Medications: acetaminophen (Tylenol) 325 MG tablet, , Disp: , Rfl: alendronate (Fosamax) 70 MG tablet, Take 70 mg by mouth, Disp: , Rfl: amLODIPine (Norvasc) 10 MG tablet, Take 10 mg by mouth Daily, Disp: , Rfl: ammonium lactate (Lac-Hydrin) 12 % lotion, Apply topically, Disp: , Rfl: aspirin 81 MG EC tablet, Take 81 mg by mouth, Disp: , Rfl: atorvastatin (Lipitor) 10 MG tablet, Take 10 mg by mouth Daily, Disp: , Rfl: Chest Congestion Relief 100 MG/5ML liquid, , Disp: , Rfl: chlorhexidine (Peridex) 0.12 % solution, Take 15 mL by mouth in the morning and 15 mL in the evening., Disp: , Rfl: cholecalciferol (Vitamin D-3) 50 MCG (2000 UT) capsule, Take 2,000 Units by mouth Daily, Disp: , Rfl: escitalopram (Lexapro) 10 MG tablet, Take 10 mg by mouth in the morning., Disp: , Rfl: lisinopril 5 MG tablet, Take 5 mg by mouth Daily, Disp: , Rfl: loperamide (Imodium) 2 MG capsule, 2 mg, Disp: , Rfl: Mounjaro 7.5 MG/0.5ML solution auto-injector, , Disp: , Rfl: risperiDONE (RisperDAL) 0.5 MG tablet, Take 0.5 mg by mouth in the morning and 0.5 mg in the evening., Disp: , Rfl: tolnaftate (Tinactin) 1 % powder, if needed, Disp: , Rfl: Trulicity 3 MG/0.5ML solution pen-injector, Inject 3 mg under the skin 1 (one) time per week, Disp:, Rfl: Allergies Patient has no known allergies. Past Surgical History Past Surgical History: Procedure Laterality Date COLONOSCOPY 06/2010 Family History Family History Problem Relation Name Age of Onset Colon polyps Mother Colon polyps Sister Objective General assessment: Pleasant cooperative disposition. Accompanied by her caregiver, Fidel. Vascular: DP 2/4 bilateral. PT 2/4 bilateral. CFT brisk all digits. Gradient temperature: Warm-cool bilateral. Unremarkable for ankle edema. Neurologic: Tactile and light touch sensation intact. Dermatologic: Skin turgor is good. Web space areas are clean, dry, non-inflamed. Unremarkable for eczema or dermatitis. Bilateral great toes: DSO/pincer toenail deformity: Toenail dystrophy, thickening, elongation, discoloration; the distal margins are incurvated/cryptotic, keratotic, mildly tender, non-inflamed, without drainage. Orthopedic: Range of motion: Functional ankle, subtalar and 1st MTP joint range of motion. Lesion pattern: No forefoot or digital discrete keratotic lesions are noted. Radiology: Assessment/Plan Symptomatic DSO/cryptosis bilateral great toes. Type II diabetes. Legally blind. Plan: Conservative and palliative care measures are indicated. There is no interest expressed in oral or topical therapy; nor is it recommended. Follow up: 6 months recommended. Procedure: Toenail debridement: Aseptic technique: Hand and power instrumentation: Onychodebridement in length and thickness, with curettage of offending cryptotic margins, all periungual debris; providing effective symptom and pressure relief; reducing shoe and digital trauma. This note was created with the assistance of a speech recognition program. While intending to generate a timely document that accurately reflects the content of the visit, no guarantee can be provided that every grammatical or spelling mistake has been or will be identified or corrected. Thank you for your understanding. Maximus Perez DPM documented in this encounterPike County Memorial [id number] History of Present illness Narrative* Terese Edwards, HOUSING AND RESIDENCE LIFE DIRECTOR-THERAPEUTIC ACTIVITIES SERVICES WORKER - 01/04/2025 1:40 PM EDT IM PROGRESS NOTE Patient - Jose Jha Age - 74 y.o. - 1950 ASSESSMENT & PLAN 1. Diabetes mellitus treated with injections of non-insulin medication ([facility]) (Primary) - A1c today 7.7. Previous A1c 8 - continuing to downtrend from 10.3 six months ago. - Lives in [facility] and they check blood glucose 3 times a week and has been as high as 300. - Patient developmentally delayed so she does eat at times foods that she probably should not eat. - Diet is mostly controlled at to [facility] - unable to exercise due to developmental delay - continue continue tirzepatide 10 mg weekly. - We will also continue metformin at this time. - Recheck A1c in 3 months. - POCT Hemoglobin A1c 2. Essential hypertension - normotensive - continue home medications 3. Encounter for immunization - Flu vaccination given today without immediate complication - Influenza, Trivalent, Adjuvanted - Immunization, In Clinic,; Inject 0.5 mL into the appropriate muscle once for 1 dose. flu vac 65up(PF) 45 MCG(15 MCGX3)/0.5 mL Sign this order to satisfy the OSBOP Positive ID requirements for immunization orders. Subjective The following portions of the patient's history were reviewed and updated as appropriate: allergies, current medications, past family history, past medical history, past social history, past surgicalhistory and problem list. DIABETIC VISIT This is a follow up of a pre-existing problem. Patient self monitoring includes finger stick BG checkin times/day. Patient experiences hypoglycemia None. Patient symptoms of hyperglycemia include: none. Current prescribed diet is fairly healthy diet with limited sugars and fats. Patient is following the prescribed diet plan. Home activity includes: The patient does not participate in regular exercise at present.. Patient does not experience numbness or burning in their hands or feet. Patient does not have vision changes. Last eye exam was: August 2024 Patient BP monitoring is not being done. Patient reports: taking medications as instructed, no medication side effects noted, patient does not perform home BP monitoring, no chest pain on exertion, no dyspnea on exertion, no swelling of ankles, no orthostatic dizziness or lightheadedness, no palpitations, and no intermittent claudication symptoms Issues affecting compliance with diabetic self management include: none Review of Systems Reason unable to perform ROS: RN completes ROS due to congative and intellectual disability. Constitutional: Negative for chills and fever. HENT: Negative. Eyes: Negative for visual disturbance. Respiratory: Negative for chest tightness and shortness of breath. Cardiovascular: Negative for chest pain and palpitations. Gastrointestinal: Negative. Endocrine: Negative. Genitourinary: Negative for menstrual problem and pelvic pain. Musculoskeletal: Negative. Skin: Negative. Allergic/Immunologic: Negative. Neurological: Negative for syncope and facial asymmetry. Hematological: Does not bruise/bleed easily. Psychiatric/Behavioral: Negative. Exam BP 131/62 (BP Site: Left Arm, BP Postition: Sitting, BP CUFF SIZE: M (9-13 inches)) Pulse 71 Temp 36.8 C (98.3 F) (Tympanic) Resp 18 Ht 147.3 cm (4' 9.99 ) Wt 61.5 kg (135 lb 9.6 oz) [id number]% BMI 28.35 kg/m Physical Exam Vitals and nursing note reviewed. Constitutional: General: She is not in acute distress. HENT: Mouth/Throat: Mouth: Mucous membranes are moist. Cardiovascular: Rate and Rhythm: Normal rate and regular rhythm. Pulses: Normal pulses. Pulmonary: Effort: Pulmonary effort is normal. Breath sounds: Normal breath sounds. Abdominal: Palpations: Abdomen is soft. Tenderness: There is no abdominal tenderness. Musculoskeletal: Cervical back: Normal range of motion. Right lower leg: No edema. Left lower leg: No edema. Skin: General: Skin is warm and dry. Capillary Refill: Capillary refill takes less than 2 seconds. Neurological: Mental Status: She is alert. Mental status is at baseline. Meds Current Outpatient Medications: acetaminophen (TYLENOL) 325 mg tablet, TAKE 2 TABLETS (650MG) BY MOUTH EVERY 6 HOURS NEEDED FOR MINOR DISCOMFORT OR TEMPERATURE GREATER THAN 101, Disp: 60 tablet, Rfl: 11 alendronate (FOSAMAX) 70 mg tablet, TAKE 1 TABLET BY MOUTH ONCE WEEKLY ON SATURDAY 30 MIN BEFORE 1ST MEAL AND OTHER MEDS W/FULL GLASS WATER AND REMAIN UPRIGHT FOR 1/2 HR (6:30AM), Disp: 4 tablet, Rfl: 11 amLODIPine (NORVASC) 10 mg tablet, Take 1 tablet (10 mg total) by mouth every morning., Disp: 30 tablet, Rfl: 5 ammonium lactate (LAC-HYDRIN) 12 % lotion, APPLY TOPICALLY TO DRY SKIN 2 TIMES DAILY NEEDED, Disp: 225 g, Rfl: 11 aspirin 81 mg, TAKE 1 TABLET BY MOUTH ONCE EVERY DAY FOR HYPERTENSION (8PM), Disp: 90 tablet, Rfl: 1 atorvastatin (LIPITOR) 10 mg tablet, Take 1 tablet (10 mg total) by mouth in the morning., Disp: 30tablet, Rfl: 5 CHEST CONGESTION RELIEF 100 mg/5 mL syrup, TAKE 5 ML BY MOUTH EVERY 6 HOURS NEEDED FOR COUGH, Disp: 473 mL, Rfl: 11 chlorhexidine (PERIDEX) 0.12 % solution, Apply 15 mL to the mouth or throat in the morning and 15 mL before bedtime., Disp: 946 mL, Rfl: 11 cholecalciferol, vitamin D3, 2,000 units capsule, Take 1 capsule (2,000 Units total) by mouth in the morning., Disp: 30 capsule, Rfl: 5 escitalopram (LEXAPRO) 10 mg tablet, Take 1 tablet (10 mg total) by mouth every morning., Disp: 31 tablet, Rfl: 11 eyelid cleanser combination 7 foam, Apply topically. mynor Lynn , crystal, Disp: , Rfl: loperamide (IMODIUM) 2 mg capsule, TAKE 1 CAPSULE BY MOUTH 4 TIMES DAILY NEEDED FOR DIARRHEA (MAX 16MG/24HRS), Disp: 30 capsule, Rfl: 10 metFORMIN XR (GLUCOPHAGE XR) 500 mg 24 hr tablet, Take 1 tablet (500 mg total) by mouth daily with breakfast., Disp: 30 tablet, Rfl: 11 risperiDONE (RisperDAL) 0.5 mg tablet, Take 1 tablet (0.5 mg total) by mouth in the morning and at bedtime., Disp: 62 tablet, Rfl: 11 SITagliptin phosphate (JANUVIA) 100 mg tablet, TAKE 1 TABLET BY MOUTH EVERY MORNING, Disp: 30 tablet, Rfl: 11 tirzepatide (MOUNJARO) 10 mg/0.5 mL pen injector, Inject 10 mg under the skin once a week., Disp: 2mL, Rfl: 11 tolnaftate (TINACTIN) 1 % powder, APPLY TOPICALLY TO AFFECTED AREA OF EXCORIATION UNDER BREAST 2 TIMES DAILY NEEDED, Disp: 45 g, Rfl: 11 Immunization, In Clinic,, Inject 0.5 mL into the appropriate muscle once for 1 dose. flu vac 65up (PF) 45 MCG(15 MCGX3)/0.5 mL Sign this order to satisfy the OSBOP Positive ID requirements for immunization orders., Disp: , Rfl: Lab Results Office Visit on 01/04/2025 Component Date Value Ref Range Status External Poct Hgb A1C 01/04/2025 7.7 (A) 4 - 7 % Final Other Testing No results found. Return in about 3 months (around 04/06/2025) for DM, A1c. ORY Marrero [facility] Physicians Office: [phone] This note is dictated with the use of M*Modal. Please note that this dictation was completed with computer voice recognition software. Quite often unanticipated grammatical, syntax, homophones, and other interpretive errors are inadvertently transcribed by the computer software. Please disregard these errors. Please excuse any errors that have escaped final proofreading. MALLORY Gamino 01/04/25 1430 documented in this encounterBlanchard Valley Health System06-26-2025 History of Present illness Narrative* MALLORY Arnodl - 09/17/2024 3:00 PM EDT A1c today is 8.1%, was 10.3%. Improvement. Will continue Mounjaro 10 mg. Sitagliptin, and metformin. MALLORY Arnold 09/17/24 1631 documented in this encounterBlanchard Valley Health System06-20-2025 History of Present illness Narrative* MALLORY Arnold - 09/11/2024 8:37 AM EDT Subjective SUBJECTIVE: Patient ID: Jose Jha is a 74 y.o. female who presents for a Medicare Annual Wellness exam. Resides at [facility] Accompanied by RN today. Total care provided by staff, including medication administration. Severe cognitive and intellectual delay. Able to verbalize needs at times. Monitored annually and PRN by podiatry. Monitored yearly by psychiatry, Dr. Connors. The following portions of the patient's history were reviewed and updated as appropriate: allergies, current medications, past family history, past medical history, past social history, past surgicalhistory and problem list. Past Surgical History: Procedure Laterality Date COLONOSCOPY COLONOSCOPY N/A 02/19/2022 Performed by Sadi Solis DO at [facility] HYSTERE[facility] Past Medical History: Diagnosis Date Blind Diabetes mellitus ([facility]) Hyperlipidemia Hypertension Impacted cerumen of both ears 12/26/2016 Impulse control disorder Mental retardation Osteopenia Speech and language deficits Immunization History Administered Date(s) Administered COVID-19, mRNA, LNP-S, PF, 100mcg/0.5mL Dose 04/04/2020, 05/02/2020, 02/08/2021 COVID-19, mRNA, LNP-S, PF, 30mcg/0.3mL Dose 04/04/2020, 05/02/2020 H1N1 Inj 03/02/2009 Hepatitis B 05/04/1982, 12/18/1982 Influenza High Dose Preservative Free IM 01/09/2018, 01/05/2019, 01/23/2021 Influenza Vaccine, Quadrivalent, Adjuvanted 02/01/2022, 01/25/2023 Influenza, High-dose, Quadrivalent 01/14/2020 Influenza, Injectable, quadrivalent (PF) 12/31/2016 Influenza, Trivalent, Adjuvanted 02/07/2024 Influenza, Unspecified 12/31/2016 MMR 09/11/1982 Pneumococcal Conjugate 20-valent 01/25/2023 Pneumococcal Polysaccharide 02/08/2006, 02/16/2013 Polio, Unspecified 10/08/1961 Smallpox 07/19/1970 Td (adult), 2 Lf tetanus toxoid, preservative free, adsorbed 04/06/1979, 09/11/1982, 01/03/1993 Td, Unspecified 04/06/1979, 09/11/1982, 01/03/1993 Tdap 11/28/2010 Typhoid, Unspecified 07/16/1972 Zoster Live 12/02/2018 Zoster Vaccine Recombinant 12/02/2018, 02/23/2019 AWV FLOWSHEET : Lifestyle Assessment Fall Risk Have you fallen two or more times in the past year?: No Are you afraid of falling?: No Depression Screening Little interest or pleasure in doing things: Not at all Feeling down, depressed, or hopeless: Not at all Safety Assessment Hearing Assessment Personal Health End of Life Planning Cognitive Screening Clock Drawing Test: Abnormal mini mental exam deferred REVIEW OF SYSTEMS: Review of Systems Reason unable to perform ROS: RN completes ROS due to congative and intellectual disability. Constitutional: Negative for chills and fever. HENT: Negative. Eyes: Negative for visual disturbance. Respiratory: Negative for chest tightness and shortness of breath. Cardiovascular: Negative for chest pain and palpitations. Gastrointestinal: Negative. Endocrine: Negative. Genitourinary: Negative for menstrual problem and pelvic pain. Musculoskeletal: Negative. Skin: Negative. Allergic/Immunologic: Negative. Neurological: Negative for syncope and facial asymmetry. Hematological: Does not bruise/bleed easily. Psychiatric/Behavioral: Negative. Objective PHYSICAL EXAMINATION: Vitals: 09/11/24 0838 BP: 136/62 Pulse: 81 Resp: 18 Temp: 36.1 C (97 F) TempSrc: Oral SpO2: 96% Weight: 63 kg (139 lb) Patient noted to have elevated BMI and the following intervention(s) were applied: encouragement toexercise. Relevant Labs: Lab Results Component Value Date HGBA1C 8.8 (H) 09/04/2023 HGBA1C 6.0 09/09/2020 Lab Results Component Value Date MICROALBUR <0.7 09/12/2020 URINECREAT 31.21 09/12/2020 ALBCREATRA NOT CALCULATED 09/12/2020 Lab Results Component Value Date TSH 1.63 09/04/2023 TSH 1.64 09/09/2020 T4 0.72 09/09/2020 T4 0.87 09/02/2019 Lab Results Component Value Date VITD25 33.5 09/04/2023 VITD25 35.5 03/10/2019 Lab Results Component Value Date WBC 8.1 01/12/2024 RBCCOUNT 3.61 (L) 01/12/2024 HGB 11.3 (L) 01/12/2024 HCT 34.4 (L) 01/12/2024 MCV 95 01/12/2024 MCH 31.2 01/12/2024 MCHC 32.8 01/12/2024 RDW 15.3 (H) 01/12/2024 PLT 197 01/12/2024 MPV 8.6 01/12/2024 No results found for: PSA Lab Results Component Value Date SODIUM 137 01/12/2024 K 4.4 01/12/2024 CL 102 01/12/2024 CO2 26 01/12/2024 ANIONGAP 9 01/12/2024 BUN 24 01/12/2024 GLU 200 (H) 01/12/2024 CALCIUM 8.9 01/12/2024 TOTALPROTEI 8.1 (H) 01/12/2024 ALBUMIN 4.1 01/12/2024 ALKPHOS 67 01/12/2024 AST 23 01/12/2024 ALT 23 01/12/2024 GFR >60 09/09/2020 GFR >60 09/09/2020 Imaging: No results found. Physical Exam Vitals and nursing note reviewed. Constitutional: General: She is not in acute distress. Appearance: She is well-developed. She is not diaphoretic. HENT: Head: Normocephalic and atraumatic. Right Ear: Tympanic membrane and external ear normal. Left Ear: Tympanic membrane and external ear normal. Nose: Nose normal. Mouth/Throat: Mouth: Mucous membranes are moist. Pharynx: No oropharyngeal exudate. Eyes: General: Right eye: No discharge. Left eye: No discharge. Conjunctiva/sclera: Conjunctivae normal. Pupils: Pupils are equal, round, and reactive to light. Neck: Thyroid: No thyromegaly. Vascular: No JVD. Cardiovascular: Rate and Rhythm: Normal rate and regular rhythm. Heart sounds: Normal heart sounds. No murmur heard. No friction rub. No gallop. Pulmonary: Effort: Pulmonary effort is normal. Breath sounds: Normal breath sounds. Abdominal: General: Bowel sounds are normal. There is no distension. Palpations: Abdomen is soft. There is no mass. Tenderness: There is no abdominal tenderness. Musculoskeletal: General: Normal range of motion. Cervical back: Normal range of motion and neck supple. Lymphadenopathy: Cervical: No cervical adenopathy. Skin: General: Skin is warm and dry. Capillary Refill: Capillary refill takes less than 2 seconds. Neurological: General: No focal deficit present. Mental Status: She is alert. Mental status is at baseline. Deep Tendon Reflexes: Reflexes are normal and symmetric. Psychiatric: Mood and Affect: Mood normal. Behavior: Behavior normal. Assessment/Plan ASSESSMENT/PLAN Diagnoses and all orders for this visit: Medicare annual wellness visit, subsequent Colonoscopy screening discussed today. Risk and benefits of procedure explained. Patient last colonoscopy was 2021. Recommendation to repeat in 5 years Mammogram completed March 2024 DEXA due this year Body mass index is 29.05 kg/m . Patient noted to have elevated BMI and the following intervention(s) were applied: Discussed current weight today. Consider healthy food choices, portion control. Avoid sugary beverages and high concentrated sweets. Routine exercise regimen encouraged. Labs per standing orders. No follow-ups on file. There are no Patient Instructions on file for this visit. MALLORY Arnold 09/14/24 1327 documented in this encounterBlanchard Valley [facility] System05-09-2025 History of Present illness Narrative* MALLORY Arnold - 07/31/2024 9:09 AM EDT Patient Name: Jose Jha Date of : 1950 Date of Service: 07/31/2024 Facility: [facility] Jose Jha is a 74 y.o. female seen today at [facility] for Chief Complaint Patient presents with other routine follow up . Resides at [facility]. Accompanied by RN today. Total care provided by staff, including medication administration. Severe cognitive and intellectual delay. Able to verbalize needs. Monitored annually and PRN by podiatry. RN reports Jose is tolerating increased dose of Mounjaro to 10 mg weekly. Metformin was also addedback into her treatment plan. No reports of increased loose stools. States her fasting blood sugarsare below 200 in the AM. Average blood sugars in the evening is typically in the high 200's. Statesthe house has tried offering lower starch, carbohydrate, and concentrated sweet options. Jose doesnot always agree with the meal. She does go out for dinner once weekly and typically eats what she wants, including dessert. Her last A1c was 10.3% before medication changes in May. Past Medical History: Diagnosis Date Blind Diabetes mellitus ([facility]) Hyperlipidemia Hypertension Impacted cerumen of both ears 12/26/2016 Impulse control disorder Mental retardation Osteopenia Speech and language deficits Past Surgical History: Procedure Laterality Date COLONOSCOPY COLONOSCOPY N/A 02/19/2022 Performed by Sadi Solis DO at [facility] HYSTERECTOMY Family History Problem Relation Age of Onset Breast cancer Neg Hx Current Outpatient Medications Medication Sig Dispense Refill acetaminophen (TYLENOL) 325 mg tablet TAKE 2 TABLETS (650MG) BY MOUTH EVERY 6 HOURS NEEDED FOR MINOR DISCOMFORT OR TEMPERATURE GREATER THAN 101 60 tablet 11 alendronate (FOSAMAX) 70 mg tablet TAKE 1 TABLET BY MOUTH ONCE WEEKLY ON SATURDAY 30 MIN BEFORE 1STMEAL AND OTHER MEDS W/FULL GLASS WATER AND REMAIN UPRIGHT FOR 1/2 HR (6:30AM) 5 tablet 11 amLODIPine (NORVASC) 10 mg tablet take 1 tablet by mouth once every day 31 tablet 11 ammonium lactate (LAC-HYDRIN) 12 % lotion APPLY TOPICALLY TO DRY SKIN 2 TIMES DAILY NEEDED 225 g11 aspirin 81 mg TAKE 1 TABLET BY MOUTH ONCE EVERY DAY (8PM) 31 tablet 11 atorvastatin (LIPITOR) 10 mg tablet take 1 tablet by mouth once every day 31 tablet 11 CHEST CONGESTION RELIEF 100 mg/5 mL syrup TAKE 5 ML BY MOUTH EVERY 6 HOURS NEEDED FOR COUGH 473 mL 11 chlorhexidine (PERIDEX) 0.12 % solution SWISH AND SPIT 15 ML BY MOUTH TWICE DAILY *DO NOT SWALLOW* 946 mL 11 cholecalciferol, vitamin D3, 2,000 units capsule TAKE 1 CAPSULE BY MOUTH EVERY MORNING (7AM) 31 capsule 11 escitalopram (LEXAPRO) 10 mg tablet Take 1 tablet (10 mg total) by mouth every morning. 31 tablet 11 eyelid cleanser combination 7 foam Apply topically. mynor Lynn sun loperamide (IMODIUM) 2 mg capsule TAKE 1 CAPSULE BY MOUTH 4 TIMES DAILY NEEDED FOR DIARRHEA ([id number]/24HRS) 30 capsule 10 metFORMIN XR (GLUCOPHAGE XR) 500 mg 24 hr tablet Take 1 tablet (500 mg total) by mouth daily with breakfast. 30 tablet 11 risperiDONE (RisperDAL) 0.5 mg tablet Take 1 tablet (0.5 mg total) by mouth in the morning and at bedtime. 62 tablet 11 SITagliptin phosphate (JANUVIA) 100 mg tablet TAKE 1 TABLET BY MOUTH EVERY MORNING 30 tablet 11 tirzepatide (MOUNJARO) 10 mg/0.5 mL pen injector Inject 10 mg under the skin once a week. 2 mL 11 tolnaftate (TINACTIN) 1 % powder APPLY TOPICALLY TO AFFECTED AREA OF EXCORIATION UNDER BREAST 2 TIMES DAILY NEEDED 45 g 11 No current facility-administered medications for this visit. Allergies: No known drug allergies Code Status: FULL CODE The following portions of the patient's history were reviewed and updated as appropriate: allergies, current medications, past family history, past medical history, past social history, past surgicalhistory, problem list, and medication reconciliation was completed including current medication andpost discharge medication. Review of Systems Reason unable to perform ROS: RN completes ROS due to patient intellectual and cognative delay. Constitutional: Negative for chills and fever. HENT: Negative. Eyes: Negative for visual disturbance. Respiratory: Negative for chest tightness and shortness of breath. Cardiovascular: Negative for chest pain and palpitations. Gastrointestinal: Negative. Endocrine: Negative. Genitourinary: Negative for menstrual problem and pelvic pain. Musculoskeletal: Negative. Skin: Negative. Allergic/Immunologic: Negative. Neurological: Negative for syncope and facial asymmetry. Hematological: Does not bruise/bleed easily. Psychiatric/Behavioral: Negative. Objective BP 127/63 Pulse 64 Temp 36.4 C (97.5 F) (Oral) Resp 18 Wt 63 kg (139 lb) SpO2 96% BMI 29.05 kg/m Physical Exam Vitals and nursing note reviewed. Constitutional: General: She is not in acute distress. Appearance: She is well-developed. She is not diaphoretic. HENT: Head: Normocephalic and atraumatic. Right Ear: Tympanic membrane and external ear normal. Left Ear: Tympanic membrane and external ear normal. Nose: Nose normal. Mouth/Throat: Mouth: Mucous membranes are moist. Pharynx: No oropharyngeal exudate. Eyes: General: Visual field deficit present. Right eye: No discharge. Left eye: No discharge. Conjunctiva/sclera: Conjunctivae normal. Pupils: Pupils are equal, round, and reactive to light. Comments: Legally blind Neck: Thyroid: No thyromegaly. Vascular: No JVD. Cardiovascular: Rate and Rhythm: Normal rate and regular rhythm. Heart sounds: Normal heart sounds. No murmur heard. No friction rub. No gallop. Pulmonary: Effort: Pulmonary effort is normal. Breath sounds: Normal breath sounds. Abdominal: General: Bowel sounds are normal. There is no distension. Palpations: Abdomen is soft. There is no mass. Tenderness: There is no abdominal tenderness. Musculoskeletal: General: Normal range of motion. Cervical back: Normal range of motion and neck supple. Lymphadenopathy: Cervical: No cervical adenopathy. Skin: General: Skin is warm and dry. Neurological: Mental Status: She is alert and oriented to person, place, and time. Deep Tendon Reflexes: Reflexes are normal and symmetric. Psychiatric: Mood and Affect: Mood normal. Behavior: Behavior normal. Thought Content: Thought content normal. Judgment: Judgment normal. Assessment/Plan Summary / Assessment / Plan 1. Essential hypertension 2. Diabetes mellitus treated with injections of non-insulin medication ([facility]) 3. DM type 2 with diabetic mixed hyperlipidemia ([facility]) 4. Impulse control disorder 5. Intellectual disability Type 2 DM RN reports Jose is doing well with Moujaro 10 mg weekly. Last A1c was 10.3% in May. Next A1c will be due in August. Continue sitagliptin 100 mg oral daily and metformin 500 XL oral daily. Metformin was restarted in May. Has history of loose stools with higher doses of metformin. Encourage routine home blood sugar monitoring, diet modification, and exercise regimen. Encourage daily self skin foot checks Normal foot exam today. Does see podiatry. Yearly eye exams Is taking statin Was previously taking BLANCA but stopped due to facial swelling. 2. HTN Blood pressure controlled. 127/63 Continue amlodipine 10 mg oral daily 3. Mixed hyperlipidemia Continue atorvastatin 10 mg oral daily Cholesterol 154, HDL, 68, LDL 74 4. Impulse control disorder Behaviors are at baseline per staff Is monitored by psychiatry, Dr. Connors. Body mass index is 29.05 kg/m . Patient noted to have elevated BMI and the following intervention(s) were applied: Discussed current weight today. Consider healthy food choices, portion control. Avoid sugary beverages and high concentrated sweets. Routine exercise regimen encouraged. There are no Patient Instructions on file for this visit. ELECTRONICALLY SIGNED BY: Anika Morocho APRN-MALLORY Moore 08/03/24 1710 documented in this encounterBlanchard Valley [facility] System05-08-2025 History of Present illness Narrative* Maximus Perez, DPM - 07/30/2024 1:00 PM EDT Images from the original note were not included. Subjective Patient ID: Jose Jha is a 74 y.o. female who presents for Nail care (Jose Jha is a 74 y.o. female. Pt is here today with her caregiver Fidel for diabetic foot care, pt is blind and diabetic. BS: ? A1CL: 8.8/Lv Nae Morocho 06/17/2024 SS). HPI Resident of a [facility]; accompanied by her caregiver, Fidel. Chief complaint: Symptomatic toenail deformity. Patient is seen for care of thickened, discolored and deformed toenails; primarily involving bilateral great toes. Fairly chronic condition of multiple years duration. There is pressure discomfort with shoe gear; along with catching and snagging on clothing etc.. There has been no bleeding or drainage. Self care measures not practical. Care staff unable to provide effective care. Palliative care measures have provided favorable transient symptom relief. Risk factors: Advanced visual impairment (legally blind). type II diabetes. ASA therapy. Medical comorbidities. Toenail deformity. Digital and/or shoe trauma and related complications. Medications Current Outpatient Medications: Mounjaro 7.5 MG/0.5ML solution auto-injector, , Disp: , Rfl: acetaminophen (Tylenol) 325 MG tablet, TAKE 2 TABLETS (650MG) BY MOUTH EVERY 6 HOURS NEEDED FOR MINOR DISCOMFORT OR TEMPERATURE GREATER THAN 101, Disp: , Rfl: alendronate (Fosamax) 70 MG tablet, Take 70 mg by mouth, Disp: , Rfl: amLODIPine (Norvasc) 10 MG tablet, Take 10 mg by mouth Daily, Disp: , Rfl: ammonium lactate (Lac-Hydrin) 12 % lotion, Apply topically, Disp: , Rfl: aspirin 81 MG EC tablet, Take 81 mg by mouth, Disp: , Rfl: atorvastatin (Lipitor) 10 MG tablet, Take 10 mg by mouth Daily, Disp: , Rfl: Chest Congestion Relief 100 MG/5ML liquid, TAKE 5 ML BY MOUTH EVERY 6 HOURS NEEDED FOR COUGH, Disp: , Rfl: chlorhexidine (Peridex) 0.12 % solution, Take 15 mL by mouth in the morning and 15 mL in the evening., Disp: , Rfl: cholecalciferol (Vitamin D-3) 50 MCG (2000 UT) capsule, Take 2,000 Units by mouth Daily, Disp: , Rfl: escitalopram (Lexapro) 10 MG tablet, Take 10 mg by mouth in the morning., Disp: , Rfl: lisinopril 5 MG tablet, Take 5 mg by mouth Daily, Disp: , Rfl: loperamide (Imodium) 2 MG capsule, 2 mg, Disp: , Rfl: risperiDONE (RisperDAL) 0.5 MG tablet, Take 0.5 mg by mouth in the morning and 0.5 mg in the evening., Disp: , Rfl: tolnaftate (Tinactin) 1 % powder, if needed, Disp: , Rfl: Trulicity 3 MG/0.5ML solution pen-injector, Inject 3 mg under the skin 1 (one) time per week, Disp:, Rfl: Allergies Patient has no known allergies. Past Surgical History Past Surgical History: Procedure Laterality Date COLONOSCOPY 06/2010 Family History Family History Problem Relation Name Age of Onset Colon polyps Mother Colon polyps Sister Objective General assessment: Pleasant cooperative disposition. Accompanied by her caregiver, Fidel. Vascular: DP 2/4 bilateral. PT 2/4 bilateral. CFT brisk all digits. Gradient temperature: Warm-cool bilateral. Unremarkable for ankle edema. Neurologic: Tactile and light touch sensation intact. Dermatologic: Skin turgor is good. Web space areas are clean, dry, non-inflamed. Unremarkable for eczema or dermatitis. Bilateral great toes: DSO/pincer toenail deformity: Toenail dystrophy, thickening, elongation, discoloration; the distal margins are incurvated/cryptotic, keratotic, mildly tender, non-inflamed, without drainage. Orthopedic: Range of motion: Functional ankle, subtalar and 1st MTP joint range of motion. Lesion pattern: No forefoot or digital discrete keratotic lesions are noted. Radiology: Assessment/Plan Symptomatic DSO/cryptosis bilateral great toes. Type II diabetes. Legally blind. Plan: Conservative and palliative care measures are indicated. There is no interest expressed in oral or topical therapy; nor is it recommended. Procedure: Toenail debridement: Aseptic technique: Hand and power instrumentation: Onychodebridement in length and thickness, with curettage of any cryptotic margins, all periungual debris; providingeffective symptom and pressure relief; reducing shoe and digital trauma. This note was created with the assistance of a speech recognition program. While intending to generate a timely document that accurately reflects the content of the visit, no guarantee can be provided that every grammatical or spelling mistake has been or will be identified or corrected. Thank you for your understanding. Maximus Perez DPM documented in this encounterPike County Memorial [id number] History of Present illness Narrative* MALLORY Arnold - 06/17/2024 2:45 PM EDT A1c is 10.3%, was 8.7% Spoke with facility RN regarding increase in A1c. She does admit patient has been eating sweets. Start metformin 500 mg oral daily. Increase Monjaro to 10 mg subcutaneous weekly. Continue [id number] mg oral daily. MALLORY Arnold 06/17/24 1540 documented in this encounterBlanchard Valley [facility] System02-14-2025 History of Present illness Narrative* MALLORY Arnold - 05/08/2024 11:59 PM EST Patient Name: Jose Jha Date of : 1950 Date of Service: 05/08/2024 Facility: [facility] Jose Jha is a 74 y.o. female seen today at [facility] for Chief Complaint Patient presents with routine follow up . Resides at [facility] Accompanied by RN today. Total care provided by staff, including medication administration. Severe cognitive and intellectual delay. Able to verbalize needs. Monitored annually and PRN by podiatry. RN reports Jose is doing well with Moujaro. Blood sugars are trending down. Was previously taking Trulicity but A1c was rising. Past Medical History: Diagnosis Date Blind Diabetes mellitus ([facility]) Hyperlipidemia Hypertension Impacted cerumen of both ears 12/26/2016 Impulse control disorder Mental retardation Osteopenia Speech and language deficits Past Surgical History: Procedure Laterality Date COLONOSCOPY COLONOSCOPY N/A 02/19/2022 Performed by Sadi Solis DO at [facility] Family History Problem Relation Age of Onset Breast cancer Neg Hx Current Outpatient Medications Medication Sig Dispense Refill acetaminophen (TYLENOL) 325 mg tablet TAKE 2 TABLETS (650MG) BY MOUTH EVERY 6 HOURS NEEDED FOR MINOR DISCOMFORT OR TEMPERATURE GREATER THAN 101 60 tablet 11 alendronate (FOSAMAX) 70 mg tablet TAKE 1 TABLET BY MOUTH ONCE WEEKLY ON SATURDAY 30 MIN BEFORE 1STMEAL AND OTHER MEDS W/FULL GLASS WATER AND REMAIN UPRIGHT FOR 1/2 HR (6:30AM) 5 tablet 11 amLODIPine (NORVASC) 10 mg tablet take 1 tablet by mouth once every day 31 tablet 11 ammonium lactate (LAC-HYDRIN) 12 % lotion APPLY TOPICALLY TO DRY SKIN 2 TIMES DAILY NEEDED 225 g11 aspirin 81 mg TAKE 1 TABLET BY MOUTH ONCE EVERY DAY (8PM) 31 tablet 11 atorvastatin (LIPITOR) 10 mg tablet take 1 tablet by mouth once every day 31 tablet 11 CHEST CONGESTION RELIEF 100 mg/5 mL syrup TAKE 5 ML BY MOUTH EVERY 6 HOURS NEEDED FOR COUGH 473 mL 11 chlorhexidine (PERIDEX) 0.12 % solution SWISH AND SPIT 15 ML BY MOUTH TWICE DAILY *DO NOT SWALLOW* 946 mL 11 cholecalciferol, vitamin D3, 2,000 units capsule TAKE 1 CAPSULE BY MOUTH EVERY MORNING (7AM) 31 capsule 11 escitalopram (LEXAPRO) 10 mg tablet Take 1 tablet (10 mg total) by mouth every morning. 31 tablet 11 eyelid cleanser combination 7 foam Apply topically. mynor Lynn sun loperamide (IMODIUM) 2 mg capsule TAKE 1 CAPSULE BY MOUTH 4 TIMES DAILY NEEDED FOR DIARRHEA (GJS18CH/24HRS) 30 capsule 11 risperiDONE (RisperDAL) 0.5 mg tablet Take 1 tablet (0.5 mg total) by mouth in the morning and at bedtime. 60 tablet 2 SITagliptin phosphate (JANUVIA) 100 mg tablet Take 1 tablet (100 mg total) by mouth in the morning.30 tablet 11 tirzepatide (MOUNJARO) 7.5 mg/0.5 mL pen injector Inject 7.5 mg under the skin once a week. 2 mL 11 tolnaftate (TINACTIN) 1 % powder APPLY TOPICALLY TO AFFECTED AREA OF EXCORIATION UNDER BREAST 2 TIMES DAILY NEEDED 45 g 11 No current facility-administered medications for this visit. Allergies: No known drug allergies Code Status: FULL CODE The following portions of the patient's history were reviewed and updated as appropriate: allergies, current medications, past family history, past medical history, past social history, past surgicalhistory, problem list, and medication reconciliation was completed including current medication andpost discharge medication. Review of Systems Reason unable to perform ROS: ROS COMPLETED BY FACILITY RN due to patient cognative and intellectual delay. Constitutional: Negative for chills and fever. HENT: Negative. Eyes: Negative for visual disturbance. Respiratory: Negative for chest tightness and shortness of breath. Cardiovascular: Negative for chest pain and palpitations. Gastrointestinal: Negative. Endocrine: Negative. Genitourinary: Negative for menstrual problem and pelvic pain. Musculoskeletal: Negative. Skin: Negative. Allergic/Immunologic: Negative. Neurological: Negative for syncope and facial asymmetry. Hematological: Does not bruise/bleed easily. Psychiatric/Behavioral: Negative. Objective BP 132/86 Pulse 79 Temp 36.8 C (98.3 F) (Temporal) Resp 17 Wt 64 kg (141 lb) SpO2 98% BMI 29.47 kg/m Physical Exam Vitals and nursing note reviewed. Constitutional: General: She is not in acute distress. Appearance: She is well-developed. She is not diaphoretic. HENT: Head: Normocephalic and atraumatic. Right Ear: Tympanic membrane and external ear normal. Left Ear: Tympanic membrane and external ear normal. Nose: Nose normal. Mouth/Throat: Mouth: Mucous membranes are moist. Pharynx: No oropharyngeal exudate. Eyes: General: Right eye: No discharge. Left eye: No discharge. Conjunctiva/sclera: Conjunctivae normal. Pupils: Pupils are equal, round, and reactive to light. Comments: Legally blind both eyes Neck: Thyroid: No thyromegaly. Vascular: No JVD. Cardiovascular: Rate and Rhythm: Normal rate and regular rhythm. Heart sounds: Normal heart sounds. No murmur heard. No friction rub. No gallop. Pulmonary: Effort: Pulmonary effort is normal. Breath sounds: Normal breath sounds. Abdominal: General: Bowel sounds are normal. There is no distension. Palpations: Abdomen is soft. There is no mass. Tenderness: There is no abdominal tenderness. Musculoskeletal: General: Normal range of motion. Cervical back: Normal range of motion and neck supple. Lymphadenopathy: Cervical: No cervical adenopathy. Skin: General: Skin is warm and dry. Capillary Refill: Capillary refill takes less than 2 seconds. Neurological: Mental Status: She is alert and oriented to person, place, and time. Deep Tendon Reflexes: Reflexes are normal and symmetric. Psychiatric: Mood and Affect: Mood normal. Behavior: Behavior normal. Diabetic foot exam: Visual exam was normal without lesions. Left: Pulses Dorsalis Pedis: present Vibratory sensation normal Filament test present Right: Pulses Dorsalis Pedis: present Vibratory sensation normal Filament test present Assessment/Plan Summary / Assessment / Plan 1. Essential hypertension 2. Diabetes mellitus treated with injections of non-insulin medication ([facility]) 3. DM type 2 with diabetic mixed hyperlipidemia ([facility]) 4. Impulse control disorder 5. Intellectual disability 6. Comprehensive diabetic foot examination, type 2 DM, encounter for ([facility]) Type 2 DM RN reports Jose is doing well with Paytonphillip. Blood sugars are trending down. Was previously taking Trulicity but A1c was rising. Actos was discontinued due to edema of lower extremities. This has resolved. Last A1c was 8.7%. Next due in May Encourage routine home blood sugar monitoring, diet modification, and exercise regimen. Encourage daily self skin foot checks Normal foot exam today. Does see podiatry. Yearly eye exams Is taking statin Was previously taking BLANCA but stopped due to facial swelling. 2. HTN Blood pressure controlled Continue amlodipine 10 mg oral daily 3. Mixed hyperlipidemia Continue atorvastatin 10 mg oral daily Cholesterol : HDL 2.3, LDL 74 4. Impulse control disorder Behaviors are at baseline per staff Is monitored by psychiatry, Dr. Cononrs. Body mass index is 29.47 kg/m . Patient noted to have elevated BMI and the following intervention(s) were applied: Discussed current weight today. Consider healthy food choices, portion control. Avoid sugary beverages and high concentrated sweets. Routine exercise regimen encouraged. There are no Patient Instructions on file for this visit. ELECTRONICALLY SIGNED BY: MALLORY Arnold APRN-CNP 05/12/24 0926 documented in this encounterBlanchard Valley Health System11-25-2024 History of Present illness Narrative* Maximus Perez, DPM - 02/17/2024 10:15 AM EST Images from the original note were not included. Subjective Patient ID: Jose Jha is a 74 y.o. female who presents for DM Foot Care (Pt is here today with her caregiver for diabetic foot care, pt is blind and diabetic. /BS: ? A1CL: 8.8/Lv Nae Morocho 01-16-2024/SS: ). HPI Resident of a [facility]; accompanied by her caregiver, Mally. Chief complaint: Patient is seen for care of thickened, discolored and deformed toenails; primarilyinvolving bilateral great toes. Fairly chronic condition of multiple years duration. There is pressure discomfort with shoe gear; along with catching and snagging on clothing etc.. There has been no bleeding or drainage. Self care measures not practical. Care staff unable to provide effective care. Palliative care measures have provided favorable transient symptom relief. Risk factors: Advanced visual impairment (legally blind). type II diabetes. ASA therapy. Medical comorbidities. Toenail deformity. Digital and/or shoe trauma and related complications. Medications Current Outpatient Medications: acetaminophen (Tylenol) 325 MG tablet, TAKE 2 TABLETS (650MG) BY MOUTH EVERY 6 HOURS NEEDED FOR MINOR DISCOMFORT OR TEMPERATURE GREATER THAN 101, Disp: , Rfl: alendronate (Fosamax) 70 MG tablet, Take 70 mg by mouth, Disp: , Rfl: amLODIPine (Norvasc) 10 MG tablet, Take 10 mg by mouth Daily, Disp: , Rfl: ammonium lactate (Lac-Hydrin) 12 % lotion, Apply topically, Disp: , Rfl: aspirin 81 MG EC tablet, Take 81 mg by mouth, Disp: , Rfl: atorvastatin (Lipitor) 10 MG tablet, Take 10 mg by mouth Daily, Disp: , Rfl: Chest Congestion Relief 100 MG/5ML liquid, TAKE 5 ML BY MOUTH EVERY 6 HOURS NEEDED FOR COUGH, Disp: , Rfl: chlorhexidine (Peridex) 0.12 % solution, Take 15 mL by mouth in the morning and 15 mL in the evening., Disp: , Rfl: cholecalciferol (Vitamin D-3) 50 MCG (2000 UT) capsule, Take 2,000 Units by mouth Daily, Disp: , Rfl: escitalopram (Lexapro) 10 MG tablet, Take 10 mg by mouth in the morning., Disp: , Rfl: lisinopril 5 MG tablet, Take 5 mg by mouth Daily, Disp: , Rfl: loperamide (Imodium) 2 MG capsule, 2 mg, Disp: , Rfl: risperiDONE (RisperDAL) 0.5 MG tablet, Take 0.5 mg by mouth in the morning and 0.5 mg in the evening., Disp: , Rfl: tolnaftate (Tinactin) 1 % powder, if needed, Disp: , Rfl: Trulicity 3 MG/0.5ML solution pen-injector, Inject 3 mg under the skin 1 (one) time per week, Disp:, Rfl: Allergies Patient has no known allergies. Past Surgical History Past Surgical History: Procedure Laterality Date COLONOSCOPY 06/2010 Family History Family History Problem Relation Name Age of Onset Colon polyps Mother Colon polyps Sister Objective General assessment: Pleasant cooperative disposition. Accompanied by her caregiver, Mally. Vascular: DP 2/4 bilateral. PT 2/4 bilateral. CFT brisk all digits. Gradient temperature: Warm-cool bilateral. Unremarkable for ankle edema. Neurologic: Tactile and light touch sensation intact. Dermatologic: Skin turgor is good. Web space areas are clean, dry, non-inflamed. Unremarkable for eczema or dermatitis. Bilateral great toes: DSO/pincer toenail deformity: Toenail dystrophy, thickening, elongation, discoloration; the distal margins are incurvated/cryptotic, mildly tender, non-inflamed, without drainage. Orthopedic: Range of motion: Functional ankle, subtalar and 1st MTP joint range of motion. Lesion pattern: No forefoot or digital discrete keratotic lesions are noted. Radiology: Assessment/Plan Symptomatic DSO/cryptosis bilateral great toes. Type II diabetes. Legally blind. Plan: Conservative and palliative care measures are indicated. There is no interest expressed in oral or topical therapy; nor is it recommended. Procedure: Toenail debridement: Aseptic technique: Hand and power instrumentation: Onychodebridement in length and thickness, with curettage of any cryptotic margins, all periungual debris; providingeffective symptom and pressure relief; reducing shoe and digital trauma. This note was created with the assistance of a speech recognition program. While intending to generate a timely document that accurately reflects the content of the visit, no guarantee can be provided that every grammatical or spelling mistake has been or will be identified or corrected. Thank you for your understanding. Maximus Perez DPM documented in this encounterPike County Memorial [id number] History of Present illness Narrative* Anika Morocho, [employer] WORKER - 02/07/2024 11:59 PM EST Patient Name: Jose Jha Date of : 1950 Date of Service: 02/07/2024 Facility: [facility] Jose Jha is a 74 y.o. female seen today at [facility] for Chief Complaint Patient presents with routine follow up Resides at [facility] [place] Accompanied by RN today. Total care provided by staff, including medication administration. Severe cognitive and intellectual delay. Able to verbalize needs. Monitored by psychiatry and podiatry. Today, RN reports facial swelling has resolved. Was seen in the ER and in the office for complaint.Lisinopril was discontinued. Actos was also stopped. RN states blood sugars have been stable. States she has gained weight, currently 153, was 136 in June. Otherwise, is doing well. She presents for her follow-up diabetic visit. She has type 2 diabetes mellitus. Her disease coursehas been stable. There are no hypoglycemic associated symptoms. There are no diabetic associated symptoms. Pertinent negatives for diabetes include no chest pain. There are no hypoglycemic complications. Symptoms are stable. There are no diabetic complications. Risk factors for coronary artery disease include diabetes mellitus, dyslipidemia, family history, hypertension, obesity, post-menopausal and sedentary lifestyle. Current diabetic treatment includes (Trulicity). She is compliant with treatment all of the time. Her weight is stable. She is following a low fat/cholesterol diet. Meal planning includes avoidance of concentrated sweets. She participates in exercise intermittently. Her homeblood glucose trend is fluctuating minimally. Her breakfast blood glucose range is generally 110-130 mg/dl. An BLANCA inhibitor/angiotensin II receptor mandie is being taken. She sees a bowling ball engraver.Eye exam is current. Hypertension This is a chronic problem. The current episode started more than 1 year ago. The problem is controlled. Pertinent negatives include no chest pain, palpitations or shortness of breath. There are no associated agents to hypertension. Risk factors for coronary artery disease include diabetes mellitus,dyslipidemia, family history, obesity and post-menopausal state. Past treatments include BLANCA inhibitors. The current treatment provides significant improvement. Hyperlipidemia This is a chronic problem. The current episode started more than 1 year ago. The problem is controlled. Exacerbating diseases include diabetes and obesity. There are no known factors aggravating her hyperlipidemia. Pertinent negatives include no chest pain or shortness of breath. Current antihyperlipidemic treatment includes statins. The current treatment provides significant improvement of lipids. There are no compliance problems. Past Medical History: Diagnosis Date Blind Diabetes mellitus ([facility]) Hyperlipidemia Hypertension Impacted cerumen of both ears 12/26/2016 Impulse control disorder Mental retardation Osteopenia Speech and language deficits Past Surgical History: Procedure Laterality Date COLONOSCOPY COLONOSCOPY N/A 02/19/2022 Performed by Sadi Solis DO at [facility] Family History Problem Relation Age of Onset Breast cancer Neg Hx Current Outpatient Medications Medication Sig Dispense Refill acetaminophen (TYLENOL) 325 mg tablet TAKE 2 TABLETS (650MG) BY MOUTH EVERY 6 HOURS NEEDED FOR MINOR DISCOMFORT OR TEMPERATURE GREATER THAN 101 60 tablet 11 alendronate (FOSAMAX) 70 mg tablet TAKE 1 TABLET BY MOUTH ONCE WEEKLY ON SATURDAY 30 MIN BEFORE 1STMEAL AND OTHER MEDS W/FULL GLASS WATER AND REMAIN UPRIGHT FOR 1/2 HR (6:30AM) 5 tablet 11 amLODIPine (NORVASC) 10 mg tablet take 1 tablet by mouth once every day 31 tablet 11 ammonium lactate (LAC-HYDRIN) 12 % lotion APPLY TOPICALLY TO DRY SKIN 2 TIMES DAILY NEEDED 225 g11 aspirin 81 mg TAKE 1 TABLET BY MOUTH ONCE EVERY DAY (8PM) 31 tablet 11 atorvastatin (LIPITOR) 10 mg tablet take 1 tablet by mouth once every day 31 tablet 11 CHEST CONGESTION RELIEF 100 mg/5 mL syrup TAKE 5 ML BY MOUTH EVERY 6 HOURS NEEDED FOR COUGH 473 mL 11 chlorhexidine (PERIDEX) 0.12 % solution SWISH AND SPIT 15 ML BY MOUTH TWICE DAILY *DO NOT SWALLOW* 946 mL 11 cholecalciferol, vitamin D3, 2,000 units capsule TAKE 1 CAPSULE BY MOUTH EVERY MORNING (7AM) 31 capsule 11 dulaglutide (TRULICITY) 4.5 mg/0.5 mL pen injector Inject 4.5 mg under the skin once a week. 2 mL 11 escitalopram (LEXAPRO) 10 mg tablet Take 1 tablet (10 mg total) by mouth every morning. 31 tablet 11 eyelid cleanser combination 7 foam Apply topically. mynor Lynn sun loperamide (IMODIUM) 2 mg capsule TAKE 1 CAPSULE BY MOUTH 4 TIMES DAILY NEEDED FOR DIARRHEA (MNV21TT/24HRS) 30 capsule 11 risperiDONE (RisperDAL) 0.5 mg tablet Take 1 tablet (0.5 mg total) by mouth in the morning and at bedtime. 60 tablet 5 SITagliptin phosphate (JANUVIA) 100 mg tablet Take 1 tablet (100 mg total) by mouth in the morning.30 tablet 11 tolnaftate (TINACTIN) 1 % powder APPLY TOPICALLY TO AFFECTED AREA OF EXCORIATION UNDER BREAST 2 TIMES DAILY NEEDED 45 g 11 No current facility-administered medications for this visit. Allergies: No known drug allergies Code Status: FULL CODE The following portions of the patient's history were reviewed and updated as appropriate: allergies, current medications, past family history, past medical history, past social history, past surgicalhistory, problem list, and medication reconciliation was completed including current medication andpost discharge medication. Review of Systems Reason unable to perform ROS: RN completes ROS due to cognative delay. Constitutional: Negative for chills and fever. HENT: Negative. Eyes: Negative for visual disturbance. Respiratory: Negative for chest tightness and shortness of breath. Cardiovascular: Negative for chest pain and palpitations. Gastrointestinal: Negative. Endocrine: Negative. Genitourinary: Negative for menstrual problem and pelvic pain. Musculoskeletal: Negative. Skin: Negative. Allergic/Immunologic: Negative. Neurological: Negative for syncope and facial asymmetry. Hematological: Does not bruise/bleed easily. Psychiatric/Behavioral: Negative. Objective BP 136/69 Pulse 58 Wt 69.4 kg (153 lb) SpO2 94% BMI 31.98 kg/m Physical Exam Vitals and nursing note reviewed. Constitutional: General: She is not in acute distress. Appearance: She is well-developed. She is not diaphoretic. HENT: Head: Normocephalic and atraumatic. Right Ear: Tympanic membrane and external ear normal. Left Ear: Tympanic membrane and external ear normal. Nose: Nose normal. Mouth/Throat: Mouth: Mucous membranes are moist. Pharynx: No oropharyngeal exudate. Eyes: General: Right eye: No discharge. Left eye: No discharge. Conjunctiva/sclera: Conjunctivae normal. Pupils: Pupils are equal, round, and reactive to light. Neck: Thyroid: No thyromegaly. Vascular: No JVD. Cardiovascular: Rate and Rhythm: Normal rate and regular rhythm. Heart sounds: Normal heart sounds. No murmur heard. No friction rub. No gallop. Pulmonary: Effort: Pulmonary effort is normal. Breath sounds: Normal breath sounds. Abdominal: General: Bowel sounds are normal. There is no distension. Palpations: Abdomen is soft. There is no mass. Tenderness: There is no abdominal tenderness. Musculoskeletal: General: Normal range of motion. Cervical back: Normal range of motion and neck supple. Lymphadenopathy: Cervical: No cervical adenopathy. Skin: General: Skin is warm and dry. Capillary Refill: Capillary refill takes less than 2 seconds. Neurological: Mental Status: She is alert. Mental status is at baseline. Deep Tendon Reflexes: Reflexes are normal and symmetric. Psychiatric: Mood and Affect: Mood normal. Behavior: Behavior normal. Assessment/Plan Summary / Assessment / Plan 1. 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) 2. Impulse control disorder 3. Intellectual disability 4. Essential hypertension 1. Type 2 DM Last A1c 6.2 (was 8.2) in December. Repeat in March. Continue Trulicity 3 mg weekly and Januvia Actos was discontinued due to lower leg swelling and possibly weight gain contributor? Encourage routine home blood sugar monitoring, diet modification, and exercise regimen. Monitored by podiatry foot exams and care (Dr. Perez) Yearly eye care, [facility] Patient is legally blind in both eyes Is taking statin. BLANCA was discontinued due to potential cause of angioedema last month 2. HTN Controlled Continue amlodipine 3. Hyperlipidemia Controlled Continue atorvastatin 4. Impulse control with history of depression Monitored by Dr. Connors, psychiatry Continue Abilify, Risperidone, and lexapro Behaviors are at Jose's baseline 5. Intellectual disability Transportation, meal preparation, ADL assistance, and medication administration per staff Influenza vaccine was administered today. There are no Patient Instructions on file for this visit. ELECTRONICALLY SIGNED BY: MALLORY Arnold APRN-CNP 02/11/24 0916 documented in this encounterBlanchard Valley [facility] System11-15-2024 History of Present illness Narrative* Tia Singh CMA - 02/07/2024 8:00 AM EST Given by Anika Morocho at [facility] documented in this encounterBlanchard Valley Health System10-24-2024 History of Present illness Narrative* MALLORY Arnold - 01/16/2024 2:40 PM EDT Images from the original note were not included. [address] [facility] [id number] SUBJECTIVE: Patient ID: Jose Jha is a 73 y.o. female. Chief Complaint Patient presents with Follow-up Hospital 01/11 swollen face Jose is accompanied by her care provider today. Resides at local [facility]. Developed swelling in face and lips approximately one week ago. Was taken to ER for further evaluation. Is currently taking Prednisone and loratadine . Care provider feels swelling of face is approximately 50% improved since ER visit. Follow-up Pertinent negatives include no chest pain, chills or fever. The following portions of the patient's history were reviewed and updated as appropriate: allergies, current medications, past family history, past medical history, past social history, past surgicalhistory and problem list. Past Surgical History: Procedure Laterality Date COLONOSCOPY COLONOSCOPY N/A 02/19/2022 Performed by Sadi Solis DO at [facility] HYSTERECTOMY Past Medical History: Diagnosis Date Blind Diabetes mellitus ([facility]) Hyperlipidemia Hypertension Impacted cerumen of both ears 12/26/2016 Impulse control disorder Mental retardation Osteopenia Speech and language deficits Immunization History Administered Date(s) Administered COVID-19, mRNA, LNP-S, PF, 100mcg/0.5mL Dose 04/04/2020, 05/02/2020, 02/08/2021 COVID-19, mRNA, LNP-S, PF, 30mcg/0.3mL Dose 04/04/2020, 05/02/2020 H1N1 Inj 03/02/2009 Hepatitis B 05/04/1982, 12/18/1982 Influenza High Dose Preservative Free IM 01/09/2018, 01/05/2019, 01/23/2021 Influenza Vaccine, Quadrivalent, Adjuvanted 02/01/2022, 01/25/2023 Influenza, High-dose, Quadrivalent 01/14/2020 Influenza, Injectable, quadrivalent (PF) 12/31/2016 Influenza, Unspecified 12/31/2016 MMR 09/11/1982 Pneumococcal Conjugate 20-valent 01/25/2023 Pneumococcal Polysaccharide 02/08/2006, 02/16/2013 Polio, Unspecified 10/08/1961 Smallpox 07/19/1970 Td (adult), 2 Lf tetanus toxoid, preservative free, adsorbed 04/06/1979, 09/11/1982, 01/03/1993 Td, Unspecified 04/06/1979, 09/11/1982, 01/03/1993 Tdap 11/28/2010 Typhoid, Unspecified 07/16/1972 Zoster Live 12/02/2018 Zoster Vaccine Recombinant 12/02/2018, 02/23/2019 REVIEW OF SYSTEMS: Review of Systems Reason unable to perform ROS: ROS completed by care provider due to intellectual delay. Constitutional: Negative for chills and fever. HENT: Negative. Swollen face Eyes: Negative for visual disturbance. Respiratory: Negative for chest tightness and shortness of breath. Cardiovascular: Negative for chest pain and palpitations. Gastrointestinal: Negative. Endocrine: Negative. Genitourinary: Negative for menstrual problem and pelvic pain. Allergic/Immunologic: Negative. Neurological: Negative for syncope and facial asymmetry. Hematological: Does not bruise/bleed easily. PHYSICAL EXAMINATION: Vitals: 01/16/24 1503 BP: 122/62 BP Site: Left Arm BP Postition: Sitting BP CUFF SIZE: L (13-17 inches) Pulse: 70 Resp: 18 Temp: 36.8 C (98.3 F) TempSrc: Oral SpO2: 92% Weight: 75.4 kg (166 lb 3.2 oz) Height: 147.3 cm (4' 10 ) Patient noted to have elevated BMI and the following intervention(s) were applied: encouragement toexercise. Physical Exam Vitals and nursing note reviewed. Constitutional: General: She is not in acute distress. Appearance: She is well-developed. She is not diaphoretic. HENT: Head: Normocephalic and atraumatic. Comments: Slight swelling of cheeks and lips. Right Ear: Tympanic membrane and external ear normal. Left Ear: Tympanic membrane and external ear normal. Nose: Nose normal. Mouth/Throat: Mouth: Mucous membranes are moist. Pharynx: No oropharyngeal exudate. Eyes: General: Right eye: No discharge. Left eye: No discharge. Conjunctiva/sclera: Conjunctivae normal. Pupils: Pupils are equal, round, and reactive to light. Neck: Thyroid: No thyromegaly. Vascular: No JVD. Cardiovascular: Rate and Rhythm: Normal rate and regular rhythm. Heart sounds: Normal heart sounds. No murmur heard. No friction rub. No gallop. Comments: Non pitting edema of bilateral lower extremities. Pulmonary: Effort: Pulmonary effort is normal. Breath sounds: Normal breath sounds. Abdominal: General: Bowel sounds are normal. There is no distension. Palpations: Abdomen is soft. There is no mass. Tenderness: There is no abdominal tenderness. Musculoskeletal: General: Normal range of motion. Cervical back: Normal range of motion and neck supple. Lymphadenopathy: Cervical: No cervical adenopathy. Skin: General: Skin is warm and dry. Capillary Refill: Capillary refill takes less than 2 seconds. Neurological: Mental Status: She is alert. Mental status is at baseline. Deep Tendon Reflexes: Reflexes are normal and symmetric. Psychiatric: Mood and Affect: Mood normal. Behavior: Behavior normal. ASSESSMENT/PLAN: Jose was seen today for follow-up. Diagnoses and all orders for this visit: Angioedema, subsequent encounter Stop lisinopril and pioglitazone Continue Prednisone taper as directed until gone. May temporarily increase blood sugars. Angioedema is 50% improved but not completely resolved. No tongue swelling. Stopped lisinopril after ER visit. ALL QUESTIONS ANSWERED Total time spent was 25 minutes: Preparing to see the patient (e.g., review of tests) Obtaining and/or reviewing separately obtained history Performing a medically appropriate examination and/or evaluation Counseling and educating the patient/family/caregiver Ordering medications, tests, or procedures Follow-up: January MALLORY Arnold 01/16/24 1530 documented in this encounterBlanchard Valley [facility] System10-21-2024 Miscellaneous Notes* Telephone Encounter - Tiffany Cardenas CMA - 01/13/2024 8:08 AM EDT ED Outreach This documentation is being used for Transition of Care purposes: Yes/No: Yes ED Outreach Date: January 13, 2024 ED Outreach Method: COMMUNICATION METHOD: Telephone ED Outreach Attempt: first ED Outreach Outcome: Contacted Patient Name of ED Facility: [facility] Date of ED Discharge: 01/02/2024 Discharge Diagnosis: Angioedema ED Chief Complaint: facial swelling Current Symptom Status: continuing- spoke with patient's child care team lead. Swelling seems resolved. deburring machine operator states that blood sugar was a little elevated after the steroid dose. deburring machine operator states patient seems to be comfortable. Denies other concerns at this time. Medication Changes Reviewed: yes Medication Questions/Concerns: denies concerns, discontinued lisinopril Follow-up PCP Scheduled: will call back to schedule. Follow-up Specialist Scheduled:n/a Follow up Testing Scheduled: n/a Patient Contacted Office Prior to ED Visit: No. Patient made aware of on-call provider and same dayappointment availability. Additional Comments: Patient will contact the office with additional concerns. documented in this encounterBlanchard Valley Health System10-21-2024 Telephone encounter Note* Telephone Encounter - Tiffany Cardenas CMA - 01/13/2024 8:08 AM EDT ED Outreach This documentation is being used for Transition of Care purposes: Yes/No: Yes ED Outreach Date: January 13, 2024 ED Outreach Method: COMMUNICATION METHOD: Telephone ED Outreach Attempt: first ED Outreach Outcome: Contacted Patient Name of ED Facility: [facility] Date of ED Discharge: 01/02/2024 Discharge Diagnosis: Angioedema ED Chief Complaint: facial swelling Current Symptom Status: continuing- spoke with patient's child care team lead. Swelling seems resolved. deburring machine operator states that blood sugar was a little elevated after the steroid dose. deburring machine operator states patient seems to be comfortable. Denies other concerns at this time. Medication Changes Reviewed: yes Medication Questions/Concerns: denies concerns, discontinued lisinopril Follow-up PCP Scheduled: will call back to schedule. Follow-up Specialist Scheduled:n/a Follow up Testing Scheduled: n/a Patient Contacted Office Prior to ED Visit: No. Patient made aware of on-call provider and same dayappointment availability. Additional Comments: Patient will contact the office with additional concerns. [facility]10-15-[facility] History of Present illness Narrative* Susan Narayanan CMA - 01/07/2024 3:00 PM EDT A1C WAS 6.3 MALLORY Arnold 01/07/24 1513 documented in this encounterBlanchard Valley Health System08-23-2024 History of Present illness Narrative* MALLORY Arnold - 11/15/2023 8:20 AM EDT Images from the original note were not included. [address] [place] [id number] SUBJECTIVE: Video Visit via Real-time Synchronous Audiovisual Provider Location: [facility] [address] [place] [id number] Patient Location: Patient's home Video Visit Consent Statement: I discussed risks, benefits, and alternatives of a real-time synchronous audiovisual consultation with the patient (and any accompanying persons) including the risks that the patient's personal health details and medical records will be discussed over real-time, synchronous, interactive video/audio/telecommunication technology, the visit will not be recorded withoutthe express consent of both the provider and the patient, and that there are some limitations compared to [id number] evaluations. The patient consented to the presence of additional virtual and/or in-person participants. We elected to proceed. Patient ID: Jose Jha is a 73 y.o. female. Chief Complaint Patient presents with covid 19 Patient is accompanied by facility RN today. Resides at local [facility]. Cognitive and intellectual delay. RN reports 4 other residents have COVID as well. Symptoms started November 13, 2023 with congestion, cough, low grade fever. Is eating and drinking. Went to urgent care yesterday, tested positive. Provider did not order or offer Paxlovid. The following portions of the patient's history were reviewed and updated as appropriate: allergies, current medications, past family history, past medical history, past social history, past surgicalhistory and problem list. Past Surgical History: Procedure Laterality Date COLONOSCOPY COLONOSCOPY N/A 02/19/2022 Performed by Sadi Solis DO at [facility] HYSTERECTOMY Past Medical History: Diagnosis Date Blind Diabetes mellitus ([facility]) Hyperlipidemia Hypertension Impacted cerumen of both ears 12/26/2016 Impulse control disorder Mental retardation Osteopenia Speech and language deficits Immunization History Administered Date(s) Administered COVID-19, mRNA, LNP-S, PF, 100mcg/0.5mL Dose 04/04/2020, 05/02/2020, 02/08/2021 COVID-19, mRNA, LNP-S, PF, 30mcg/0.3mL Dose 04/04/2020, 05/02/2020 H1N1 Inj 03/02/2009 Hepatitis B 05/04/1982, 12/18/1982 Influenza High Dose Preservative Free IM 01/09/2018, 01/05/2019, 01/23/2021 Influenza Vaccine, Quadrivalent, Adjuvanted 02/01/2022, 01/25/2023 Influenza, High-dose, Quadrivalent 01/14/2020 Influenza, Injectable, quadrivalent (PF) 12/31/2016 Influenza, Unspecified 12/31/2016 MMR 09/11/1982 Pneumococcal Conjugate 20-valent 01/25/2023 Pneumococcal Polysaccharide 02/08/2006, 02/16/2013 Polio, Unspecified 10/08/1961 Smallpox 07/19/1970 Td (adult), 2 Lf tetanus toxoid, preservative free, adsorbed 04/06/1979, 09/11/1982, 01/03/1993 Td, Unspecified 04/06/1979, 09/11/1982, 01/03/1993 Tdap 11/28/2010 Typhoid, Unspecified 07/16/1972 Zoster Live 12/02/2018 Zoster Vaccine Recombinant 12/02/2018, 02/23/2019 REVIEW OF SYSTEMS: Review of Systems Constitutional: Negative for chills and fever. HENT: Positive for congestion, postnasal drip and voice change. Eyes: Negative for visual disturbance. Respiratory: Positive for cough. Negative for chest tightness and shortness of breath. Cardiovascular: Negative for chest pain and palpitations. Gastrointestinal: Negative. Endocrine: Negative. Genitourinary: Negative for menstrual problem and pelvic pain. Musculoskeletal: Negative. Skin: Negative. Allergic/Immunologic: Negative. Neurological: Negative for syncope and facial asymmetry. Hematological: Does not bruise/bleed easily. Psychiatric/Behavioral: Negative. PHYSICAL EXAMINATION: There were no vitals filed for this visit. Deferred, Telehealth Video Visit Physical Exam Deferred, Telehealth Video Visit ASSESSMENT/PLAN: Jose was seen today for covid 19. Diagnoses and all orders for this visit: COVID-19 - nirmatrelvir-ritonavir (PAXLOVID) tablets; Take 2 tablets by mouth in the morning and 2 tablets before bedtime. Do all this for 5 days. HOLD ATORVASTATIN WHILE TAKING THIS MEDICATION. Cool mist humidification for congestion, warm salt water gargles as needed for sore throat. Tylenolas needed per marzipan maker guidelines for fever or pain. May continue PRN Tylenol for fever and pain as directed. Continue Robitussin for cough PRN as directed. Consider staying home from day program until after Monday November 20, 2023. ALL QUESTIONS ANSWERED Total time spent was 20 minutes: Preparing to see the patient (e.g., review of tests) Obtaining and/or reviewing separately obtained history Performing a medically appropriate examination and/or evaluation Counseling and educating the patient/family/caregiver Ordering medications, tests, or procedures Follow-up: 3 months MALLORY Arnold 11/15/23 1001 documented in this encounterBlanchard Valley Health System06-07-2024 History of Present illness Narrative* Anika Morocho, HOUSING AND RESIDENCE LIFE DIRECTOR-THERAPEUTIC ACTIVITIES SERVICES WORKER - 08/30/2023 8:53 AM EDT Subjective SUBJECTIVE: Patient ID: Jose Jha is a 73 y.o. female who presents for a Medicare Annual Wellness exam. Resides at [facility] Accompanied by RN today. Total care provided by staff, including medication administration. Severe cognitive and intellectual delay. Able to verbalize needs. Monitored annually and PRN by podiatry. Monitored yearly by psychiatry, Dr. Connors. RN reports incontinence of urine during the night. Would like urinalysis done. The following portions of the patient's history were reviewed and updated as appropriate: allergies, current medications, past family history, past medical history, past social history, past surgicalhistory and problem list. Past Surgical History: Procedure Laterality Date COLONOSCOPY COLONOSCOPY N/A 02/19/2022 Performed by Sadi Solis DO at [facility] HYSTERECTOMY Past Medical History: Diagnosis Date Blind Diabetes mellitus ([facility]) Hyperlipidemia Hypertension Impacted cerumen of both ears 12/26/2016 Impulse control disorder Mental retardation Osteopenia Speech and language deficits Immunization History Administered Date(s) Administered COVID-19, mRNA, LNP-S, PF, 100mcg/0.5mL Dose 04/04/2020, 05/02/2020, 02/08/2021 COVID-19, mRNA, LNP-S, PF, 30mcg/0.3mL Dose 04/04/2020, 05/02/2020 H1N1 Inj 03/02/2009 Hepatitis B 05/04/1982, 12/18/1982 Influenza High Dose Preservative Free IM 01/09/2018, 01/05/2019, 01/23/2021 Influenza Vaccine, Quadrivalent, Adjuvanted 02/01/2022, 01/25/2023 Influenza, High-dose, Quadrivalent 01/14/2020 Influenza, Injectable, quadrivalent (PF) 12/31/2016 Influenza, Unspecified 12/31/2016 MMR 09/11/1982 Pneumococcal Conjugate 20-valent 01/25/2023 Pneumococcal Polysaccharide 02/08/2006, 02/16/2013 Polio, Unspecified 10/08/1961 Smallpox 07/19/1970 Td (adult), 2 Lf tetanus toxoid, preservative free, adsorbed 04/06/1979, 09/11/1982, 01/03/1993 Td, Unspecified 04/06/1979, 09/11/1982, 01/03/1993 Tdap 11/28/2010 Typhoid, Unspecified 07/16/1972 Zoster Live 12/02/2018 Zoster Vaccine Recombinant 12/02/2018, 02/23/2019 AWV FLOWSHEET : Lifestyle Assessment Fall Risk Depression Screening Safety Assessment Hearing Assessment Personal Health End of Life Planning Cognitive Screening Clock Drawing Test: Abnormal mini mental exam deferred REVIEW OF SYSTEMS: Review of Systems Reason unable to perform ROS: RN completes ROS due to cognative status. Constitutional: Negative for chills and fever. HENT: Negative. Eyes: Negative for visual disturbance. Respiratory: Negative for chest tightness and shortness of breath. Cardiovascular: Negative for chest pain and palpitations. Gastrointestinal: Negative. Endocrine: Negative. Genitourinary: Negative for menstrual problem and pelvic pain. Musculoskeletal: Negative. Skin: Negative. Allergic/Immunologic: Negative. Neurological: Negative for syncope and facial asymmetry. Hematological: Does not bruise/bleed easily. Psychiatric/Behavioral: Negative. Behavior at baseline Objective PHYSICAL EXAMINATION: Vitals: 08/30/23 0901 BP: 130/80 Pulse: 79 Temp: 36.8 C (98.3 F) TempSrc: Temporal Weight: 60.7 kg (133 lb 14.4 oz) Patient noted to have elevated BMI and the following intervention(s) were applied: encouragement toexercise. Relevant Labs: Lab Results Component Value Date HGBA1C 6.0 09/09/2020 HGBA1C 5.7 03/21/2020 Lab Results Component Value Date MICROALBUR <0.7 09/12/2020 URINECREAT 31.21 09/12/2020 ALBCREATRA NOT CALCULATED 09/12/2020 Lab Results Component Value Date TSH 1.64 09/09/2020 TSH 1.37 09/02/2019 T4 0.72 09/09/2020 T4 0.87 09/02/2019 Lab Results Component Value Date VITD25 35.5 03/10/2019 Lab Results Component Value Date WBC 6.8 09/09/2020 RBCCOUNT 4.73 09/09/2020 HGB 14.8 09/09/2020 HCT 43.7 09/09/2020 MCV 92 09/09/2020 MCH 31.4 09/09/2020 MCHC 34.0 09/09/2020 RDW 14.5 09/09/2020 PLT 276 09/09/2020 MPV 8.5 09/09/2020 No results found for: PSA Lab Results Component Value Date SODIUM 141 09/09/2020 K 4.1 09/09/2020 CL 101 09/09/2020 CO2 27 09/09/2020 ANIONGAP 13 09/09/2020 BUN 12 09/09/2020 GLU 65 09/09/2020 CALCIUM 10.1 09/09/2020 TOTALPROTEI 8.2 (H) 09/09/2020 ALBUMIN 4.8 09/09/2020 ALKPHOS 66 09/09/2020 AST 19 09/09/2020 ALT 33 (H) 09/09/2020 GFR >60 09/09/2020 GFR >60 09/09/2020 Imaging: No results found. Physical Exam Vitals and nursing note reviewed. Constitutional: General: She is not in acute distress. Appearance: She is well-developed. She is not diaphoretic. HENT: Head: Normocephalic and atraumatic. Right Ear: Tympanic membrane and external ear normal. Left Ear: Tympanic membrane and external ear normal. Nose: Nose normal. Mouth/Throat: Mouth: Mucous membranes are moist. Pharynx: No oropharyngeal exudate. Eyes: General: Right eye: No discharge. Left eye: No discharge. Conjunctiva/sclera: Conjunctivae normal. Pupils: Pupils are equal, round, and reactive to light. Neck: Thyroid: No thyromegaly. Vascular: No JVD. Cardiovascular: Rate and Rhythm: Normal rate and regular rhythm. Heart sounds: Normal heart sounds. No murmur heard. No friction rub. No gallop. Pulmonary: Effort: Pulmonary effort is normal. Breath sounds: Normal breath sounds. Abdominal: General: Bowel sounds are normal. There is no distension. Palpations: Abdomen is soft. There is no mass. Tenderness: There is no abdominal tenderness. Musculoskeletal: General: Normal range of motion. Cervical back: Normal range of motion and neck supple. Lymphadenopathy: Cervical: No cervical adenopathy. Skin: General: Skin is warm and dry. Capillary Refill: Capillary refill takes less than 2 seconds. Neurological: Mental Status: She is alert. Mental status is at baseline. Deep Tendon Reflexes: Reflexes are normal and symmetric. Psychiatric: Mood and Affect: Mood normal. Behavior: Behavior normal. Comments: Behaviors at baseline Assessment/Plan ASSESSMENT/PLAN Jose was seen today for medicare wellness. Diagnoses and all orders for this visit: Medicare annual wellness visit, subsequent Nocturnal enuresis - POCT urinalysis dipstick only Encounter for screening mammogram for malignant neoplasm of breast - Mammography screening bilateral with CAD; Future Body mass index is 27.99 kg/m . Patient noted to have elevated BMI and the following intervention(s) were applied: Discussed current weight today. Consider healthy food choices, portion control. Avoid sugary beverages and high concentrated sweets. Routine exercise regimen encouraged. Colonoscopy screening discussed today. Risk and benefits of procedure explained. Patient completed 2021. Recommendations to repeat in 5 years. Labs per standing orders Mammogram ordered Up to date with DEXA Total time spent was 35 minutes: Preparing to see the patient (e.g., review of tests) Obtaining and/or reviewing separately obtained history Performing a medically appropriate examination and/or evaluation Counseling and educating the patient/family/caregiver Ordering medications, tests, or procedures Return in about 3 months (around 11/30/2023). There are no Patient Instructions on file for this visit. MALLORY Arnold 09/02/23 1338 documented in this encounterBlanchard Valley Health System05-17-2024 History of Present illness Narrative* MALLORY Arnold - 08/09/2023 11:59 PM EDT Patient Name: Jose Jha Date of : 1950 Date of Service: 08/09/2023 Facility: [facility] Jose Jha is a 73 y.o. female seen today at [facility] for Chief Complaint Patient presents with routine 3 month follow-up . Resides at [facility] Accompanied by RN today. Total care provided by staff, including medication administration. Severe cognitive and intellectual delay. Able to verbalize needs. Monitored by psychiatry and podiatry. Today, RN reports Jose has been doing well. Blood sugars in the AM overall average 120. Twice had blood sugars fasting in the 190's. Evening blood sugars tend to be higher due to snacking and high carbohydrate intake. Most are above 200. Is currently taking Trulicity 3 mg weekly and Januvia was added in June. She presents for her follow-up diabetic visit. She has type 2 diabetes mellitus. Her disease coursehas been stable. There are no hypoglycemic associated symptoms. There are no diabetic associated symptoms. Pertinent negatives for diabetes include no chest pain. There are no hypoglycemic complications. Symptoms are stable. There are no diabetic complications. Risk factors for coronary artery disease include diabetes mellitus, dyslipidemia, family history, hypertension, obesity, post-menopausal and sedentary lifestyle. Current diabetic treatment includes (Trulicity). She is compliant with treatment all of the time. Her weight is stable. She is following a low fat/cholesterol diet. Meal planning includes avoidance of concentrated sweets. She participates in exercise intermittently. Her homeblood glucose trend is fluctuating minimally. Her breakfast blood glucose range is generally 110-130 mg/dl. An BLANCA inhibitor/angiotensin II receptor mandie is being taken. She sees a bowling ball engraver.Eye exam is current. Hypertension This is a chronic problem. The current episode started more than 1 year ago. The problem is controlled. Pertinent negatives include no chest pain, palpitations or shortness of breath. There are no associated agents to hypertension. Risk factors for coronary artery disease include diabetes mellitus,dyslipidemia, family history, obesity and post-menopausal state. Past treatments include BLANCA inhibitors. The current treatment provides significant improvement. Hyperlipidemia This is a chronic problem. The current episode started more than 1 year ago. The problem is controlled. Exacerbating diseases include diabetes and obesity. There are no known factors aggravating her hyperlipidemia. Pertinent negatives include no chest pain or shortness of breath. Current antihyperlipidemic treatment includes statins. The current treatment provides significant improvement of lipids. There are no compliance problems. Past Medical History: Diagnosis Date Blind Diabetes mellitus ([facility]) Hyperlipidemia Hypertension Impacted cerumen of both ears 12/26/2016 Impulse control disorder Mental retardation Osteopenia Speech and language deficits Past Surgical History: Procedure Laterality Date COLONOSCOPY COLONOSCOPY N/A 02/19/2022 Performed by Sadi Solis DO at [facility] Family History Problem Relation Age of Onset Breast cancer Neg Hx Current Outpatient Medications Medication Sig Dispense Refill acetaminophen (TYLENOL) 325 mg tablet TAKE 2 TABLETS (650MG) BY MOUTH EVERY 6 HOURS NEEDED FOR MINOR DISCOMFORT OR TEMPERATURE GREATER THAN 101 60 tablet 11 alendronate (FOSAMAX) 70 mg tablet TAKE 1 TABLET BY MOUTH ONCE WEEKLY ON SATURDAY 30 MIN BEFORE 1STMEAL & OTHER MEDS W/FULL GLASS WATER & REMAIN UPRIGHT FOR 1/2 HR (6:30AM) 5 tablet 11 amLODIPine (NORVASC) 10 mg tablet TAKE 1 TABLET BY MOUTH ONCE EVERY DAY 31 tablet 11 ammonium lactate (LAC-HYDRIN) 12 % lotion APPLY TOPICALLY TO DRY SKIN 2 TIMES DAILY NEEDED 225 g11 aspirin 81 mg TAKE 1 TABLET BY MOUTH ONCE EVERY DAY (8PM) 31 tablet 11 atorvastatin (LIPITOR) 10 mg tablet TAKE 1 TABLET BY MOUTH ONCE EVERY DAY 31 tablet 11 CHEST CONGESTION RELIEF 100 mg/5 mL syrup TAKE 5 ML BY MOUTH EVERY 6 HOURS NEEDED FOR COUGH 473 mL 11 chlorhexidine (PERIDEX) 0.12 % solution Apply 15 mL to the mouth or throat 2 (two) times a day. 473mL 6 cholecalciferol, vitamin D3, 2,000 units capsule Take 1 capsule (2,000 Units total) by mouth in themorning. 30 each 11 dulaglutide (TRULICITY) 3 mg/0.5 mL pen injector Inject 3 mg under the skin once a week. 2 mL 11 escitalopram (LEXAPRO) 10 mg tablet Take 1 tablet (10 mg total) by mouth in the morning. 90 tablet 3 eyelid cleanser combination 7 foam Apply topically. mynor Lynn sun lisinopriL (PRINIVIL,ZESTRIL) 5 mg tablet TAKE 1 TABLET BY MOUTH ONCE EVERY DAY 31 tablet 11 loperamide (IMODIUM) 2 mg capsule TAKE 1 CAPSULE BY MOUTH 4 TIMES DAILY NEEDED FOR DIARRHEA ([id number]/24HRS) 30 capsule 11 risperiDONE (RisperDAL) 0.5 mg tablet TAKE 1 TABLET BY MOUTH TWICE DAILY 60 tablet 11 SITagliptin phosphate (JANUVIA) 100 mg tablet Take 1 tablet (100 mg total) by mouth in the morning.30 tablet 11 tolnaftate (TINACTIN) 1 % cream Apply 1 Dose topically in the morning and 1 Dose before bedtime. tolnaftate (TINACTIN) 1 % powder APPLY TOPICALLY TO AFFECTED AREA OF EXCORIATION UNDER BREAST 2 TIMES DAILY NEEDED 45 g 11 No current facility-administered medications for this visit. Allergies: No known drug allergies Code Status: FULL CODE The following portions of the patient's history were reviewed and updated as appropriate: allergies, current medications, past family history, past medical history, past social history, past surgicalhistory, problem list, and medication reconciliation was completed including current medication andpost discharge medication. Review of Systems Reason unable to perform ROS: Faciility RN completes ROS due to intellectual and cognative disability. Constitutional: Negative for chills and fever. HENT: Negative. Eyes: Negative for visual disturbance. Respiratory: Negative for chest tightness and shortness of breath. Cardiovascular: Negative for chest pain and palpitations. Gastrointestinal: Negative. Endocrine: Negative. Genitourinary: Negative for menstrual problem and pelvic pain. Musculoskeletal: Negative. Skin: Negative. Allergic/Immunologic: Negative. Neurological: Negative for syncope and facial asymmetry. Hematological: Does not bruise/bleed easily. Psychiatric/Behavioral: Behavior at baseline Objective BP 138/82 Pulse 76 Temp 36.6 C (97.9 F) (Temporal) Resp 16 Wt 60.7 kg (133 lb 14.4 oz) SpO2 98% BMI 27.99 kg/m Physical Exam Vitals and nursing note reviewed. Constitutional: General: She is not in acute distress. Appearance: She is well-developed. She is not diaphoretic. HENT: Head: Normocephalic and atraumatic. Right Ear: Tympanic membrane and external ear normal. Left Ear: Tympanic membrane and external ear normal. Nose: Nose normal. Mouth/Throat: Mouth: Mucous membranes are moist. Dentition: Abnormal dentition. Pharynx: No oropharyngeal exudate. Eyes: General: Right eye: No discharge. Left eye: No discharge. Conjunctiva/sclera: Conjunctivae normal. Pupils: Pupils are equal, round, and reactive to light. Comments: Legally blind Neck: Thyroid: No thyromegaly. Vascular: No JVD. Cardiovascular: Rate and Rhythm: Normal rate and regular rhythm. Heart sounds: Normal heart sounds. No murmur heard. No friction rub. No gallop. Pulmonary: Effort: Pulmonary effort is normal. Breath sounds: Normal breath sounds. Abdominal: General: Bowel sounds are normal. There is no distension. Palpations: Abdomen is soft. There is no mass. Tenderness: There is no abdominal tenderness. Musculoskeletal: General: Normal range of motion. Cervical back: Normal range of motion and neck supple. Lymphadenopathy: Cervical: No cervical adenopathy. Skin: General: Skin is warm and dry. Capillary Refill: Capillary refill takes less than 2 seconds. Neurological: Mental Status: She is alert. Mental status is at baseline. Deep Tendon Reflexes: Reflexes are normal and symmetric. Psychiatric: Mood and Affect: Mood normal. Behavior: Behavior normal. Comments: At baseline Assessment/Plan Summary / Assessment / Plan 1. 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, without long-term current use of insulin ([facility]) 2. DM type 2 with diabetic mixed hyperlipidemia ([facility]) 3. Diabetes mellitus treated with injections of non-insulin medication ([facility]) 4. Intellectual disability 5. Impulse control disorder 1. Type 2 DM Last A1c was 8.2 in June. Will repeat in August Continue Trulicity 3 mg weekly and Januvia Encourage routine home blood sugar monitoring, diet modification, and exercise regimen. Dallas does eat sugary snacks and high carbohydrate meals at times. Staff try to limit portion size and encouraging no second helping . Monitored by podiatry foot exams and care (Dr. Perez) Yearly eye care, [facility] Patient is legally blind in both eyes Is taking BLANCA and statin 2. HTN Controlled Continue lisinopril and amlodipine 3. Hyperlipidemia Controlled Continue atorvastatin 4. Impulse control with history of depression Monitored by Dr. Connors, psychiatry Continue Abilify, Risperidone, and lexapro Behaviors are at Dallas's baseline 5. Intellectual disability Transportation, meal preparation, ADL assistance, and medication administration per staff 6. Periodontal disease Secondary to Type 2 DM Reorder chlorhexidine 0.12% oral solution as directed Encourage routine dental visits or as directed by dental provider. There are no Patient Instructions on file for this visit. ELECTRONICALLY SIGNED BY: MALLORY Arnold APRN-CNP 08/13/23 1111 documented in this encounterMichael Ville [id number] History of Present illness Narrative* Anika Morocho, HOUSING AND RESIDENCE LIFE DIRECTOR-THERAPEUTIC ACTIVITIES SERVICES WORKER - 07/08/2023 2:00 PM EDT Images from the original note were not included. [address] [place] [id number] SUBJECTIVE: Patient ID: Jose Jha is a 73 y.o. female. Chief Complaint Patient presents with Diabetes A1c check Jose is accompanied by facility RN. Resides at local [facility], intellectual and cognitive disability. RN request repeat of A1c, feels testing done at [facility] was not accurate. Greater than 14%. Was done 10 days ago. RN feels her home blood sugars are not in the 300's on most days. The following portions of the patient's history were reviewed and updated as appropriate: allergies, current medications, past family history, past medical history, past social history, past surgicalhistory and problem list. Past Surgical History: Procedure Laterality Date COLONOSCOPY COLONOSCOPY N/A 02/19/2022 Performed by Sadi Solis DO at [facility] Past Medical History: Diagnosis Date Blind Diabetes mellitus ([facility]) Hyperlipidemia Hypertension Impacted cerumen of both ears 12/26/2016 Impulse control disorder Mental retardation Osteopenia Speech and language deficits Immunization History Administered Date(s) Administered COVID-19, mRNA, LNP-S, PF, 100mcg/0.5mL Dose 04/04/2020, 05/02/2020, 02/08/2021 COVID-19, mRNA, LNP-S, PF, 30mcg/0.3mL Dose 04/04/2020, 05/02/2020 H1N1 Inj 03/02/2009 Hepatitis B 05/04/1982, 12/18/1982 Influenza High Dose Preservative Free IM 01/09/2018, 01/05/2019, 01/23/2021 Influenza Vaccine, Quadrivalent, Adjuvanted 02/01/2022, 01/25/2023 Influenza, High-dose, Quadrivalent 01/14/2020 Influenza, Injectable, quadrivalent (PF) 12/31/2016 Influenza, Unspecified 12/31/2016 MMR 09/11/1982 Pneumococcal Conjugate 20-valent 01/25/2023 Pneumococcal Polysaccharide 02/08/2006, 02/16/2013 Polio, Unspecified 10/08/1961 Smallpox 07/19/1970 Td (adult), 2 Lf tetanus toxoid, preservative free, adsorbed 04/06/1979, 09/11/1982, 01/03/1993 Td, Unspecified 04/06/1979, 09/11/1982, 01/03/1993 Tdap 11/28/2010 Typhoid, Unspecified 07/16/1972 Zoster Live 12/02/2018 Zoster Vaccine Recombinant 12/02/2018, 02/23/2019 REVIEW OF SYSTEMS: Review of Systems Reason unable to perform ROS: RN completes ROS due to patient intellectual disability. Constitutional: Negative for chills and fever. HENT: Negative. Eyes: Negative for visual disturbance. Respiratory: Negative for chest tightness and shortness of breath. Cardiovascular: Negative for palpitations. Gastrointestinal: Negative. Endocrine: Negative. Genitourinary: Negative for menstrual problem and pelvic pain. Musculoskeletal: Negative. Skin: Negative. Allergic/Immunologic: Negative. Neurological: Negative for syncope and facial asymmetry. Hematological: Does not bruise/bleed easily. Psychiatric/Behavioral: Positive for behavioral problems. PHYSICAL EXAMINATION: Vitals: 07/08/23 1429 BP: 110/50 BP Site: Left Arm BP Postition: Sitting Pulse: 75 Resp: 18 Temp: 36.6 C (97.8 F) TempSrc: Oral SpO2: 94% Weight: 61.6 kg (135 lb 12.8 oz) Height: 147.3 cm (4' 10 ) Patient noted to have elevated BMI and the following intervention(s) were applied: encouragement toexercise. Physical Exam Vitals and nursing note reviewed. Constitutional: General: She is not in acute distress. Appearance: She is well-developed. She is not diaphoretic. HENT: Head: Normocephalic and atraumatic. Right Ear: Tympanic membrane and external ear normal. Left Ear: Tympanic membrane and external ear normal. Nose: Nose normal. Mouth/Throat: Mouth: Mucous membranes are moist. Pharynx: No oropharyngeal exudate. Eyes: General: Right eye: No discharge. Left eye: No discharge. Conjunctiva/sclera: Conjunctivae normal. Pupils: Pupils are equal, round, and reactive to light. Neck: Thyroid: No thyromegaly. Vascular: No JVD. Cardiovascular: Rate and Rhythm: Normal rate and regular rhythm. Heart sounds: Normal heart sounds. No murmur heard. No friction rub. No gallop. Pulmonary: Effort: Pulmonary effort is normal. Breath sounds: Normal breath sounds. Abdominal: General: Bowel sounds are normal. There is no distension. Palpations: Abdomen is soft. There is no mass. Tenderness: There is no abdominal tenderness. Musculoskeletal: General: Normal range of motion. Cervical back: Normal range of motion and neck supple. Lymphadenopathy: Cervical: No cervical adenopathy. Skin: General: Skin is warm and dry. Capillary Refill: Capillary refill takes less than 2 seconds. Neurological: Mental Status: She is alert. Mental status is at baseline. Deep Tendon Reflexes: Reflexes are normal and symmetric. Psychiatric: Mood and Affect: Mood normal. ASSESSMENT/PLAN: Jose was seen today for diabetes. Diagnoses and all orders for this visit: DM type 2 with diabetic mixed hyperlipidemia ([facility]) - POCT Hemoglobin A1c - SITagliptin phosphate (JANUVIA) 100 mg tablet; Take 1 tablet (100 mg total) by mouth in the morning. A1c 8.2% in office today. Was done at [facility] 10 days ago, greater than 14%. Continue Trulicity 3 mg weekly Start sitagliptin 100 mg oral daily Encourage routine home blood sugar monitoring, diet modification, and exercise regimen. Daily skin foot checks Yearly eye exams ALL QUESTIONS ANSWERED Total time spent was 25 minutes: Preparing to see the patient (e.g., review of tests) Obtaining and/or reviewing separately obtained history Performing a medically appropriate examination and/or evaluation Counseling and educating the patient/family/caregiver Ordering medications, tests, or procedures Follow-up: Next month at [facility]. MALLORY Arnold 07/08/23 1739 documented in this encounterBl[facility] History of Present illness Narrative* MALLORY Arnold - 05/10/2023 11:59 PM EST Patient Name: Jose Jha Date of : 1950 Date of Service: 05/10/23 Facility: [facility] is a 73 y.o. female seen today at [facility] for Chief Complaint Patient presents with routine follow up . Resides at [facility] [place] Accompanied by RN today. Total care provided by staff, including medication administration. Severe cognitive and intellectual delay. Able to verbalize needs. Monitored by psychiatry and podiatry. No concerns today. She presents for her follow-up diabetic visit. She has type 2 diabetes mellitus. Her disease coursehas been stable. There are no hypoglycemic associated symptoms. There are no diabetic associated symptoms. Pertinent negatives for diabetes include no chest pain. There are no hypoglycemic complications. Symptoms are stable. There are no diabetic complications. Risk factors for coronary artery disease include diabetes mellitus, dyslipidemia, family history, hypertension, obesity, post-menopausal and sedentary lifestyle. Current diabetic treatment includes (Trulicity). She is compliant with treatment all of the time. Her weight is stable. She is following a low fat/cholesterol diet. Meal planning includes avoidance of concentrated sweets. She participates in exercise intermittently. Her homeblood glucose trend is fluctuating minimally. Her breakfast blood glucose range is generally 110-130 mg/dl. An BLANCA inhibitor/angiotensin II receptor mandie is being taken. She sees a bowling ball engraver.Eye exam is current. Hypertension This is a chronic problem. The current episode started more than 1 year ago. The problem is controlled. Pertinent negatives include no chest pain, palpitations or shortness of breath. There are no associated agents to hypertension. Risk factors for coronary artery disease include diabetes mellitus,dyslipidemia, family history, obesity and post-menopausal state. Past treatments include BLANCA inhibitors. The current treatment provides significant improvement. Hyperlipidemia This is a chronic problem. The current episode started more than 1 year ago. The problem is controlled. Exacerbating diseases include diabetes and obesity. There are no known factors aggravating her hyperlipidemia. Pertinent negatives include no chest pain or shortness of breath. Current antihyperlipidemic treatment includes statins. The current treatment provides significant improvement of lipids. There are no compliance problems. Past Medical History: Diagnosis Date Blind Diabetes mellitus ([facility]) Hyperlipidemia Hypertension Impacted cerumen of both ears 12/26/2016 Impulse control disorder Mental retardation Osteopenia Speech and language deficits Past Surgical History: Procedure Laterality Date COLONOSCOPY COLONOSCOPY N/A 02/19/2022 Performed by Sadi Solis DO at [facility] Family History Problem Relation Age of Onset Breast cancer Neg Hx Current Outpatient Medications Medication Sig Dispense Refill acetaminophen (TYLENOL) 325 mg tablet TAKE 2 TABLETS (650MG) BY MOUTH EVERY 6 HOURS NEEDED FOR MINOR DISCOMFORT OR TEMPERATURE GREATER THAN 101 60 tablet 11 alendronate (FOSAMAX) 70 mg tablet TAKE 1 TABLET BY MOUTH ONCE WEEKLY ON SATURDAY 30 MIN BEFORE 1STMEAL & OTHER MEDS W/FULL GLASS WATER & REMAIN UPRIGHT FOR 1/2 HR (6:30AM) 5 tablet 11 amLODIPine (NORVASC) 10 mg tablet TAKE 1 TABLET BY MOUTH ONCE EVERY DAY 31 tablet 11 ammonium lactate (LAC-HYDRIN) 12 % lotion APPLY TOPICALLY TO DRY SKIN 2 TIMES DAILY NEEDED 225 g11 aspirin 81 mg TAKE 1 TABLET BY MOUTH ONCE EVERY DAY (8PM) 31 tablet 11 atorvastatin (LIPITOR) 10 mg tablet TAKE 1 TABLET BY MOUTH ONCE EVERY DAY 31 tablet 11 CHEST CONGESTION RELIEF 100 mg/5 mL syrup TAKE 5 ML BY MOUTH EVERY 6 HOURS NEEDED FOR COUGH 473 mL 11 chlorhexidine (PERIDEX) 0.12 % solution Apply 15 mL to the mouth or throat 2 (two) times a day. 473mL 6 cholecalciferol, vitamin D3, 2,000 units capsule Take 1 capsule (2,000 Units total) by mouth in themorning. 30 each 11 dulaglutide (TRULICITY) 3 mg/0.5 mL pen injector Inject 3 mg under the skin once a week. 2 mL 11 escitalopram (LEXAPRO) 10 mg tablet Take 1 tablet (10 mg total) by mouth in the morning. 90 tablet 3 eyelid cleanser combination 7 foam Apply topically. mynor Lynn sun lisinopriL (PRINIVIL,ZESTRIL) 5 mg tablet TAKE 1 TABLET BY MOUTH ONCE EVERY DAY 31 tablet 11 loperamide (IMODIUM) 2 mg capsule TAKE 1 CAPSULE BY MOUTH 4 TIMES DAILY NEEDED FOR DIARRHEA ([id number]/24HRS) 30 capsule 11 risperiDONE (RisperDAL) 0.5 mg tablet TAKE 1 TABLET BY MOUTH TWICE DAILY 60 tablet 11 tolnaftate (TINACTIN) 1 % cream Apply 1 Dose topically in the morning and 1 Dose before bedtime. tolnaftate (TINACTIN) 1 % powder APPLY TOPICALLY TO AFFECTED AREA OF EXCORIATION UNDER BREAST 2 TIMES DAILY NEEDED 45 g 11 No current facility-administered medications for this visit. Allergies: No known drug allergies Code Status: FULL CODE The following portions of the patient's history were reviewed and updated as appropriate: allergies, current medications, past family history, past medical history, past social history, past surgicalhistory, problem list, and medication reconciliation was completed including current medication andpost discharge medication. Review of Systems Reason unable to perform ROS: RN COMPLETES ROS DUE TO PATIENT COGNATIVE AND INTELLECTUAL DISABILITY. Constitutional: Negative for chills and fever. HENT: Negative. Eyes: Negative for visual disturbance. Respiratory: Negative for chest tightness and shortness of breath. Cardiovascular: Negative for chest pain and palpitations. Gastrointestinal: Negative. Endocrine: Negative. Genitourinary: Negative for menstrual problem and pelvic pain. Musculoskeletal: Negative. Skin: Negative. Allergic/Immunologic: Negative. Neurological: Negative for syncope and facial asymmetry. Hematological: Does not bruise/bleed easily. Psychiatric/Behavioral: Positive for behavioral problems. Objective BP 124/80 Pulse 78 Temp 36.2 C (97.1 F) (Temporal) Resp 16 Wt 62.1 kg (136 lb 12.8 oz) BMI 28.59 kg/m Physical Exam Vitals and nursing note reviewed. Constitutional: General: She is not in acute distress. Appearance: She is well-developed. She is not diaphoretic. HENT: Head: Normocephalic and atraumatic. Right Ear: Tympanic membrane and external ear normal. Left Ear: Tympanic membrane and external ear normal. Nose: Nose normal. Mouth/Throat: Mouth: Mucous membranes are moist. Pharynx: No oropharyngeal exudate. Eyes: General: Right eye: No discharge. Left eye: No discharge. Conjunctiva/sclera: Conjunctivae normal. Pupils: Pupils are equal, round, and reactive to light. Comments: Legally blind Neck: Thyroid: No thyromegaly. Vascular: No JVD. Cardiovascular: Rate and Rhythm: Normal rate and regular rhythm. Heart sounds: Normal heart sounds. No murmur heard. No friction rub. No gallop. Pulmonary: Effort: Pulmonary effort is normal. Breath sounds: Normal breath sounds. Abdominal: General: Bowel sounds are normal. There is no distension. Palpations: Abdomen is soft. There is no mass. Tenderness: There is no abdominal tenderness. Musculoskeletal: General: Normal range of motion. Cervical back: Normal range of motion and neck supple. Lymphadenopathy: Cervical: No cervical adenopathy. Skin: General: Skin is warm and dry. Neurological: Mental Status: She is alert. Mental status is at baseline. Deep Tendon Reflexes: Reflexes are normal and symmetric. Psychiatric: Mood and Affect: Mood normal. Behavior: Behavior normal. Thought Content: Thought content normal. Judgment: Judgment normal. Assessment/Plan Summary / Assessment / Plan 1. Essential hypertension 2. DM type 2 with diabetic mixed hyperlipidemia ([facility]) 3. Diabetes mellitus treated with injections of non-insulin medication ([facility]) 4. Receptive language disorder 5. Intellectual disability 6. Impulse control disorder 1. Type 2 DM Doing well with current regimen Facility was unable to have labs done in February, will reorder A1c, CBC with diff, CMP, Lipid panel Continue Trulicity 3 mg weekly Monitored by podiatry foot exams and care (Dr. Perez) Yearly eye care, [facility] Patient is legally blind in both eyes Is taking BLANCA and statin Component Latest Ref Rng 10/02/2022 External Microalbumin, Urine <30 <1.3 (E) 2. HTN Controlled Continue lisinopril and amlodipine 3. Hyperlipidemia Controlled Continue atorvastatin 4. Impulse control with history of depression Monitored by Dr. Connors, psychiatry Continue Abilify, Risperidone, and lexapro Behaviors are at Jose's baseline 5. Intellectual disability Transportation, meal preparation, ADL assistance, and medication administration per staff Total time spent was 30 minutes: Preparing to see the patient (e.g., review of tests) Obtaining and/or reviewing separately obtained history Performing a medically appropriate examination and/or evaluation Counseling and educating the patient/family/caregiver Ordering medications, tests, or procedures There are no Patient Instructions on file for this visit. ELECTRONICALLY SIGNED BY: MALLORY Arnold APRN-CNP 06/19/23 [id number] documented in [facility] encounterBl[facility]07[facility]23 History of Present illness Narrative* Jennifer Leon, DMD - 10/03/2022 9:57 AM EDT ----- Monday, October 03, 2022 at 11:57:14 AM ----- ----- Provider: [id number] April Leon DMD -- Clinic: [place] ----- OR EVALUATION Patient presents for evaluation to determine best course of treatment due to history of No significant medical history. Patient is accompanied by caregiver for today's appointment. Patient partially cooperated for a partial intraoral exam. Clinical findings: Normal findings It is best suited that this patient have full comprehensive examination, radiographs and treatment completed in the OR setting. Explained that the patient will be added to our OR waiting list, and the legal guardian will be contacted once a time slot becomes available. Legal Guardian: JACKSON in [place] is patient's legal guardian. Crista Home: Telma (nurse): [phone] NOTE: Patient allowed me to just look in her mouth today. Was able to note red, irriated gingiva and generalize plaque/calculus build up. Patient is not indicating that she is in any pain. Explained process of the waitlist/OR to patient's caregiver. Next Visit: OR documented in this [id number] Evaluation note* Encounter Date Diagnosis Assessment Notes Treatment Notes Treatment Clinical Notes Dec, Contact with and (cruz spected) exposure to other viral communicable diseases (ICD-10 - Z20.828) Dec,OVID-19 (ICD-10 - U07.1)Today you tested positive for the COVID virus. This mean you need to follow all CDC quarantine guidelines found at coronavirus.[place].gov. It is important to rest, increase fluids, and stay at home. Recommend contacting primary care provider and discussing best course of action if you have chronic health conditions. COVID POSITIVE education handout discharge instructions. given. Dec,ight acute otitis media (ICD-10 - H66.91)Ear infections are often a secondary infection caused from an URI, the flu or allergies. Take medication as directed. Complete all doses, even if you feel better. Tylenol or ibuprofen can help with pain. Warm pack to area for comfort helps as well. Follow up with primary care provider if no improvement of symptoms. [employer] Other [phone] Telephone encounter Note* Telephone Encounter - Jolie Ramachandran RN, BSN - 08/28/2021 8:04 AM EDT Caregiver calling and was advised by her river crossing supervisor to be sure patient's meds after today's surgeryis sent to appropriate pharmacy. Advised no meds ordered at this time and to speak to provider/caregivers at the surgery clinic. [id number] Miscellaneous Notes* Telephone Encounter - Jolie Ramachandran RN, BSN - 08/28/2021 8:04 AM EDT Caregiver calling and was advised by her river crossing supervisor to be sure patient's meds after today's surgeryis sent to appropriate pharmacy. Advised no meds ordered at this time and to speak to provider/caregivers at the surgery clinic. documented in this [id number] History of Present illness Narrative* Jim Espinoza DDS - 08/28/2021 7:10 AM EDT ----- Saturday, August 28, 2021 at 8:54:36 AM ----- ----- Provider: Whitley Davison DDS -- Clinic: [facility] ----- Dr. Espinoza's notes pt is ready for tx pt needed SRP, stubborn calculus around teeth. some cavities filled. plan was to ext 29,30, considering her fusamax medications, plan changed to keep them, as there wasno pa lesion, no complaint from pt, composite placed on 29 with minimal drilling, dry isolated environment. amalgam placed on 30-MODLB. OP Note by Sherri Amaro DDS at 08/28/2021 7:48 AM Author: Sherri Amaro DDS Service: Dentistry Author Type: Resident Filed: 08/28/2021 9:05 AM Dateof Service: 08/28/2021 7:48 AM Note Type: OP Note Status: Cosign Needed Electron Beam Operator: Sherri Amaro DDS (Resident) Cosign Required: Yes Brief Operative Note PHE OR 3 Jose Jha 71 year old female Surgical Contact Serial Number: [id number] Preoperative Diagnosis(es): Caries [K02.9] Intellectual disability [F79] Postoperative Diagnosis(es): Same as above @ENCORD@ Surgeon: Jim Espinoza DDS Ground Intelligence Officer Surgeon: Sherri Amaro DDS Anesthesia: General- Nasal ETT Estimated Blood Loss: less than 5 cc IV Fluids: 600 cc Urine Output: Not measured. Findings: The patient was brought to the operating room and placed in the supine position on the operating room table. Following satisfactory induction of GA, the patient was intubated with a nasal endotracheal tube. She was then prepped and drapped in the usual sterile fashion for dental procedures. Full mouth series were then taken and an oral examination was completed. A moistened throat pack was then placed. Full mouth scaling and root planing was then performed. The radiographs were examinedby the attending and the resident and used in conjunction with the oral exam to formulate a treatment plan. The restorative aspect of the treatment plan included the following: - #18-O, amalgam - #20-OD, amalgam - #31-OB, amalgam - #30-MOBDL, amalgam - #29-OD, composite These restorations were placed following excavation of the carious lesions on each tooth. No surgical treatment was performed. The remaining dentition was then polished with prophy paste. The oral cavity was irrigated and suctioned then the throat pack was removed. The patient tolerated the procedure well and was extubated in the operating room, and taken to the PACU in stable condition. Complications: None Status at end of surgery: Stable Medications: Outpatient Medications Marked as Taking for the 08/28/21 encounter (Hospital Encounter) Medication Sig Dispense Refill * risperiDONE (RISPERDAL) 0.25 MG tablet Take 0.25 mg by mouth 2 times daily. * lisinopril (ZESTRIL) 5 MG tablet Take 5 mg by mouth daily. * glipizide- metformin (METAGLIP) 2.5-500 MG per tablet Take 1 Tablet by mouth every evening. * glipizide-metformin (METAGLIP) 2.5-500 MG per tablet Take 2 Tablets by mouth every morning. * escitalopram (LEXAPRO) 10 MG tablet Take 10 mg by mouth daily. * atorvastatin (LIPITOR) 10 MG tablet Take 10 mg by mouth daily. * ARIPiprazole (ABILIFY) 5 MG tablet Take 5 mg by mouth daily. * amLODIPine (NORVASC) 10 MG tablet Take 10 mg by mouth daily. Dictated by: LUNA Hernandez DDS was present for the critical portions of the procedure. Sherri Amaro DDS 08/28/2021 9:01 AM documented in this [id number] Telephone encounter Note* Telephone Encounter - Rachel Padron RN - 08/25/2021 2:35 PM EDT Anesthesia consent obtained and scanned into [employer]. Scheduled for surgery 08/28/2021. [id number] Miscellaneous Notes* Telephone Encounter - Rachel Padron RN - 08/25/2021 2:35 PM EDT Anesthesia consent obtained and scanned into [employer]. Scheduled for surgery 08/28/2021. documented in this [id number] Telephone encounter Note* Telephone Encounter - Rachel Padron RN - 08/16/2021 9:07 PM EDT Patient is vaccinated for COVID-19: Moderna on 04/04/2020 & 05/02/2020. Patient does not require pre-op COVID testing per current guidelines. [id number] Miscellaneous Notes* Telephone Encounter - Rachel Padron RN - 08/16/2021 9:07 PM EDT Patient is vaccinated for COVID-19: Moderna on 04/04/2020 & 05/02/2020. Patient does not require pre-op COVID testing per current guidelines. documented in this [id number] NotePROCEDURE: XR KNEE LT 4V or > HISTORY: Unspecified fall COMPARISON: None. FINDINGS: BONES:Small periarticular degenerative osteophytes without significant joint space narrowing. No fracture, dislocation, bone lesion. SOFT TISSUES:Prominent soft tissue swelling anterior to the knee, predominantly below the level of the patella. EFFUSION:None visible. OTHER: Negative. IMPRESSION: 1. Prominent anterior soft tissue swelling; bursitis versus subcutaneous hematoma. 2. No acute bone abnormality. Mild degenerative changes. Electronically authenticated by: MAXIMUS MALAVE Date: 2021-04-21 11:20[facility] complaint+Reason for visit Narrative* Chief Complaint congestion, fever congestion, feverReason for VisitCOVID-19 [facility] [place] Work Phone: Evaluation note* Diagnosis Dental caries- Primary Unspecified dental caries [facility] noteNo assessment information availableKing[facility] [place] Work Phone: Evaluation note* Diagnosis Onset Date Resolution Status COVID-19 noneactive [facility] [place] Work Phone: Evaluation note* Diagnosis Dermatophytosis of nail- Primary Dystrophic nail Other specified disease of nail Pain around toenail, right foot Pain around toenail, left foot documented in this encounter [facility] HealthcareEvaluation note* Diagnosis 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)- Primary [facility] System[facility]* Diagnosis 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) documented in this encounter [facility] System[facility] note* Diagnosis Medicare annual wellness visit, subsequent- Primary Nocturnal enuresis Encounter for screening mammogram for malignant neoplasm of breast documented in this encounter [facility] System[facility]* Diagnosis 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, without long-term current use of insulin ([facility])- Primary DM type 2 with diabetic mixed hyperlipidemia ([facility]) Vitamin D deficiency Bladder spasms Hypertonicity of bladder documented in this encounter [facility] System[facility]* Diagnosis 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, without long-term current use of insulin ([facility])- Primary DM type 2 with diabetic mixed hyperlipidemia ([facility]) Diabetes mellitus treated with injections of non-insulin medication ([facility]) Intellectual disability Unspecified mental retardation Impulse control disorder Impulse control disorder, unspecified documented in this encounter [facility]* Diagnosis DM type 2 with diabetic mixed hyperlipidemia ([facility]) documented in this encounter [facility] System[facility] note* Diagnosis DM type 2 with diabetic mixed hyperlipidemia ([facility])- Primary Essential hypertension Unspecified essential hypertension Diabetes mellitus treated with injections of non-insulin medication ([facility]) Receptive language disorder Other developmental speech or language disorder Intellectual disability Unspecified mental retardation Impulse control disorder Impulse control disorder, unspecified documented [facility] this encounter [facility]* Diagnosis Vitamin D deficiency DM type 2, not at goal ([facility]) Essential hypertension Unspecified essential hypertension DM type 2 with diabetic mixed hyperlipidemia ([facility]) documented in this encounter [facility] System[facility] note* Diagnosis DM type 2 with diabetic mixed hyperlipidemia ([facility])- Primary documented in this encounter [facility] System[facility] note* Diagnosis COVID-19- Primary documented in this encounter [facility] System[facility] note* Diagnosis Decay, teeth Unspecified dental caries 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, without long-term current use of insulin ([facility]) documented in this encounter [facility]* Diagnosis Angioedema, subsequent encounter- Primary documented in this encounter [facility]* Diagnosis Encounter for immunization- Primary documented in this encounter [facility]* Diagnosis DM type 2 with diabetic mixed hyperlipidemia ([facility])- Primary Impulse control disorder Impulse control disorder, unspecified Intellectual disability Unspecified mental retardation Essential hypertension Unspecified essential hypertension [facility] Diagnosis Diabetes mellitus treated with injections of non-insulin medication ([facility])- Primary Essential hypertension Unspecified essential hypertension DM type 2 with diabetic mixed hyperlipidemia ([facility]) Impulse control disorder Impulse control disorder, unspecified Intellectual disability Unspecified mental retardation Comprehensive diabetic foot examination, type 2 DM, encounter for ([facility]) [facility] Diagnosis 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) [facility]* Diagnosis DM type 2 with diabetic mixed hyperlipidemia ([facility])- Primary [facility]* Diagnosis Dermatophytosis of nail- Primary Dystrophic nail Other specified disease of nail Onychocryptosis Ingrowing nail Pain around toenail, right foot Pain around toenail, left foot documented in this encounter [facility] HealthcareEvaluation note* Diagnosis Essential hypertension- Primary Unspecified essential hypertension Diabetes mellitus treated with injections of non-insulin medication ([facility]) DM type 2 with diabetic mixed hyperlipidemia ([facility]) Impulse control disorder Impulse control disorder, unspecified Intellectual disability Unspecified mental retardation [facility]* Diagnosis Medicare annual wellness visit, subsequent- Primary [facility]* Diagnosis DM type 2 with diabetic mixed hyperlipidemia ([facility])- Primary Vitamin D deficiency [facility]* Diagnosis Vitamin D deficiency DM type 2, not at goal ([facility]) Essential hypertension Unspecified essential hypertension DM type 2 with diabetic mixed hyperlipidemia ([facility]) [facility]* Diagnosis Decay, teeth Unspecified dental caries 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, without long-term current use of insulin ([facility]) documented [facility]* Diagnosis DM type 2 with diabetic mixed hyperlipidemia ([facility]) Vitamin D deficiency documented [facility]* Diagnosis Diabetes mellitus treated with injections of non-insulin medication ([facility])- Primary Essential hypertension Unspecified essential hypertension Encounter for immunization [facility]* Diagnosis Dermatophytosis of nail- Primary Dystrophic nail Other specified disease of nail Pain around toenail, right foot Pain around toenail, left foot documented in this encounter [facility] HealthcareHistory general Narrative - Reported* Type Description Date Medical History diabetes honeyitus [employer] Other InstructionsNot on filedocumented in this encounter [facility] [employer] SystemInstructionsNot on filedocumented in this encounter [facility] [employer] SystemInstructions* Attachments The following attachments cannot be sent through Care Everywhere. * Yearly Physical for Adults ([place]) documented in this encounterProStumpedia SystemInstructionsNot on file documented in this encounterJ.W. [facility] SystemInstructions* Attachments The following attachments cannot be sent through Care Everywhere. * Blood Glucose Monitoring ([place]) documented in this encounterProStumpedia SystemInstructionsNot on file documented in this encounterJ.W. Ruby [facility] Hospitalditlo SystemInstructions* Attachments The following attachments cannot be sent through Care Everywhere. * Blood Glucose Monitoring ([place]) * Heart Disease in Diabetics ([place]) documented in this encounterProStumpedia SystemInstructionsNot on file documented in this encounterJ.W. Ruby [facility] Hospitalditlo SystemInstructions* Attachments The following attachments cannot be sent through Care Everywhere. * Diabetes and diet ([place]) documented in this encounterJ.W. [facility] Hospitalditlo SystemInstructions* Attachments The following attachments cannot be sent through Care Everywhere. * COVID-19 overview ([place]) documented in this encounterProStumpedia SystemInstructionsNot on file documented in this encounterProStumpedia SystemInstructionsNot on file documented in this encounterJ.W. Ruby [facility] Hospitalditlo SystemInstructions* Attachments The following attachments cannot be sent through Care Everywhere. * Angioedema ([place]) documented in this encounterUniversity [facility] Medical CenterStumpedia SystemInstructions* Attachments The following attachments cannot be sent through Care Everywhere. * Diabetes and diet ([place]) documented in this encounterProStumpedia SystemInstructionsNot on file documented in this encounterProStumpedia SystemInstructionsNot on file documented in this [email or web address] SystemInstructionsNot on file documented in this encounterJ.W. Ruby [facility] Hospitalditlo SystemInstructions* Attachments The following attachments cannot be sent through Care Everywhere. * Foot care for people with diabetes ([place]) documented in this encounterProUniversity Hospitals [facility] Centerditlo SystemInstructions* Attachments The following attachments cannot be sent through Care Everywhere. * Routine physical for adults ([place]) documented in this encounterProOhiohealth [facility] SystemInstructionsNot on file documented in this encounterTrinity Health System SystemInstructionsNot on file documented in this encounterProOhiohealth Van [facility] System Summary Purpose Family History No Family History Records FoundNo Family History Records FoundNo Family History Records FoundNo Family History Records FoundNo Family History Records FoundNo Family History Records Found Advance Directives Advance Directive Response Recorded Date/ Time Advance Directives No June 08 020 2:24pm Chief Complaint and Reason for Visit Chief Complaint congestion, fever Additional Source Comments Reason for Visit (unrecogniz ed section and content) ReasonOnset DateCommentsPre-surgical Xxhvbrdgrw59/25/2022Pre-op COVID testing not neededReasonOnset DateCommentsPre-surgical Ftpdzyyvdz13/03/2022nesthesia consent obtainedReasonCommentsMed RefillReasonCommentsDM Foot CarePt is here today with her caregiver for diabetic foot care, pt is blind and diabetic. BS: ? A1CL: 6.3Lv Nae Morocho [id number]: 6.5ReasonCommentsMedicare WellnessReason CommentsLabs OnlyReasonCommentsroutine 3 month follow-upReasonCommentsroutine follow ieEjaldxLhwknrfoPyqxdqrjV6v checkReasonCommentscovid 19ReasonOnset Date CommentsEr Follow-up4ReasonCommentsFollow-upHospital 01/11 swollen face ReasonCommentsNail careJose Jha is a 74 y.o. female. Pt is here today with her caregiver Fidel for diabetic foot care, pt is blind and diabetic. BS: ? A1CL: 8.8/Lv Nae Morocho 06/17/2024 SSReasonCommentsotherroutine follow upReason CommentsEstablish careReasonCommentsDM Foot CareEstablished patient presents today with her caregiver Fidel for diabetic nail care. PCP: Nae Morocho 01/04/25, A1C: 7.7, BS: n/a INFORMATION SOURCE (unrecogn ized section and content) DATE CREATED AUTHOR 03/24/2022 [facility] DATE CREATED AUTHOR AUTHOR'S ORGANIZ ATION 10/09/2022 [facility] DATE CREATED AUTHOR AUTHOR'S ORGANIZ ATION 09/06/2023 [facility] DATE CREATED AUTHOR AUTHOR'S ORGANIZ ATION 07/03/2024 [facility] DATE CREATED AUTHOR AUTHOR'S ORGANIZ ATION 01/05/2025 [facility] DATE CREATED AUTHOR AUTHOR'S ORGANIZ ATION 02/01/2025 [facility] EPIC Care Teams (unrecognized sec tion and content) Team Status: Active Member Role Status Dates Anika Morocho NP-[place] Primary Care Provider Active Team Status: Inactive Member Role Status Dates Anika Morocho NP-C Primary Care Provider Active Start: November 14, 2023 End: November 13Sheri Johnson ProviderActiveStart: November 14, 2023 End: November 14, 2023Team MemberRelationshipSpecialtyStart DateEnd Date Anika Morocho APRN-[employer] WORKER [address] [place] [address] PCP - GeneralNurse Practitioner12/14/16Team MemberRelationshipSpecialtyStart Date End Date Anika Morocho CRNP [address] [place] [address] Referring PhysicianNurse Practitioner10/14/23Team MemberRelationshipSpecialty Start DateEnd Date Anika Morocho CRNP [address] [place] [address] Referring PhysicianNurse Practitioner10/14/23Team MemberRelationshipSpecialty Start DateEnd Date Anika Morocho APRN-CNP [address] [place] [address] PCP - GeneralNurse Practitioner12/14/16Team MemberRelationshipSpecialtyStart Date End Date Anika Morocho [employer]OUSING [employer] RESIDENCE LIFE DIRECTOR-[facility] [address] [place] [address] PCP - GeneralNurse Practitioner12/14/16Team MemberRelationshipSpecialtyStart Date End Date Anika Morocho [facility] [address] [place] [address] PCP - GeneralNurse Practitioner12/14/16am MemberRelationshipSpecialtyStart Date End Date Anika Morocho [facility] [address] [place] [address] PCP - GeneralNurse Practitioner12/14/16am MemberRelationshipSpecialtyStart Date End Date Anika Morocho [employer]OUS[employer] DIRECTOR-[facility] [address] [place] [address] PCP - GeneralNurse Practitioner12/14/16Team MemberRelationshipSpecialtyStart Date End Date Anika Morocho [employer]OUS[employer] DIRECTOR-[facility] [address] [place] [address] PCP - GeneralNurse Practitioner12/14/16Team MemberRelationshipSpecialtyStart Date End Date Anika Morocho [facility]ID[facility] [address] [place] [address] PCP - GeneralNurse Practitioner12/14/16Team MemberRelationshipSpecialtyStart Date End Date Anika Morocho [employer]OUS[employer] DIRECTOR-[facility] [address] [place] [address] PCP - GeneralNurse Practitioner12/14/16am MemberRelationshipSpecialtyStart Date End Date Anika Morocho [facility] [address] [place] [address] PCP - GeneralNurse Practitioner12/14/16am MemberRelationshipSpecialtyStart Date End Date Anika Morocho [facility] [address] [place] [address] PCP - GeneralNurse Practitioner12/14/16Team MemberRelationshipSpecialtyStart Date End Date Anika Morocho [facility] [address] [place] [address] PCP - GeneralNurse Practitioner12/14/16Team MemberRelationshipSpecialtyStart Date End Date Anika Morocho [facility] [address] [place] [address] PCP - GeneralNurse Practitioner12/14/16Team MemberRelationshipSpecialtyStart Date End Date Anika Morocho CRNP [address] [place] [address] Referring PhysicianNurse Practitioner10/14/23Team MemberRelationshipSpecialty Start DateEnd Date Anika Morocho [facility] [address] [place] [address] PCP - GeneralNurse Practitioner12/14/16Team MemberRelationshipSpecialtyStart Date End Date Anika Morocho [facility] PCP - GeneralNurse Practitioner12/14/16am MemberRelationshipSpecialtyStart Date End Date Anika Morocho [facility] PCP - GeneralNurse Practitioner12/14/16am MemberRelationshipSpecialtyStart Date End Date Terese Edwards, [facility] [address] [place] [address] PCP - GeneralInternal Medicine10/22/24Team MemberRelationshipSpecialtyStart Date End Date Terese Edwards, [facility] [address] [place] [address] PCP - GeneralInternal Medicine10/22/24Team MemberRelationshipSpecialtyStart Date End Date Terese Edwards, [facility] [address] [place] [address] PCP - GeneralInternal Medicine10/22/24Team MemberRelationshipSpecialtyStart Date End Date Anika Morocho CRNP [address] [place] [address] Referring PhysicianNurse Practitioner10/14/23Team MemberRelationshipSpecialty Start DateEnd Date Anika Morocho CRNP [address], [place] [address] Referring PhysicianNurse Practitioner10/14/23 Goals (unrecognized section and content) Goals may be documented in a n alternate section FOR RECORDS PERTAINING TO PATIENTS WHO ARE OR HAVE BEEN ENROLLED IN A CHEMICAL DEPENDENCY/SUBSTANCEABUSE PROGRAM, SOME INFORMATION MAY BE OMITTED. This clinical summary was aggregated from multiple sources. Caution should be exercised in using it in the provision of clinical care. This summary normalizes information from multiple sources, and as a consequence, information in this document may materially change the coding, format and clinical context of patient data. In addition, data may be omitted in some cases. CLINICAL DECISIONS SHOULD BE BASED ON THE PRIMARY CLINICAL RECORDS. [employer] provides no warranty or guarantee of the accuracy or completeness of information in this document.
--- OUTSIDE RECORDS SUMMARY | 2025-03-22 06:34 | XMS_ITS | Clinical Summary ---
Author Organization [facility] Address [address] [place] [address] Care Team Providers Care Asset Availability Leader Name Role Phone Ann Morocho Unavailable [phone] Allergies No known active allergies Medications MedicationSigDispense QuantityRefillsLast FilledStart DateEnd DateStatus alendronate (Fosamax) 70 MG tablet Take 70 mg by mouth11/01/2022ctive amLODIPine (Norvasc) 10 MG tablet Take 10 mg by mouth Daily11/01/2022ctive aspirin 81 MG EC tablet Take 81 mg by mouth11/01/2022ctive atorvastatin (Lipitor) 10 MG tablet Take 10 mg by mouth Daily11/01/2022ctive chlorhexidine (Peridex) 0.12 % solution Take 15 mL by mouth in the morning and 15 mL in the evening.Active escitalopram (Lexapro) 10 MG tablet Take 10 mg by mouth in the morning.10/30/2022ctive lisinopril 5 MG tablet Take 5 mg by mouth Daily11/01/2022ctive risperiDONE (RisperDAL) 0.5 MG tablet Take 0.5 mg by mouth in the morning and 0.5 mg in the evening.10/30/2022ctive Trulicity 3 MG/0.5ML solution pen-injector Inject 3 mg under the skin 1 (one) time per week03/14/2023ctive cholecalciferol (Vitamin D-3) 50 MCG (1999) capsule Take 2,000 Units by mouth Daily10/26/2022ctive acetaminophen (Tylenol) 325 MG tablet 11/01/2022ctive ammonium lactate (Lac-Hydrin) 12 % lotion Apply gutqzcmeu98/10/2023ctive Chest Congestion Relief 100 MG/5ML liquid 11/01/2022ctive loperamide (Imodium) 2 MG capsule 2 mg11/01/2022ctive tolnaftate (Tinactin) 1 % powder if sgiyyr5911/01/2022ctive Mounjaro 7.5 MG/0.5ML solution auto-injector 5Active Active Problems No known active problems Encounters DateTypeDepartmentCare FdoiSjmdfovanfz55/10/2025 9:30 AM ESTProcedure Visit [facility] [address] [place] [id number] Harry Perez, JERSON Dermatophytosis of nail (Primary Dx); Dystrophic nail; Pain around toenail, right foot; Pain around toenail, left foot02/01/2025bstract [facility] [address] [place] [address] Harry Perez DPM 02/01/2025amboo flowsheet [facility] [address] [place] [address] Harry Perez DPM 02/01/2025Travelfrom Last 3 Months Immunizations ImmunizationAdministration DatesNext DueHep B, adult12/18/1982,05/04/1982 Influenza, High Dose Seasonal, Preservative Free01/23/2021,01/05/2019,01/09/2018 Influenza, High-dose Seasonal, Quadrivalent, Preservative Free01/14/2020 Influenza, Seasonal, Quadrivalent, Patestrkri74/03/2023,02/01/2022Influenza, injectable, quadrivalent, preservative free12/31/2016MMR09/11/1982Novel epkfdowxp-V5B2-18, preservative-free03/02/2009Pfizer Purple Cap SARS-CoV-2 Bmxnrogsfqv52/08/2021,1Pneumococcal Conjugate PCV Pneumococcal Polysaccharide ASXS459904/18/2012,02/08/2006Polio, Unspecified 07/17/1962TD (adult), 2 Lf tetanus toxoid, preservative free, ubfhcfau41/12/1993 ,09/11/1982,04/06/1979Tdap11/28/2010Typhoid, Oeiibqxmzen04/24/1973Vaccinia (smallpox)07/19/1970Zoster, Gadczijlzfd26/02/2019,12/02/2018 Family History Medical HistoryRelationNameCommentsColon polypsMotherColon polypsSisterRelation NameStatusCommentsMotherSister Social History Tobacco UseTypesPacks/DayYears UsedDateSmoking Tobacco: NeverSmokeless Tobacco: Never Tobacco Cessation:Counseling Given: Not Answered Alcohol UseStandard Drinks/WeekCommentsNever0 (1 standard drink = 0.6 oz pure alcohol)CommentsUnknownSex and Gender InformationValueDate RecordedSex Assigned at BirthNot on fileLegal BrfBhpeco79/15/2023 6:41 PM EDTGender Identity Not on fileSexual OrientationNot on file Last Filed Vital Signs Vital SignReadingTime TakenCommentsBlood Pressure--Pulse--Temperature-- Respiratory Rate--Oxygen Saturation--Inhaled Oxygen Concentration--Xewqhx83.7 kg (136 lb)02/01/2025 9:28 AM HPMRxkoep294.9 cm (4' 11 )02/01/2025 9:28 AM ESTBody Mass Index27.4702/01/2025 9:28 AM EST Plan of Treatment DateTypeDepartmentCare Team (Latest Contact Info)Uiqdaydrbqk06/11/2026 9:30 AM EDTProcedure Visit [facility] [address] [facility] [place] [address] Harry Perez DPM [address] [place] [address] Health MaintenanceDue DateLast DoneCommentsCT Xyjmzoyovlnx1951Colonoscopy 1Colorectal Cancer Irhltsukm1951FIT-DNA1951FIT1950 FOBT1951 2854Xvullwqrhadlq39/11/8617Dutekjjda26, 02/04/2023, 07/27/2021, Additional history existsPneumococcal Vaccine: 65+ YearsCompleted 01/25/2023, 02/16/2013, 02/08/2006Influenza GkypwfqSmeelrdbc62/13/2025, 02/07/2024, 01/25/2023, Additional history exists Insurance Care Teams Team MemberRelationshipSpecialtyStart DateEnd Date Ann Morocho CRNP [address], [place] [address] Referring PhysicianNurse Practitioner10/14/23
--- OUTSIDE RECORDS SUMMARY | 2025-03-22 06:34 | XMS_ITS | Encounter Summary ---
Author Organization [employer] tem Address [id number] [address] [place] [address] Care Team Providers Care Neurology Professor Name Role Phone Heron Edwards LOOM TECHNICIAN-PRODUCT ASSEMBLER Primary Care Provider + Reason for Visit * ReasonCommentsMed Refill Encounter Details DateTypeDepartmentCare Team (Latest Contact Info)Hkdcaijlylc89/24/2025Refill [facility] [address] [facility] [place] [address] Heron Edwards, LOOM TECHNICIAN-PRODUCT ASSEMBLER [address], [address] [address] Social History Tobacco UseTypesPacks/DayYears UsedDateSmoking Tobacco: NeverSmokeless Tobacco: NeverAlcohol UseStandard Drinks/WeekCommentsNo0 (1 standard drink = 0.6 oz pure alcohol)Overall Financial Resource Strain (CARDIA)AnswerDate RecordedHow hard is it for you to pay for the very basics like food, housing, medical care, and heating?Not hard at all01/04/2025PHQ-2AnswerDate RecordedTotal Illhs807 PRAPARE - TransportationAnswerDate RecordedIn the past 12 [...] stay in as a part of a household?No5ChildcareAnswerDate RecordedChildcareUnknown 08/23/2018EmploymentAnswerDate YufzcahhIjukwwnegmDoxivax01/01/2019Hunger ScreeningAnswerDate RecordedWithin the past 12 months we worried whether our food would run out before we got money to buy more.Never True01/04/2025Within the past 12 months the food we bought just didn't last and we didn't have money to get more.Never True01/04/2025Purpose - LifeAnswerDate RecordedPurpose and direction in gnruRlsqdnm52/15/2021CommentsNoSex and Gender Information ValueDate RecordedSex Assigned at BirthNot on fileLegal LggEqezek54/06/2015 11:33 AM EDTGender IdentityNot on fileSexual OrientationNot on filedocumented as of this encounter Plan of Treatment DateTypeDepartmentCare Team (Latest Contact Info)Dyosablwubj12/13/2026 9:00 AM ESTOffice Visit [facility] [address] [place] [address] Heron Edwards, LOOM TECHNICIAN-PRODUCT ASSEMBLER [address], [place] [address] documented as of this encounter Visit Diagnoses Not on filedocumented in this encounter Additional Health Concerns AssessmentNoted TimePHQ-9 Depression Total Score: 1:41 PM EDTA Body Mass Index follow-up plan has been documented for the qxvdyon9309/14/2024 1:27 PM EDTdocumented as of this encounter Care Teams Team MemberRelationshipSpecialtyStart DateEnd Date Heron Edwards, LOOM TECHNICIAN-PRODUCT ASSEMBLER [address] [place] [address] PCP - GeneralInternal Medicine10/22/24documented as of this encounter
--- OUTSIDE RECORDS SUMMARY | 2025-03-22 06:35 | XMS_ITS | Clinical Summary ---
Author Organization [facility] Address [address] [place] [address] Care Team Providers Care Facility Service Associate Name Role Phone Unavailable Primary Care Provider Unavailabl e Source Comments The following information is NOT included in Care Everywhere downloads:Psychiatric notes, ECG results, Cardiac Rehab notes, Pulmonary Function notes, data from SmartForms (includes but not limited toPregnancy data,audiograms, eye exams, pre-surgical evaluation notes, well-child exam data).[facility] Allergies No known active allergies Medications MedicationSigDispense QuantityRefillsLast FilledStart DateEnd DateStatus alendronate (FOSAMAX) 70 MG tablet Take 70 mg by mouth once weekly. On SaturdayActive amLODIPine (NORVASC) 10 MG tablet Take 10 mg by mouth daily.Active ARIPiprazole (ABILIFY) 5 MG tablet Take 5 mg by mouth daily.Active aspirin 81 MG enteric coated tablet Take 81 mg by mouth daily.Active atorvastatin (LIPITOR) 10 MG tablet Take 10 mg by mouth daily.Active chlorhexidine (PERIDEX) 0.12 % oral solution Take 15 mL by mouth 2 times daily.Active escitalopram (LEXAPRO) 10 MG tablet Take 10 mg by mouth daily.Active glipizide-metformin (METAGLIP) 2.5-500 MG per tablet Take 2 Tablets by mouth every morning.Active glipizide-metformin (METAGLIP) 2.5-500 MG per tablet Take 1 Tablet by mouth every evening.Active lisinopril (ZESTRIL) 5 MG tablet Take 5 mg by mouth daily.Active risperiDONE (RISPERDAL) 0.25 MG tablet Take 0.25 mg by mouth 2 times daily.Active dulaglutide (TRULICITY) 1.5 MG/0.5ML SOPN injection Inject 1.5 mg under the skin once weekly.Active acetaminophen (TYLENOL) 325 mg tablet Take 2 Tablets by mouth every 6 hours as needed.Active Loperamide HCl (IMODIUM ORAL) Take 2 mg by mouth 4 times daily as needed.Active ondansetron (ZOFRAN-ODT) 4 MG disintegrating tablet Take 4 mg by mouth every [address] 1 tablet under tongue as needed for nausea.Active guaifenesin (ROBITUSSIN) 100 MG/5ML syrup Take 5 mL by mouth every 6 hours as needed.Active tolnaftate (TINACTIN) 1 % cream Apply 1 Dose topically 2 times daily. Apply topically to affected area under breast 2 times daily as needed.Active carbamide peroxide (DEBROX/MURINE) 6.5 % otic solution Place 5 Drops in both ears 2 times a week.Active mupirocin (BACTROBAN) 2 % ointment Apply 1 Dose topically 2 times daily. Apply to affected area twice daily .Active Active Problems ProblemNoted DateDiagnosed DateDental ibiyms5707/24/2021 Overview (07/24/2021): Added automatically from request for surgery [id number] Immunizations ImmunizationAdministration DatesNext DueInfluenza, injectable, adjuvanted, quadrivalent, preservative free (RCQ=120)02/01/2022Influenza, injectable, high dose seasonal, trivalent, preservative free (ENI=999)01/23/2021,01/05/2019, 01/09/2018Influenza, injectable, high-dose seasonal, quadrivalent, preservative free (NQJ=860)01/14/2020Influenza, novel F9U3-07, injectable (SZY=119)03/02/2009 Influenza, unspecified formulation (CVX=88)12/31/2016MMR, Mreakgd-Kmpby-Pnzwwqr (CVX=03)09/11/1982Moderna Monovalent (12+ yrs) COVID-19 vaccine, mRNA, spike protein, LNP, PF, 100 mcg/0.5 mL (KNS=900)02/08/2021,05/02/2020,04/04/2020 Pneumococcal polysaccharide 23 Valent (PPSV23) (CVX=33)02/16/2013,02/08/2006 Polio, unspecified formulation (CVX=89)10/08/1961Td (adult), 2 Lf tetanus toxoid, preservative free, adsorbed (CVX=09)01/03/1993,09/11/1982,04/06/1979Tdap (QCA=907)11/28/2010Typhoid, unspecified formulation (CVX=91)07/16/1972Vaccinia (smallpox) (CVX=75)07/19/1970Zoster Live (ZVL,Shingles) (MEJ=446)12/02/2018 Zoster Recombinant (RZV,Shingles) (CPC=095)02/23/2019 Social History Tobacco UseTypesPacks/DayYears UsedDateSmoking Tobacco: NeverSmokeless Tobacco: NeverAlcohol UseStandard Drinks/WeekCommentsNever0 (1 standard drink = 0.6 oz pure alcohol)Substance UseTypesUse/WeekCommentsNeverCommentsNoSex and Gender InformationValueDate RecordedSex Assigned at BirthNot on fileLegal Sex Tarwwy7805/30/2020 1:16 PM ESTGender IdentityNot on fileSexual OrientationNot on file Last Filed Vital Signs Vital SignReadingTime TakenCommentsBlood Wyttljsh682/6206 9:45 AM EDT Hktrw9969 9:45 AM RTPNahywgqhawl69.1 ??C (97 ??F)08/28/2021 9:45 AM EDT Respiratory Wyro4630 9:45 AM EDTOxygen Hyqmkxecsv15%08/28/2021 9:45 AM EDTInhaled Oxygen Concentration--Weight--Height--Body Mass Index-- Plan of Treatment Health MaintenanceDue DateLast YrkjEuvrmhxxNcccuifjgbs1951Hepatitis C Pygltquz56/11/1969Hepatitis A (HAV) Vaccine (optional start 19+ years)1970 CRC Lqpfeevth43/11/8234Sgmnpfystke48/11/1996Cologuard (Stool DNA)02/03/1996FIT 02/03/1996Hepatitis B (HBV) Vaccine (optional start 60+ years)2011 Pneumococcal Vaccine(s) (50+ yrs) (2 of 2 - PCV), 02/08/2006 Annual Wellness Visit (G0439)04/25/2018Shingles (RZV) Vaccine (3 of 3)04/20/2019 02/23/2019, 12/02/2018Tetanus (Td or Tdap) Slrebvq50, 01/03/1993, 09/11/1982, Additional history kdraxoJzaoxbnxgeg95/05/2023 07/27/2021, 06/09/2020, 10/17/2017, Additional history existsCOVID-19 Vaccine ( season)/, 05/02/2020, 04/04/2020Influenza Vaccine (#1)/12/2021, 01/23/2021, 01/14/2020, Additional history existsRSV vaccine (adult) (1 - 1-dose 75+ series)2026Tdap FgskhtuDituymuiz63/06/2011 Bone XnjaavtxdgrbPquzmnrrn92/11/2021, 12/29/2018, 10/12/2016Pap Smear Discontinued Insurance
[2025-03-22 07:02] LABS: Hematocrit 44.8 % (36.0-48.0); Hemoglobin 15.0 g/dL (12.0-16.0); Immature Granulocytes Abs Auto 0.03 10^3/uL (0.00-0.03); Immature Granulocytes Pct Auto 0.4 % (0.0-0.5); Lymphocytes Absolute Auto 2.9 10^3/uL (1.2-3.8); Mean Corpuscular HGB Conc 33.5 g/dL (29.9-35.2); Mean Corpuscular Hemoglobin 30.9 pg (26.7-34.0); Mean Corpuscular Volume 92.4 fL (81.0-99.0); Platelet Count 292 10^3/uL (150-450); Red Blood Count 4.85 10^6/uL (4.20-5.40); White Blood Count 7.8 10^3/uL (4.0-11.0)
[2025-03-22 07:23] LABS: Alanine Aminotransferase 33 U/L (14-59); Albumin Globulin Ratio 0.8; Albumin Level 3.9 g/dL (3.4-5.0); Alkaline Phosphatase 95 U/L (46-116); Anion Gap 14.0; Aspartate Amino Transferase 14 U/L (15-37); Blood Urea Nitrogen 7.0 mg/dL (7.0-18.0); Calcium 9.4 mg/dL (8.5-10.1); Carbon Dioxide 29.9 mmol/L (21.0-32.0); Chloride 102 mmol/L (98-107); Cholesterol 139 mg/dL (<=200); Estimated GFR (African America >60 (>=60 mL/min/1.73m^2); Estimated GFR (Non-African Ame >60 (>=60 mL/min/1.73m^2); Globulin 4.8 g/dL; Glucose 179 mg/dL (74-106); HDL Cholesterol 54 mg/dL (40-60); Potassium 3.9 mmol/L (3.5-5.1); Sodium 142 mmol/L (136-145); Total Protein 8.7 g/dL (6.4-8.2); Triglycerides 106 mg/dL (<=150); VLDL CHOLESTEROL 21.2 mg/dL
== END 2025-03-22 06:32 | disposition home or self-care (01) ==
LOC: LAB 06:31
PROVIDERS: PCP Nurse Practitioner; Visit Provider Nurse Practitioner
DX: E11.65 Type 2 diabetes mellitus with hyperglycemia (principal); I10 Essential (primary) hypertension; E78.2 Mixed hyperlipidemia; E55.9 Vitamin D deficiency, unspecified
CPT/HCPCS: 36415; 80053; 80061; 83036; 85025